=== PATIENT | female | born 1970 | race Caucasian/White ===

== ENCOUNTER 2016-08-28 16:29 | Emergency (ER) | payer OTHER ==
[~2016-08-28] VITALS: Ht 147.3 cm; Wt 62.0 kg
[~2016-08-28 16:29] MED LIST: ALBUAER19 INH; ALPR-411 PO; CYAN3INJ IM; MULTCHW PO; POLY99.02 OP
[2016-08-28 16:35] VITALS: TEMP 36.8; Ht 147.3 cm; Wt 62.0 kg
[2016-08-28] MEDS ORDERED: MULT-845 PO (16:48)
[2016-08-28] MEDS ORDERED: VNTHFA/IN INH (16:48)
[2016-08-28] MEDS ORDERED: NITR1CAP16 PO (16:48)
[2016-08-28] MEDS ORDERED: ZINC1TAB PO (16:48)
[2016-08-28] MEDS ORDERED: ERGO500037 PO (16:48)
[2016-08-28] MEDS ORDERED: ALPR-411 PO (16:48)
[2016-08-28] MEDS ORDERED: CYNI1000 INJ (16:50)
[2016-08-28] MEDS ORDERED: KETOROLAC TROMETHAMINE 60 MG/2 ML VIAL IM STA (17:07)
--- NOTE | 2016-08-28 18:37 | DIAGNOSTIC IMAGING REPORT ---
LEFT SHOULDER 3 VIEWS HISTORY: Left shoulder pain COMPARISON: None. FINDINGS: There is no fracture or dislocation. Soft tissues are unremarkable. Partially visualized left-sided shunt catheter is unchanged in appearance. The left clavicle is intact. IMPRESSION: No fractures. Electronically signed by: Bill Paulino M.D. 08/28/2016 6:36 PM Dictated Date/Time: 08/28/2016 6:34 PM
--- NOTE | 2016-08-28 18:40 | EMERGENCY ROOM VISIT NOTE ---
ED Visit Note First contact with patient: 16:51 Staff note: I have reviewed the Patients chart and have discussed this case with my PA. I generally agree with the ED note and findings.
--- NOTE | 2016-08-28 18:41 | EMERGENCY ROOM VISIT NOTE ---
ED Visit Note First contact with patient: 16:51 CHIEF COMPLAINT: Left shoulder pain HISTORY OF PRESENT ILLNESS: This 46-year-old female who is wheelchair bound presents the ER with chief complaint of left shoulder pain. The patient states 3 weeks ago she was swing dancing and her dance partner and grabbed her arm and pulled it backwards and she was unable to get her wheelchair turned to the left quick enough and strained her left shoulder. 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 The patient states that she still has pain in the shoulder. It was getting better but then today it started getting worse again. The patient denies any numb some tingling in her arm. The patient has seen [facility] in the past for other orthopedic needs. REVIEW OF SYSTEMS: 6 system review was performed and was negative unless stated otherwise in history of present illness. PMH: The patient is healthy; spina bifida, hydrocephalus, left lower leg amputee. SOCIAL HISTORY: Patient lives with her boyfriend. The patient denies any tobacco or alcohol use. PHYSICAL EXAM: Vital Signs: Were reviewed Reviewed nurse's notes. GENERAL: 46- year-old white female appears in no acute distress. She is sitting in a wheelchair. MENTAL Status: Alert and oriented 3. LEFT shoulder: No gross bony deformity noted. Patient is full range of motion of both left shoulder. The patient has point tenderness over the anterior aspect of the joint space. The patient is increased pain with supination of the hand with her arm down by her side. Muscle strength is 5 out of 5 as compared to the right.. EMERGENCY DEPARTMENT COURSE: The patient was evaluated. The patient's EMR and medication list were reviewed. X-ray of the left shoulder was ordered and interpreted by the radiologist and myself. DIAGNOSTICS:LEFT SHOULDER 3 VIEWS HISTORY: Left shoulder pain COMPARISON: None. FINDINGS: There is no fracture or dislocation. Soft tissues are unremarkable. Partially visualized left-sided shunt catheter is unchanged in appearance. The left clavicle is intact. IMPRESSION: No fractures. Electronically signed by: Bill Paulino M.D. 08/28/2016 6:36 PM Dictated Date/Time: 08/28/2016 6:34 PM The patient was informed of the findings. The patient was reevaluated and stated she was feeling better. The patient was placed in arm sling. The patient was independently evaluated for Dr. Sy who agreed with treatment plan. The patient was discharged home in stable condition. DIAGNOSIS: Biceps tendinitis left shoulder DISCHARGE INSTRUCTIONS & TREATMENT: Rest the arm in a sling until the pain subsides. Take the Voltaren with food as prescribed. If symptoms are not improving in 3-4 days recommend follow-up with [facility]. Problem List Medical Problems: (1) Asthma Status: Chronic (2) Chronic urinary tract infection Status: Chronic (3) Diabetes mellitus Status: Chronic (4) Gastric Bypass Surgery Status: Resolved (5) Gastroesophageal reflux disease Status: Chronic (6) History of reduction of breast Status: Resolved (7) Hydrocephalus Status: Chronic (8) Left BKA Status: Resolved (9) Spina bifida Status: Chronic (10) [employer] Shunt Status: Chronic Current/Historical Medications Scheduled Alprazolam (Xanax), 1 MG PO DAILY Cyanocobalamin (Cyanocobalamin), 1 EA INJ Q3MO Ergocalciferol (Vitamin D 34834 Unit), 50,000 UNIT PO 2XWK Multiple Vitamins W/ Minerals (Centrum Silver Adult 50+), 1 TAB PO DAILY Nitrofurantoin Monohyd Macro (Macrobid), 100 MG PO BID Zinc Gluconate (Zinc), 1 TAB PO DAILY Scheduled PRN Albuterol Hfa (Ventolin Hfa), 2 PUFFS INH Q6H PRN for allergies Allergies Coded Allergies: Citalopram (Verified Allergy, Unknown, unknown, 08/28/16) Vancomycin (Verified Adverse Reaction, Severe, MATT, 08/28/16) Vital Signs Date Time Temp Pulse Resp B/P (MAP) Pulse Ox O2 Delivery O2 Flow Rate FiO2 08/28/16 16:35 36.8 83 18 111/68 97 Medications Administered Medications (Trade) Dose Ordered Sig/Xi Route Start Time Stop Time Status Last Admin Dose Admin Ketorolac Tromethamine (Toradol Inj) 60 mg NOW STAT IM 08/28/16 17:07 08/28/16 17:09 DC 08/28/16 17:07 60 MG Departure Information Referrals Edd Izaguirre M.D. (PCP) Patient Instructions [facility]
[2016-08-28] MEDS ORDERED: DICL75TA2 PO (18:43)
[2016-08-28 18:52] VITALS: BP 119/73; PULSE 80; O2SAT 98
== END 2016-08-28 18:53 | disposition home or self-care (01) ==
LOC: C.EDB 16:30 → C.EDD 18:53
DX: M75.22 Bicipital tendinitis, left shoulder (principal); Q05.9 Spina bifida, unspecified; G91.9 Hydrocephalus, unspecified; Z89.512 Acquired absence of left leg below knee; J45.909 Unspecified asthma, uncomplicated; E11.9 Type 2 diabetes mellitus without complications; K21.9 Gastro-esophageal reflux disease without esophagitis

== ENCOUNTER 2019-01-17 08:42 | Inpatient (IN) ==
[2019-01-17] MEDS ORDERED: ACETAMINOPHEN 500 MG TAB PO STA (08:54)
[2019-01-17] MEDS ORDERED: ONDANSETRON INJ 2 MG/ML 2 ML VIAL IV STA (08:55)
--- NOTE | 2019-01-17 09:04 | XRay Report ---
XR chest 1V portable HISTORY: 48 years-old Female Pt c/o left sided chest pain acute left-sided chest pain COMPARISON: Chest radiograph 09/19/2018 TECHNIQUE: Portable AP view of the chest FINDINGS: Unchanged positioning of the left pectoral Fekzwa-w-Ziga catheter. Clip projects over the left medias tinum. Cardiac mediastinal and hilar silhouettes are unchanged. There is no pneumothorax, pleural eff usion, focal airspace consolidation or overt pulmonary edema. Cholecystectomy. Degenerative changes o f the shoulders and spine. IMPRESSION: No acute process. The above report was generated using voice recognition software. It may contain grammatical, syntax o r spelling errors. Electronically signed by: Gene Dalton M.D. 01/17/2019 9:03 AM
[2019-01-17] MEDS: HYDROmorphone INJ 0.5 MG/0.5 ML SYR IV PRN ×2 (09:07→10:11)
[2019-01-17 09:22] LABS: iSTAT Creatinine 0.8 mg/dl (0.6-1.3); iSTAT Hemoglobin 7.1 g/dl (12.0-16.0); iSTAT Ionized Calcium 1.2 mmol/l (1.12-1.32); iSTAT Potassium 4.1 mEq/L (3.3-5.0)
[2019-01-17 09:30] LABS: Alanine Aminotransferase 15 U/L (12-78); Albumin Level 2.6 gm/dl (3.4-5.0); Aspartate Aminotransferase 17 U/L (15-37); BUN Creatinine Ratio 25.2 (10-20); Blood Urea Nitrogen 21 mg/dl (7-18); Calcium 8.7 mg/dl (8.5-10.1); Carbon Dioxide 24 mmol/L (21-32); Chloride 104 mmol/L (98-107); Est GFR (African American) 94.6; Est GFR (Non-African American) 81.6; Glucose 88 mg/dl (70-99); Lipase 82 U/L (73-393); Potassium 4.1 mmol/L (3.5-5.1); Sodium 136 mmol/L (136-145)
[2019-01-17] MEDS ORDERED: SODIUM CHLORIDE 0.9% 1000ML 500 ML IV ONE (09:33)
[2019-01-17] MEDS ORDERED: OPTIRAY 320 125ml IV PRN (09:34)
[2019-01-17 09:35] LABS: Albumin Globulin Ratio 0.7 (0.9-2); Alkaline Phosphatase 167 U/L (45-117); Bilirubin,Total 1.4 mg/dl (0.2-1); Creatine Kinase 32 U/L (26-192); Creatine Kinase MB < 1.0 ng/ml (0.5-3.6); Globulin 3.5 gm/dl (2.5-4.0); Total Protein 6.1 gm/dl (6.4-8.2); Troponin I < 0.015 ng/ml (0-0.045)
--- NOTE | 2019-01-17 09:54 | CT Scan Report ---
CT ANGIOGRAM OF THE CHEST CLINICAL HISTORY: Atypical chest pain and shortness of breath. Suspected pulmonary wasn't. COMPARISON STUDY: Chest x-ray dated 01/17/2019 TECHNIQUE: Following the IV administration of 119 mL of Optiray-320, CT angiogram of the thorax was p erformed from the thoracic inlet to the lung bases utilizing the pulmonary embolus protocol. Images a re reviewed in the axial, sagittal, and coronal planes. IV contrast was administered without complica tion. MIP imaging was performed. A dose lowering technique was utilized adhering to the principles o f ALARA. CT DOSE: 297.37 mGy.cm FINDINGS: There are enlarged left paratracheal/retroclavicular lymph nodes at the base of the left neck measuri ng up to 21 mm in diameter. There are enlarged superior mediastinal prevascular nodes measuring up to 19 mm in diameter. There is a left-sided A-Port catheter present. There was no evidence of thoracic aortic dilatation. Evaluation of pulmonary emboli is compromised due to moderate respiratory motion artifact. No central emboli are visualized. There are a few tiny age-indeterminate pulmonary artery filling defects. No pleural effusions are visualized. There is no focal pulmonary consolidation. Evaluation the lung parenchyma is limited due to respirato ry motion artifact IMPRESSION: 1. Study compromised due to patient motion artifact 2. There are a few tiny age-indeterminate pulmonary emboli 3. No central emboli identified 4. Enlarged left-sided mediastinal lymph nodes Electronically signed by: Chris Siegel M.D. 01/17/2019 9:53 AM
[2019-01-17 10:22] LABS: Hematocrit (blood only) 20.1 % (37-47); Hemoglobin 6.1 g/dL (12.0-16.0); Mean Corpuscular Hemoglobin 30.8 pg (25-34); Mean Corpuscular Hgb Conc 30.3 g/dL (32-36); Mean Corpuscular Volume 101.5 fL (80-100); Mean Platelet Volume 8.4 fL (7.4-10.4); Nucleated RBC # (auto) 0.08 K/uL (0-0); Nucleated RBC % (auto) 0.6 %; Platelet Count 448 K/uL (130-400); RDW Coefficient of Variation 22.5 % (11.5-14.5); RDW Standard Deviation 80.6 fL (36.4-46.3); Red Blood Count 1.98 M/uL (4.2-5.4)
[2019-01-17 10:23] LABS: INR 1.1 (0.9-1.1); Partial Thromboplastin Ratio 0.8; Partial Thromboplastin Time 21.3 Seconds (21.0-31.0); Prothrombin Time 11.1 Seconds (9.0-12.0)
[2019-01-17 10:25] LABS: Anisocytosis Present; Basophils # (auto) 0.01 K/uL (0-0.2); Basophils % (auto) 0.1 %; Eosinophils # (auto) 0.01 K/uL (0-0.5); Eosinophils % (auto) 0.1 %; Immature Granulocytes # (auto) 0.23 K/uL (0.00-0.02); Lymphocytes # (auto) 2.51 K/uL (1.2-3.4); Lymphocytes % (auto) 21.6 %; Monocytes % (auto) 7.8 %; Neutrophils # (auto) 7.94 K/uL (1.4-6.5); Neutrophils % (auto) 68.4 %; Schistocytes 1+; Target Cells 1+
[2019-01-17] MEDS ORDERED: SODIUM CHLORIDE 0.9% 250 ML IV PRN ×3 (10:26→17:02)
--- NOTE | 2019-01-17 11:45 | History & Physical Report ---
Date of Service January 17, 2019 Assessment & Plan (1) Pulmonary emboli: Patient with pleuritic chest pain. No hypoxia, no respiratory distress or hemodynamic compromise. Some concern for GIB given anemia, elevated BUN and recent Naproxen use. -Transfusion as below -Check FOBT -Check bilateral LE doppler -Will initiate anticoagulation after transfusion and FOBT result Present on Admission?: Yes (2) Anemia: Hg=6.1, Hct=20.1 which is acutely down from 11.1 and 34.8, respectively (on June 14, 2018). Macrocytic with MCN=904.5. ?blood loss - patient with elevated BUN, recent use of Naproxen vs chemotherapy induced vs other. Patient is hemodynamically stable. No active bleeding at present. She denies melena/hematochezia/hematuria/bleeding/bruising. -Transfusion started in ER - will give 2u PRBCs -CBC q 12 hours -Check B12 and Folate. Patient receives B12 injections -Check FOBT Present on Admission?: Yes (3) Neurogenic bladder: Patient with spina bifida, neurogenic bladder. She self caths at home 6-8 times per day. -Aguilar catheter with routine care q shift -Continue Oxybutynin -Check UA and culture Present on Admission?: Yes (4) Hypothyroidism: Chronic. Stable -Continue Synthroid. -Check TSH Present on Admission?: Yes (5) Asthma: Chronic. Stable. No wheeze or respiratory distress -Albuterol PRN Present on Admission?: Yes (6) Depression: Chronic. Stable -Continue Cymbalta Present on Admission?: Yes (7) Diabetes mellitus: Resolved after gastric bypass surgery Present on Admission?: Yes (8) Spina bifida of lumbar region: Noted -Aguilar catheter to be placed -Diapering and routine care q shift Present on Admission?: Yes (9) GERD (gastroesophageal reflux disease): Chronic -Continue Pepcid Present on Admission?: Yes (10) Sleep apnea: Chronic -CPAP q HS F/E/N - Heplock. Monitor electrolytes. Regular, soft diet Ppx - Anticoagulation to be initiated after transfusion and FOBT results Code -Full Dispo - Admit to medical floor with telemetry History of Present Illness Chief Complaint: Chest pain Primary Care Provider: DO Reilly Gonzalez is a 48-year-old female presenting with 1 day of left-sided muscle spasm in the chest stabbing in nature, severe. Also with shortness of breath and nonproductive cough. History of bladder cancer presently on chemotherapy. She follows with Dr. Alvarado. Recently had some sort of staging performed and was told that her cancer has progressed. She is being seen at [facility] now.. Last chemotherapy was 2 weeks ago. She is due to have her next treatment this ER course: Tylenol, Dilaudid, Zofran, normal saline Allergies Allergy/AdvReac Type Severity Reaction Status Date / Time vancomycin Allergy Severe MATT Verified 01/17/19 10:31 citalopram Allergy Intermediate Hives Verified 01/17/19 10:31 tape AdvReac Mild rash Uncoded 01/17/19 10:31 Home Medications Home Medications Medication Instructions Recorded Confirmed Type zinc 50 mg PO QAM 08/15/18 01/17/19 History albuterol sulfate 90 mcg/actuation 1 inh INHALATION QID PRN #1 ea 09/21/18 01/17/19 Rx breath activated powder inhaler cyanocobalamin (vit B-12) 1,000 1,000 mcg SQ .COMPLEX 09/21/18 01/17/19 History mcg/mL injection solution levothyroxine 75 mcg tablet 75 mcg PO QAM #30 tab 09/21/18 01/17/19 Rx multivitamin chewable tablet 1 tab PO QAM 09/21/18 01/17/19 History oxybutynin chloride 5 mg tablet 5 mg PO BID #60 tab 09/21/18 01/17/19 Rx naproxen 250 mg tablet 250 mg PO Q12H PRN #60 tab 10/20/18 01/17/19 Rx CPAP Machine #1 ea 01/04/19 01/17/19 Rx CPAP Supplies #1 ea 01/04/19 01/17/19 Rx Chemotherapy 1 dose IV UD 01/17/19 01/17/19 History duloxetine 30 mg capsule,delayed 30 mg PO QAM #30 cap 01/17/19 Rx release ergocalciferol (vitamin D2) 50,000 unit PO WE 01/17/19 01/17/19 History [Vitamin D2] famotidine 40 mg PO DAILY PRN 01/17/19 01/17/19 History naproxen 500 mg PO BID 01/17/19 01/17/19 History Past Med/Surg History Medical History Vitamin D deficiency Urinary incontinence Sleep apnea Hiatal hernia 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 Only during allergy seasons. Last use was about 3 weeks ago. Denies h/o hospitalization and intubation due to asthma Anxiety Hypothyroidism Dyslipidemia Neurogenic bladder ST CATH 6X DAILY AND PRN Hydrocephalus (Chronic 05/20/12) s/p [employer] shunt AND REPLACED AT AGE 2 Seasonal allergies REASON FOR INHALER RX (HAS NOT USED FOR A LONG TIME) Surgical History Status post gastric bypass for obesity History of reduction of breast (Resolved 05/20/12) H/O transurethral destruction of bladder lesion TURBT 08/17/18 History of amputation below knee 2/2 osteomylitis History of cystoscopy History of dilatation and curettage UTERINE ABLATION History of esophagogastroduodenoscopy (EGD) History of open reduction and internal fixation (ORIF) procedure LEFT LEG History of surgery MULTIPLE SURGERIES ON LEFT LEG (I&D'S) History of tooth extraction Hx laparoscopic cholecystectomy Hx of bilateral breast reduction surgery S/P panniculectomy Family History Grandmother (Paternal) Diabetes Grandfather (Paternal) Diabetes Coronary heart disease Aunt Diabetes Uncle Diabetes Uncle Diabetes Other No significant family history Social History Preferred Language: Estonian Communication Ability: Effective Visual Impairment: No Limitations Hearing Ability: Normal 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 Beliefs That Will Affect Care: None marital status: Current Living Situation: Spouse current occupational status: disabled Other Information That Helps Us Care for You: No Feels Safe at Home: Yes Safety Concerns: Feels Safe At This Time Smoking Status: Former smoker Tobacco Type: cigarettes ; Cigarettes Per Day: 10 CIG IN THE PAST MONTH ; Second Hand Exposure: Yes ; Hx Alcohol Use: Yes Alcohol type: beer Hx Substance Use: No Childhood Exposure to Second-Hand Smoke: Yes caffeine: Yes Dental Care, Regularly: No Physical Activity Frequency: Does not Exercise Seatbelt Use: sometimes Sunscreen Use: Yes Review of Systems Review of Systems: All systems reviewed & are unremarkable except as noted in HPI & below Patient denies dizziness, syncope, palpitations Physical Exam Physical Exam: General: patient resting comfortably, NAD, non-toxic in appearance, AA&O x 4 Skin: warm, dry, intact, no rashes or lesions, +pallor of skin/oral mucosa and conjunctiva HEENT: NC/AT, frontal bossing, PERRL, EOMI, anicteric sclera, conjunctiva without injection, external ear normal to inspection and nontender, nares patent, moist mucus membranes, edentulous, no oropharyngeal lesions, neck supple, trachea midline, no LAD, no thyromegaly, no JVD Heart: +S1/S2, regular, no m/r/g, +pain with deep inspiration on left lateral chest wall Lungs: equal air entry bilaterally, no rales/rhonchi/wheezes Abd: +BS, soft, NT/ND, no masses/organomegaly/ascites Ext: hands warm with 2+ pulses, right foot with absent sensation from , immobile, s/p left BKA Neuro: patient AA&O x 4, speech intact, no facial droop, hand strength 5/5, patient with spina bifida, unable to move RLE Results & Data Vital Signs (Past 12 Hours) Vital Signs Temp Pulse Resp BP BP Pulse Ox 01/17/19 11:16 36.5 C 70 20 108/70 97 01/17/19 11:15 69 16 97 01/17/19 11:01 70 15 95 01/17/19 11:00 69 17 113/66 96 01/17/19 10:06 18 100/56 L 92 01/17/19 09:35 95 01/17/19 08:55 94 01/17/19 08:47 36.9 C 102 H 20 102/63 98 Laboratory Results Lab Results 01/17/19 01/17/19 01/17/19 Range/Units 09:05 09:05 09:05 WBC 11.60 H (4.8-10.8) K/uL RBC 1.98 L (4.2-5.4) M/uL Hgb 6.1 L* (12.0-16.0) g/dL POC Hgb (12.0-16.0) g/dl Hct 20.1 L* (37-47) % POC Hct (37-47) % MCV 101.5 H (80-100) fL MCH 30.8 (25-34) pg MCHC 30.3 L (32-36) g/dL RDW Std Deviation 80.6 H (36.4-46.3) fL RDW Coeff of Jennifer 22.5 H (11.5-14.5) % Plt Count 448 H (130-400) K/uL MPV 8.4 (7.4-10.4) fL Immature Gran % (Auto) 2.0 % Neut % (Auto) 68.4 % Lymph % (Auto) 21.6 % Butts % (Auto) 7.8 % Eos % (Auto) 0.1 % Baso % (Auto) 0.1 % Immature Gran # (Auto) 0.23 H (0.00-0.02) K/uL Neut # (Auto) 7.94 H (1.4-6.5) K/uL Lymph # (Auto) 2.51 (1.2-3.4) K/uL Butts # (Auto) 0.90 H (0.11-0.59) K/uL Eos # (Auto) 0.01 (0-0.5) K/uL Baso # (Auto) 0.01 (0-0.2) K/uL Absolute Nucleated RBC 0.08 H (0-0) K/uL Nucleated RBC % (auto) 0.6 % Polychromasia Anisocytosis Present Target Cells 1+ Echinocytes Schistocytes 1+ PT 11.1 (9.0-12.0) Seconds INR 1.1 (0.9-1.1) APTT 21.3 (21.0-31.0) Seconds PTT Ratio 0.8 POC Sodium (135-144) mEq/L Sodium 136 (136-145) mmol/L POC Potassium (3.3-5.0) mEq/L Potassium 4.1 (3.5-5.1) mmol/L POC Chloride (101-112) mEq/L Chloride 104 (98-107) mmol/L Carbon Dioxide 24 (21-32) mmol/L POC Total CO2 (24-31) mEq/l Anion Gap 8.0 (3-11) POC Anion Gap (16-25) mmol/L POC BUN (7-18) mg/dl BUN 21 H (7-18) mg/dl Creatinine 0.84 (0.6-1.2) mg/dl POC Creatinine (0.6-1.3) mg/dl Est Cr Clr Drug Dosing Not Reportable Est GFR ( Amer) 94.6 Est GFR (Non-Af Amer) 81.6 BUN/Creatinine Ratio 25.2 H (10-20) Glucose 88 (70-99) mg/dl POC Glucose (other) (70-99) mg/dl Calcium 8.7 (8.5-10.1) mg/dl POC Ioniz Calcium Bruna (1.12-1.32) mmol/l Phosphorus (2.5-4.9) mg/dl Magnesium (1.8-2.4) mg/dl Total Bilirubin 1.4 H (0.2-1) mg/dl AST 17 (15-37) U/L ALT 15 (12-78) U/L Alkaline Phosphatase 167 H (45-117) U/L Total Creatine Kinase 32 (26-192) U/L CK-MB (CK-2) < 1.0 (0.5-3.6) ng/ml CK/CKMB % Calc TNP Troponin I < 0.015 (0-0.045) ng/ml Total Protein 6.1 L (6.4-8.2) gm/dl Albumin 2.6 L (3.4-5.0) gm/dl Globulin 3.5 (2.5-4.0) gm/dl Albumin/Globulin Ratio 0.7 L (0.9-2) Lipase 82 (73-393) U/L Vitamin B12 (211-911) pg/ml Folate (>5.38) ng/ml Urine Color Urine Appearance (Clear) Urine pH (4.5-7.5) Ur Specific [place] (1.000-1.030) Urine Protein (Negative) Urine Glucose (UA) (Negative) Urine Ketones (Negative) Urine Blood (Negative) Urine Nitrite (Negative) Urine Bilirubin (Negative) Urine Urobilinogen (Negative) Ur Leukocyte Esterase (Negative) Urine WBC (Auto) (0-5) /hpf Urine RBC (Auto) (0-4) /hpf U Hyaline Cast (Auto) (0-5) /lpf U Epithel Cells (Auto) (0-5) /lpf Urine Bacteria (Auto) (Negative) Urine Yeast Blood Type Antibody Screen Crossmatch 01/17/19 01/17/19 01/17/19 Range/Units 09:05 09:11 10:02 WBC (4.8-10.8) K/uL RBC (4.2-5.4) M/uL Hgb (12.0-16.0) g/dL POC Hgb 7.1 L (12.0-16.0) g/dl Hct (37-47) % POC Hct 21 L (37-47) % MCV (80-100) fL MCH (25-34) pg MCHC (32-36) g/dL RDW Std Deviation (36.4-46.3) fL RDW Coeff of Jennifer (11.5-14.5) % Plt Count (130-400) K/uL MPV (7.4-10.4) fL Immature Gran % (Auto) % Neut % (Auto) % Lymph % (Auto) % Butts % (Auto) % Eos % (Auto) % Baso % (Auto) % Immature Gran # (Auto) (0.00-0.02) K/uL Neut # (Auto) (1.4-6.5) K/uL Lymph # (Auto) (1.2-3.4) K/uL Butts # (Auto) (0.11-0.59) K/uL Eos # (Auto) (0-0.5) K/uL Baso # (Auto) (0-0.2) K/uL Absolute Nucleated RBC (0-0) K/uL Nucleated RBC % (auto) % Polychromasia Anisocytosis Target Cells Echinocytes Schistocytes PT (9.0-12.0) Seconds INR (0.9-1.1) APTT (21.0-31.0) Seconds PTT Ratio POC Sodium 135 (135-144) mEq/L Sodium (136-145) mmol/L POC Potassium 4.1 (3.3-5.0) mEq/L Potassium (3.5-5.1) mmol/L POC Chloride 101 (101-112) mEq/L Chloride (98-107) mmol/L Carbon Dioxide (21-32) mmol/L POC Total CO2 24 (24-31) mEq/l Anion Gap (3-11) POC Anion Gap 16.0 (16-25) mmol/L POC BUN 19 H (7-18) mg/dl BUN (7-18) mg/dl Creatinine (0.6-1.2) mg/dl POC Creatinine 0.8 (0.6-1.3) mg/dl Est Cr Clr Drug Dosing Est GFR ( Amer) Est GFR (Non-Af Amer) BUN/Creatinine Ratio (10-20) Glucose (70-99) mg/dl POC Glucose (other) 89 (70-99) mg/dl Calcium (8.5-10.1) mg/dl POC Ioniz Calcium Bruna 1.20 (1.12-1.32) mmol/l Phosphorus 4.5 (2.5-4.9) mg/dl Magnesium 1.3 L (1.8-2.4) mg/dl Total Bilirubin (0.2-1) mg/dl AST (15-37) U/L ALT (12-78) U/L Alkaline Phosphatase (45-117) U/L Total Creatine Kinase (26-192) U/L CK-MB (CK-2) (0.5-3.6) ng/ml CK/CKMB % Calc Troponin I (0-0.045) ng/ml Total Protein (6.4-8.2) gm/dl Albumin (3.4-5.0) gm/dl Globulin (2.5-4.0) gm/dl Albumin/Globulin Ratio (0.9-2) Lipase (73-393) U/L Vitamin B12 (211-911) pg/ml Folate (>5.38) ng/ml Urine Color Urine Appearance (Clear) Urine pH (4.5-7.5) Ur Specific [place] (1.000-1.030) Urine Protein (Negative) Urine Glucose (UA) (Negative) Urine Ketones (Negative) Urine Blood (Negative) Urine Nitrite (Negative) Urine Bilirubin (Negative) Urine Urobilinogen (Negative) Ur Leukocyte Esterase (Negative) Urine WBC (Auto) (0-5) /hpf Urine RBC (Auto) (0-4) /hpf U Hyaline Cast (Auto) (0-5) /lpf U Epithel Cells (Auto) (0-5) /lpf Urine Bacteria (Auto) (Negative) Urine Yeast Blood Type O Positive Antibody Screen NEGATIVE Crossmatch See Detail 01/17/19 01/17/19 01/17/19 Range/Units 13:50 16:18 16:18 WBC 15.74 H (4.8-10.8) K/uL RBC 2.57 L (4.2-5.4) M/uL Hgb 8.0 L (12.0-16.0) g/dL POC Hgb (12.0-16.0) g/dl Hct 24.9 L (37-47) % POC Hct (37-47) % MCV 96.9 (80-100) fL MCH 31.1 (25-34) pg MCHC 32.1 (32-36) g/dL RDW Std Deviation 71.8 H (36.4-46.3) fL RDW Coeff of Jennifer 21.1 H (11.5-14.5) % Plt Count 409 H (130-400) K/uL MPV 8.7 (7.4-10.4) fL Immature Gran % (Auto) 1.6 % Neut % (Auto) 69.5 % Lymph % (Auto) 20.6 % Butts % (Auto) 7.9 % Eos % (Auto) 0.3 % Baso % (Auto) 0.1 % Immature Gran # (Auto) 0.25 H (0.00-0.02) K/uL Neut # (Auto) 10.92 H (1.4-6.5) K/uL Lymph # (Auto) 3.25 (1.2-3.4) K/uL Butts # (Auto) 1.25 H (0.11-0.59) K/uL Eos # (Auto) 0.05 (0-0.5) K/uL Baso # (Auto) 0.02 (0-0.2) K/uL Absolute Nucleated RBC 0.08 H (0-0) K/uL Nucleated RBC % (auto) 0.5 % Polychromasia 1+ Anisocytosis Present Target Cells Echinocytes 1+ Schistocytes 1+ PT (9.0-12.0) Seconds INR (0.9-1.1) APTT (21.0-31.0) Seconds PTT Ratio POC Sodium (135-144) mEq/L Sodium (136-145) mmol/L POC Potassium (3.3-5.0) mEq/L Potassium (3.5-5.1) mmol/L POC Chloride (101-112) mEq/L Chloride (98-107) mmol/L Carbon Dioxide (21-32) mmol/L POC Total CO2 (24-31) mEq/l Anion Gap (3-11) POC Anion Gap (16-25) mmol/L POC BUN (7-18) mg/dl BUN (7-18) mg/dl Creatinine (0.6-1.2) mg/dl POC Creatinine (0.6-1.3) mg/dl Est Cr Clr Drug Dosing Est GFR ( Amer) Est GFR (Non-Af Amer) BUN/Creatinine Ratio (10-20) Glucose (70-99) mg/dl POC Glucose (other) (70-99) mg/dl Calcium (8.5-10.1) mg/dl POC Ioniz Calcium Bruna (1.12-1.32) mmol/l Phosphorus (2.5-4.9) mg/dl Magnesium (1.8-2.4) mg/dl Total Bilirubin (0.2-1) mg/dl AST (15-37) U/L ALT (12-78) U/L Alkaline Phosphatase (45-117) U/L Total Creatine Kinase (26-192) U/L CK-MB (CK-2) (0.5-3.6) ng/ml CK/CKMB % Calc Troponin I (0-0.045) ng/ml Total Protein (6.4-8.2) gm/dl Albumin (3.4-5.0) gm/dl Globulin (2.5-4.0) gm/dl Albumin/Globulin Ratio (0.9-2) Lipase (73-393) U/L Vitamin B12 693 (211-911) pg/ml Folate 4.69 L (>5.38) ng/ml Urine Color Dark Yellow Urine Appearance Cloudy A (Clear) Urine pH 7.5 (4.5-7.5) Ur Specific [place] 1.035 H (1.000-1.030) Urine Protein Trace H (Negative) Urine Glucose (UA) Negative (Negative) Urine Ketones Negative (Negative) Urine Blood 2+ H (Negative) Urine Nitrite Positive A (Negative) Urine Bilirubin Negative (Negative) Urine Urobilinogen Negative (Negative) Ur Leukocyte Esterase 2+ H (Negative) Urine WBC (Auto) >30 H (0-5) /hpf Urine RBC (Auto) 0-4 (0-4) /hpf U Hyaline Cast (Auto) 1-5 (0-5) /lpf U Epithel Cells (Auto) 0-5 (0-5) /lpf Urine Bacteria (Auto) 4+ H (Negative) Urine Yeast Not Reportable Blood Type Antibody Screen Crossmatch Diagnostic Findings XR chest 1V portable HISTORY: 48 years-old Female Pt c/o left sided chest pain acute left-sided chest pain COMPARISON: Chest radiograph 09/19/2018 TECHNIQUE: Portable AP view of the chest FINDINGS: Unchanged positioning of the left pectoral [id number] catheter. Clip projects over the left mediastinum. Cardiac mediastinal and hilar silhouettes are unchanged. There is no pneumothorax, pleural effusion, focal airspace consolidation or overt pulmonary edema. Cholecystectomy. Degenerative changes of the shoulders and spine. IMPRESSION: No acute process. The above report was generated using voice recognition software. It may contain grammatical, syntax or spelling errors. Electronically signed by: Gene Dalton M.D. 01/17/2019 9:03 AM Dictated: 01/17/19901 Transcribed: 01/17/19901 CT ANGIOGRAM OF THE CHEST CLINICAL HISTORY: Atypical chest pain and shortness of breath. Suspected pulmonary wasn't. COMPARISON STUDY: Chest x-ray dated 01/17/2019 TECHNIQUE: Following the IV administration of 119 mL of Optiray-320, CT angiogram of the thorax was performed from the thoracic inlet to the lung bases utilizing the pulmonary embolus protocol. Images are reviewed in the axial, sagittal, and coronal planes. IV contrast was administered without complication. MIP imaging was performed. A dose lowering technique was utilized adhering to the principles of ALARA. CT DOSE: 297.37 mGy.cm FINDINGS: There are enlarged left paratracheal/retroclavicular lymph nodes at the base of the left neck measuring up to 21 mm in diameter. There are enlarged superior mediastinal prevascular nodes measuring up to 19 mm in diameter. There is a left-sided A-Port catheter present. There was no evidence of thoracic aortic dilatation. Evaluation of pulmonary emboli is compromised due to moderate respiratory motion artifact. No central emboli are visualized. There are a few tiny age- indeterminate pulmonary artery filling defects. No pleural effusions are visualized. There is no focal pulmonary consolidation. Evaluation the lung parenchyma is limited due to respiratory motion artifact IMPRESSION: 1. Study compromised due to patient motion artifact 2. There are a few tiny age-indeterminate pulmonary emboli 3. No central emboli identified 4. Enlarged left-sided mediastinal lymph nodes Electronically signed by: Chris Siegel M.D. 01/17/2019 9:53 AM Dictated: 01/17/19 0942 Transcribed: 01/17/19 0953 US venous doppler LE BI HISTORY: Pain. Edema. PE COMPARISON STUDY: None. FINDINGS: There is normal compressibility, flow, and augmentation within the bilateral lower extremity deep venous systems. IMPRESSION: No DVT within the right or left lower extremity. The above report was generated using voice recognition software. It may contain grammatical, syntax or spelling errors. Electronically signed by: Sal Reynolds M.D. 01/17/2019 3:19 PM Dictated: 01/17/191518 Transcribed: 01/17/191518 ECG Additional Comments: Study shows sinus tachycardia 108 bpm, low voltage, TX = 168, QRS = 74, QTc = 426. Patient with nonspecific T wave abnormalities Code Status & VTE Plan Code Status Full code VTE Prophylaxis Plan VTE Prophylaxis will be ordered: Yes PG Care Time/CCT Total # of Minutes Spent Total Time Spent with Patient: Total time spent is greater than 50% in coordination of care (as documented) at patient's floor/unit and/or counseling patient: (1) Sleep apnea Sleep apnea type: unspecified type Qualified Code(s): G47.30 - Sleep apnea, unspecified (2) Diabetes mellitus Diabetes mellitus complication status: without complication Diabetes mellitus assisted insulin use: without assisted use Diabetes mellitus type: due to underlying condition Qualified Code(s): E08.9 - Diabetes mellitus due to underlying condition without complications (3) Anemia Anemia type: unspecified type Qualified Code(s): D64.9 - Anemia, unspecified (4) Depression Active/Remission status: remission status unspecified Depression Type: major depressive disorder Major depression recurrence: unspecified whether recurrent Qualified Code(s): F32.9 - Major depressive disorder, single episode, unspecified (5) Hypothyroidism Hypothyroidism type: unspecified Qualified Code(s): E03.9 - Hypothyroidism, unspecified (6) Spina bifida of lumbar region Presence of hydrocephalus: with hydrocephalus Qualified Code(s): Q05.2 - Lumbar spina bifida with hydrocephalus (7) Pulmonary emboli Acute cor pulmonale presence: without acute cor pulmonale Chronicity: unspecified Pulmonary embolism type: other Qualified Code(s): I26.99 - Other pulmonary embolism without acute cor pulmonale (8) GERD (gastroesophageal reflux disease) Esophagitis presence: esophagitis presence not specified Qualified Code(s): K21.9 - Gastro-esophageal reflux disease without esophagitis (9) Asthma Asthma complication type: uncomplicated Asthma persistence: intermittent Asthma severity: mild Qualified Code(s): J45.20 - Mild intermittent asthma, uncomplicated
[2019-01-17] MEDS ORDERED: ACETAMINOPHEN 325 MG TAB PO PRN (13:26)
[2019-01-17] MEDS ORDERED: ALBUTEROL HFA 8 GM INHALER INH PRN (14:00)
[2019-01-17] MEDS: OXYCODONE HCL IR 5 MG TAB (IMMEDIATE RELEASE) PO PRN ×2 (14:05→22:28)
[2019-01-17 14:23] LABS: Magnesium 1.3 mg/dl (1.8-2.4); Phosphorus 4.5 mg/dl (2.5-4.9)
[2019-01-17 14:38] LABS: Appearance Urine Cloudy (Clear); Bacteria Urine Automated 4+ (Negative); Bilirubin Urine Negative (Negative); Blood Urine 2+ (Negative); Color Urine Dark Yellow; Epithelial Cell Urine Auto 0-5 /lpf (0-5); Glucose Urine UA Negative (Negative); Ketones Urine Negative (Negative); Leukocyte Esterase Urine 2+ (Negative); Nitrite Urine Positive (Negative); RBC Urine Automated 0-4 /hpf (0-4); Specific Gravity Urine 1.035 (1.000-1.030); Urobilinogen Urine Negative (Negative); WBC Urine Automated >30 /hpf (0-5); pH Urine 7.5 (4.5-7.5)
[2019-01-17 14:59] LABS: Protein Urine Trace (Negative)
[2019-01-17 15:00] LABS: Sulfosalicylic Acid Urine Positive (Negative)
--- NOTE | 2019-01-17 15:20 | Ultrasound Report ---
US venous doppler LE BI HISTORY: Pain. Edema. PE COMPARISON STUDY: None. FINDINGS: There is normal compressibility, flow, and augmentation within the bilateral lower extremit y deep venous systems. IMPRESSION: No DVT within the right or left lower extremity. The above report was generated using voice recognition software. It may contain grammatical, syntax or spelling errors. Electronically signed by: Sal Reynolds M.D. 01/17/2019 3:19 PM
[2019-01-17 16:32] LABS: Basophils # (auto) 0.02 K/uL (0-0.2); Basophils % (auto) 0.1 %; Eosinophils # (auto) 0.05 K/uL (0-0.5); Eosinophils % (auto) 0.3 %; Hematocrit (blood only) 24.9 % (37-47); Immature Granulocytes # (auto) 0.25 K/uL (0.00-0.02); Immature Granulocytes % (auto) 1.6 %; Lymphocytes # (auto) 3.25 K/uL (1.2-3.4); Lymphocytes % (auto) 20.6 %; Mean Corpuscular Hemoglobin 31.1 pg (25-34); Mean Corpuscular Hgb Conc 32.1 g/dL (32-36); Mean Corpuscular Volume 96.9 fL (80-100); Mean Platelet Volume 8.7 fL (7.4-10.4); Monocytes # (auto) 1.25 K/uL (0.11-0.59); Monocytes % (auto) 7.9 %; Neutrophils # (auto) 10.92 K/uL (1.4-6.5); Neutrophils % (auto) 69.5 %; Nucleated RBC # (auto) 0.08 K/uL (0-0); Nucleated RBC % (auto) 0.5 %; Platelet Count 409 K/uL (130-400); RDW Coefficient of Variation 21.1 % (11.5-14.5); RDW Standard Deviation 71.8 fL (36.4-46.3); Red Blood Count 2.57 M/uL (4.2-5.4); White Blood Count 15.74 K/uL (4.8-10.8)
[2019-01-17 17:03] LABS: Anisocytosis Present; Echinocytes 1+; Polychromasia 1+; Schistocytes 1+
[2019-01-17 17:11] LABS: Folate (Folic Acid) 4.69 ng/ml (>5.38)
[2019-01-17] MEDS: OXYBUTYNIN CHLORIDE 5 MG TAB PO SCH (20:03)
[2019-01-17] MEDS ORDERED: HEPARIN 100 UNIT/ML 5ML FLUSH FLUSH PRN (20:24)
[2019-01-18] MEDS ORDERED: Heparin IV Standard *NO* Bolus IV SCH (00:15)
[2019-01-18] MEDS: cefTRIAXone SODIUM 1,000 MG in DEXTROSE 5% 50 ML IV SCH ×2 (01:33→21:12)
[2019-01-18] MEDS: HEPARIN SODIUM/DEXTROSE 25,000 UNITS/500 ML BAG IV SCH (02:11)
[2019-01-18] MEDS ORDERED: OXYCODONE/ACETAMINOPHEN 10-325 TAB PO STA (04:04)
[2019-01-18 04:29] LABS: Basophils # (auto) 0.02 K/uL (0-0.2); Basophils % (auto) 0.2 %; Eosinophils # (auto) 0.11 K/uL (0-0.5); Hematocrit (blood only) 26.2 % (37-47); Hemoglobin 8.6 g/dL (12.0-16.0); Immature Granulocytes # (auto) 0.19 K/uL (0.00-0.02); Immature Granulocytes % (auto) 1.7 %; Lymphocytes # (auto) 3.02 K/uL (1.2-3.4); Lymphocytes % (auto) 27.7 %; Mean Corpuscular Hemoglobin 31.4 pg (25-34); Mean Corpuscular Hgb Conc 32.8 g/dL (32-36); Mean Corpuscular Volume 95.6 fL (80-100); Mean Platelet Volume 8.6 fL (7.4-10.4); Monocytes # (auto) 0.97 K/uL (0.11-0.59); Monocytes % (auto) 8.9 %; Neutrophils % (auto) 60.5 %; Nucleated RBC # (auto) 0.05 K/uL (0-0); Nucleated RBC % (auto) 0.4 %; Platelet Count 281 K/uL (130-400); RDW Coefficient of Variation 21.3 % (11.5-14.5); RDW Standard Deviation 69.5 fL (36.4-46.3); Red Blood Count 2.74 M/uL (4.2-5.4); White Blood Count 10.91 K/uL (4.8-10.8)
[2019-01-18 04:47] LABS: Alanine Aminotransferase 11 U/L (12-78); Aspartate Aminotransferase 14 U/L (15-37); BUN Creatinine Ratio 19.8 (10-20); Bilirubin Direct 0.3 mg/dl (0-0.2); Blood Urea Nitrogen 17 mg/dl (7-18); Calcium 7.9 mg/dl (8.5-10.1); Carbon Dioxide 26 mmol/L (21-32); Chloride 105 mmol/L (98-107); Creatinine Clr Calc Pharmacy 60.6 ml/min; Est GFR (African American) 93.3; Est GFR (Non-African American) 80.5; Glucose 80 mg/dl (70-99); Potassium 4.1 mmol/L (3.5-5.1); Sodium 138 mmol/L (136-145)
[2019-01-18 04:51] LABS: Anisocytosis Present; Polychromasia 1+; Schistocytes 1+
[2019-01-18 04:52] LABS: Alkaline Phosphatase 139 U/L (45-117); Bilirubin,Total 0.9 mg/dl (0.2-1); Troponin I < 0.015 ng/ml (0-0.045)
[2019-01-18] MEDS: LEVOTHYROXINE SODIUM 75 MCG TABLET PO SCH (06:06)
[2019-01-18 08:42] LABS: Partial Thromboplastin Ratio 1.6
[2019-01-18] MEDS ORDERED: FOLIC ACID 1 MG TAB PO SCH (09:00)
[2019-01-18] MEDS ORDERED: ERGOCALCIFEROL 50,000 UNITS CAP PO SCH (09:00)
[2019-01-18] MEDS: OXYBUTYNIN CHLORIDE 5 MG TAB PO SCH ×2 (09:51→21:14)
[2019-01-18] MEDS: DULOXETINE HCL 30 MG CAP PO SCH (09:51)
[2019-01-18] MEDS: FAMOTIDINE 20 MG TAB PO SCH (09:52)
[2019-01-18] MEDS: ZINC SULFATE 220 MG CAPSULE PO SCH (09:52)
[2019-01-18 10:10] LABS: Ferritin 559.1 ng/ml (8-388); Magnesium 1.3 mg/dl (1.8-2.4)
[2019-01-18] MEDS ORDERED: HEPARIN IV BOLUS 2,000 UNITS in SYRINGE 0 ML IV SCH (10:15)
[2019-01-18] MEDS ORDERED: ONDANSETRON INJ 2 MG/ML 2 ML VIAL IV STA (11:43)
[2019-01-18] MEDS: MAGNESIUM SULFATE / D5W 1 GM/100 ML BAG IV SCH ×3 (12:43→14:59)
--- NOTE | 2019-01-18 12:44 | XRay Report ---
XR KUB/Abdomen 1 view CLINICAL HISTORY: Vomiting COMPARISON STUDY: August 2006 FINDINGS: There are surgical clips within the right upper quadrant consistent with a prior cholecyste ctomy. There is scattered stool within the colon. There are gas filled colonic and small bowel loops. There are no transition zone to indicate bowel obstruction. IMPRESSION: Moderate colonic stool. Mild gaseous prominence of small bowel loops. This could represe nt a mild ileus. No evidence of bowel obstruction on conventional radiographic imaging Electronically signed by: Chris Siegel M.D. 01/18/2019 12:43 PM
--- NOTE | 2019-01-18 12:47 | Emergency Department Note ---
Entered by Morgan Miller acting as a scribe for History of Present Illness General Chief complaint: Chest Pain Stated complaint: MUSCLE SPASMS IN CHEST Time Seen by Provider: 01/17/19 08:48 Source: patient History of Present Illness Provider complaint: Chest pain Onset (ago): day(s) 1 Location: chest Pain Consistency: + intermittent Maximum Pain Intensity: 8 Current Pain Intensity: 8 Exacerbated By: + other (Deep breath) Associated symptoms: + shortness of breath The patient is a 48 year old female who presents to the Emergency Room with complaints of intermittent left sided chest pain that started last night. The patient rates the pain as an 8/10 and notes it is worse with taking a deep breath. The patient is also having muscles spasms and reports that the pain feels musculoskeletal. The patient endorses some shortness of breath when her chest pain is present. The patient has never had symptoms like this before nor does she have a cardiac history. The patient did have a stress test done about 5 years ago which she passed. The patient has a history of bladder cancer with mets to the lymph nodes. Her next scheduled chemotherapy treatment is in 2 days but she notes she will probably reschedule. The patient also has a history of spina bifida, hydrocephalus, and a BKA of the LLE. Home Medications Home Medications Medication Instructions Recorded Confirmed Type zinc 50 mg PO QAM 08/15/18 01/17/19 History albuterol sulfate 90 mcg/actuation 1 inh INHALATION QID PRN #1 ea 09/21/18 01/17/19 Rx breath activated powder inhaler cyanocobalamin (vit B-12) 1,000 1,000 mcg SQ .COMPLEX 09/21/18 01/17/19 History mcg/mL injection solution levothyroxine 75 mcg tablet 75 mcg PO QAM #30 tab 09/21/18 01/17/19 Rx multivitamin chewable tablet 1 tab PO QAM 09/21/18 01/17/19 History oxybutynin chloride 5 mg tablet 5 mg PO BID #60 tab 09/21/18 01/17/19 Rx naproxen 250 mg tablet 250 mg PO Q12H PRN #60 tab 10/20/18 01/17/19 Rx CPAP Machine #1 ea 01/04/19 01/17/19 Rx CPAP Supplies #1 ea 01/04/19 01/17/19 Rx Chemotherapy 1 dose IV UD 01/17/19 01/17/19 History duloxetine 30 mg capsule,delayed 30 mg PO QAM #30 cap 01/17/19 Rx release ergocalciferol (vitamin D2) 50,000 unit PO WE 01/17/19 01/17/19 History [Vitamin D2] famotidine 40 mg PO DAILY PRN 01/17/19 01/17/19 History naproxen 500 mg PO BID 01/17/19 01/17/19 History hydroxyzine HCl 25 mg tablet 25 mg PO TID PRN #30 tab 01/18/19 Rx Allergies Allergy/AdvReac Type Severity Reaction Status Date / Time vancomycin Allergy Severe MATT Verified 01/17/19 10:31 citalopram Allergy Intermediate Hives Verified 01/17/19 10:31 tape AdvReac Mild rash Uncoded 01/17/19 10:31 Past Med/Surg History Medical History Vitamin D deficiency Urinary incontinence Sleep apnea Hiatal hernia 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 Only during allergy seasons. Last use was about 3 weeks ago. Denies h/o hospitalization and intubation due to asthma Anxiety Hypothyroidism Dyslipidemia Neurogenic bladder ST CATH 6X DAILY AND PRN Hydrocephalus (Chronic 05/20/12) s/p PEDIATRIC SURGEON shunt AND REPLACED AT AGE 2 Seasonal allergies REASON FOR INHALER RX (HAS NOT USED FOR A LONG TIME) Surgical History Status post gastric bypass for obesity History of reduction of breast (Resolved 05/20/12) H/O transurethral destruction of bladder lesion TURBT 08/17/18 History of amputation below knee 2/2 osteomylitis History of cystoscopy History of dilatation and curettage UTERINE ABLATION History of esophagogastroduodenoscopy (EGD) History of open reduction and internal fixation (ORIF) procedure LEFT LEG History of surgery MULTIPLE SURGERIES ON LEFT LEG (I&D'S) History of tooth extraction Hx laparoscopic cholecystectomy Hx of bilateral breast reduction surgery S/P panniculectomy Family History Grandmother (Paternal) Diabetes Grandfather (Paternal) Diabetes Coronary heart disease Aunt Diabetes Uncle Diabetes Uncle Diabetes Other No significant family history Social History Preferred Language: [place] Communication Ability: Effective Visual Impairment: No Limitations Hearing Ability: Normal Electronic Train Control Technician Required: No Beliefs That Will Affect Care: None marital status: Current Living Situation: Spouse current occupational status: disabled Other Information That Helps Us Care for You: No Feels Safe at Home: Yes Safety Concerns: Feels Safe At This Time Smoking Status: Former smoker Tobacco Type: cigarettes ; Cigarettes Per Day: 10 CIG IN THE PAST MONTH ; Second Hand Exposure: Yes ; Hx Alcohol Use: Yes Alcohol type: beer Hx Substance Use: No Childhood Exposure to Second-Hand Smoke: Yes caffeine: Yes Dental Care, Regularly: No Physical Activity Frequency: Does not Exercise Seatbelt Use: sometimes Sunscreen Use: Yes Review of Systems See HPI for pertinent positives & negatives. and A total of 10 systems reviewed and were otherwise negative Physical Exam Vital Signs Vital Signs - 24 hr 01/17/19 08:47 01/17/19 08:55 01/17/19 09:35 Temperature 98.4 F Temperature Source Oral Sepsis Recent Fever Within 48 Hours No Sepsis Action Taken by Nursing No Action Required Pulse Rate 102 H Pulse Rate from SpO2 Sensor Pulse Rhythm Pulse Strength Respiratory Rate 20 Respiratory Effort / Characteristics Non-Labored Respiratory Depth Normal Blood Pressure 102/63 Blood Pressure [Left Arm] Blood Pressure Mean 76 Blood Pressure Mean [Left Arm] Blood Pressure Position Pulse Oximetry 98 94 95 Oxygen Delivery Method Room Air Room Air Nasal Cannula Oxygen Flow Rate 2 01/17/19 10:06 01/17/19 11:00 01/17/19 11:01 Temperature Temperature Source Sepsis Recent Fever Within 48 Hours Sepsis Action Taken by Nursing Pulse Rate 69 70 Pulse Rate from SpO2 Sensor 68 72 Pulse Rhythm Pulse Strength Respiratory Rate 18 17 15 Respiratory Effort / Characteristics Respiratory Depth Blood Pressure 113/66 Blood Pressure [Left Arm] 100/56 L Blood Pressure Mean 81 Blood Pressure Mean [Left Arm] 70 Blood Pressure Position Pulse Oximetry 92 96 95 Oxygen Delivery Method Room Air Nasal Cannula Nasal Cannula Oxygen Flow Rate 2 2 01/17/19 11:15 01/17/19 11:16 01/17/19 11:33 Temperature 97.7 F 97.7 F Temperature Source Oral Oral Sepsis Recent Fever Within 48 Hours Sepsis Action Taken by Nursing Pulse Rate 69 70 81 Pulse Rate from SpO2 Sensor 70 69 Pulse Rhythm Regular Regular Pulse Strength Normal Normal Respiratory Rate 16 20 18 Respiratory Effort / Characteristics Respiratory Depth Blood Pressure 108/70 102/56 L Blood Pressure [Left Arm] Blood Pressure Mean 82 71 Blood Pressure Mean [Left Arm] Blood Pressure Position Lying Lying Pulse Oximetry 97 97 97 Oxygen Delivery Method Nasal Cannula Nasal Cannula Oxygen Flow Rate 2 2 2 GENERAL: Awake, alert, pale-appearing, in no distress HENT: Normocephalic, atraumatic. Oropharynx unremarkable. EYES: Normal conjunctiva. Sclera non-icteric. NECK: Supple. No nuchal rigidity. FROM. No masses. RESPIRATORY: Clear to auscultation. No wheezes. No rales. Normal respiratory effort. CARDIAC: Normal rate. Normal rhythm. No murmurs. No rubs. Extremities warm and well perfused. Pulses equal. No JVD. CHEST: Chest pain is not reproducible. GI: Soft, non-distended. No tenderness to palpation. No rebound or guarding. No masses. RECTAL: Deferred. MUSCULOSKELETAL: Atraumatic. Chest examination reveals no tenderness. The back is symmetrical on inspection without obvious abnormality. There is no CVA tenderness to palpation. No joint edema. LOWER EXTREMITIES: LLE BKA noted. No edema. No discoloration. NEURO: Normal sensorium. No sensory or motor deficits noted. Course 0850: Past medical records reviewed. The patient was evaluated in room A03, and a complete history and physical examination were performed. 1049: I reevaluated the patient and she is resting in bed. I updated her on results as well as the treatment plan and she is agreeable. 1056: I spoke to Dr. Yuri Hawthorne [facility] Hospitalist about the patient's case. She is going to accept the patient for further evaluation. Consultations Consultation #1: I spoke to Dr. Yuri Hawthorne [facility] Hospitalist about the patient's case. She is going to accept the patient for further evaluation. Time: 10:56 Administered Medications Acetaminophen (Tylenol) 650 mg PO Q4H PRN PRN Reason: Pain Stop: 02/16/19 13:25 Last Admin: 01/17/19 18:31 Dose: 650 mg Documented by: [id number] Duloxetine HCl (Cymbalta) 30 mg PO QAM [facility] Stop: 02/17/19 08:59 Last Admin: 01/18/19 09:51 Dose: 30 mg Documented by: [id number] Ergocalciferol (Vitamin D2) 50,000 units PO We@0900 [facility] Stop: 02/17/19 08:59 Last Admin: 01/18/19 09:52 Dose: 50,000 units Documented by: [id number] Famotidine (Pepcid) 40 mg PO DAILY [facility] Stop: 02/17/19 08:59 Last Admin: 01/18/19 09:52 Dose: 40 mg Documented by: [id number] Folic Acid (Folvite) 1 mg PO QAM [facility] Stop: 02/17/19 08:59 Last Admin: 01/18/19 09:54 Dose: 1 mg Documented by: [id number] Heparin Sodium/Dextrose (Heparin Sodium/Dextrose) 25,000 units in 500 mls @ 21 mls/hr IV .[id number] JANAY; Protocol Stop: 02/17/19 00:14 Last Titration: 01/18/19 10:45 Dose: 1,050 units/hr, 21 mls/hr Documented by: [id number] Cosigned by: [id number] Titration: 01/18/19 07:46 Dose: 950 units/hr, 19 mls/hr Documented by: [id number] Cosigned by: [id number] Admin: 01/18/19 02:11 Dose: 950 units/hr, 19 mls/hr Documented by: [id number] Cosigned by: [id number] Ceftriaxone Sodium 1,000 mg/ (Dextrose) 50 mls @ 100 mls/hr IV Q24H JANAY; P rotocol Stop: 01/28/19 00:59 Last Infusion: 01/18/19 02:03 Dose: 0 mls/hr Documented by: [id number] Admin: 01/18/19 01:33 Dose: 100 mls/hr Documented by: [id number] Levothyroxine Sodium (Synthroid) 75 mcg PO DAILYBB [facility] Stop: 02/17/19 06:29 Last Admin: 01/18/19 06:06 Dose: 75 mcg Documented by: [id number] Oxybutynin Chloride (Ditropan) 5 mg PO BID [facility] Stop: 02/16/19 20:59 Last Admin: 01/18/19 09:51 Dose: 5 mg Documented by: [id number] Admin: 01/17/19 20:03 Dose: 5 mg Documented by: [id number] Oxycodone HCl (Roxicodone Immediate Rel) 5 mg PO Q4H PRN PRN Reason: Pain Stop: 01/31/19 13:25 Last Admin: 01/17/19 22:28 Dose: 5 mg Documented by: [id number] Admin: 01/17/19 14:05 Dose: 5 mg Documented by: [id number] Zinc Sulfate (Zinc Sulfate) 220 mg PO QAM [facility] Stop: 02/17/19 08:59 Last Admin: 01/18/19 09:52 Dose: 220 mg Documented by: [id number] Discontinued Medications Acetaminophen (Tylenol) 1,000 mg PO NOW STA Stop: 01/17/19 08:55 Last Admin: 01/17/19 09:07 Dose: 1,000 mg Documented by: [id number] Heparin Sodium/Dextrose () 1 ea IV Q15M JANAY; Protocol Stop: 01/18/19 03:00 Last Admin: 01/18/19 01:57 Dose: Not Given Documented by: [id number] Hydromorphone HCl (Dilaudid) 0.5 mg IV Q15M PRN PRN Reason: Pain Stop: 01/31/19 08:53 Last Admin: 01/17/19 10:11 Dose: 0.5 mg Documented by: [id number] Admin: 01/17/19 09:07 Dose: 0.5 mg Documented by: [id number] Sodium Chloride (Nss 1000ml) 500 mls @ 999 mls/hr IV .Q31M ONE Stop: 01/17/19 10:03 Last Infusion: 01/17/19 10:32 Dose: 0 mls/hr Documented by: [id number] Admin: 01/17/19 10:01 Dose: 999 mls/hr Documented by: [id number] Heparin Sodium (Porcine) 2,000 (units/ Syringe) 2 mls @ 10 mls/min IV TODAY@1015 [facility] Stop: 01/18/19 10:16 Last Admin: 01/18/19 10:44 Dose: 10 mls/min Documented by: [id number] Cosigned by: [id number] Ioversol (Optiray 320 125ml) 119 ml IV ONCE PRN PRN Reason: Interaction Checking Stop: 01/21/19 09:33 Last Admin: 01/17/19 09:35 Dose: 119 ml Documented by: [id number] Ondansetron HCl (Zofran) 4 mg IV NOW STA Stop: 01/17/19 08:56 Last Admin: 01/17/19 09:07 Dose: 4 mg Documented by: [id number] Ondansetron HCl (Zofran) 4 mg IV NOW STA Stop: 01/18/19 11:44 Last Admin: 01/18/19 12:38 Dose: 4 mg Documented by: [id number] Oxycodone/Acetaminophen (Percocet 10/325mg) 2 tab PO NOW STA Stop: 01/18/19 04:05 Last Admin: 01/18/19 04:53 Dose: 2 tab Documented by: [id number] Medical Decision Making Differential Diagnosis Differential diagnoses includes but is not limited to acute coronary syndrome, myocardial infarction, pericarditis, pulmonary embolus, aortic dissection, pneumonia, pneumothorax, musculoskeletal, shingles, esophageal. Medical Records Attestation: I reviewed the patient's medical records. Home Medications Current Medication List: was personally reviewed by me Laboratory Data Attestation: I reviewed the patient's lab results. Result diagrams: 01/18/19 04:13 01/18/19 04:13 Lab Results 01/17/19 01/17/19 01/17/19 Range/Units 09:05 09:05 09:05 WBC 11.60 H (4.8-10.8) K/uL RBC 1.98 L (4.2-5.4) M/uL Hgb 6.1 L* (12.0-16.0) g/dL POC Hgb (12.0-16.0) g/dl Hct 20.1 L* (37-47) % POC Hct (37-47) % MCV 101.5 H (80-100) fL MCH 30.8 (25-34) pg MCHC 30.3 L (32-36) g/dL RDW Std Deviation 80.6 H (36.4-46.3) fL RDW Coeff of Jennifer 22.5 H (11.5-14.5) % Plt Count 448 H (130-400) K/uL MPV 8.4 (7.4-10.4) fL Immature Gran % (Auto) 2.0 % Neut % (Auto) 68.4 % Lymph % (Auto) 21.6 % [place] % (Auto) 7.8 % Eos % (Auto) 0.1 % Baso % (Auto) 0.1 % Immature Gran # (Auto) 0.23 H (0.00-0.02) K/uL Neut # (Auto) 7.94 H (1.4-6.5) K/uL Lymph # (Auto) 2.51 (1.2-3.4) K/uL [place] # (Auto) 0.90 H (0.11-0.59) K/uL Eos # (Auto) 0.01 (0-0.5) K/uL Baso # (Auto) 0.01 (0-0.2) K/uL Absolute Nucleated RBC 0.08 H (0-0) K/uL Nucleated RBC % (auto) 0.6 % Anisocytosis Present Target Cells 1+ Schistocytes 1+ PT 11.1 (9.0-12.0) Seconds INR 1.1 (0.9-1.1) APTT 21.3 (21.0-31.0) Seconds PTT Ratio 0.8 POC Sodium (135-144) mEq/L Sodium 136 (136-145) mmol/L POC Potassium (3.3-5.0) mEq/L Potassium 4.1 (3.5-5.1) mmol/L POC Chloride (101-112) mEq/L Chloride 104 (98-107) mmol/L Carbon Dioxide 24 (21-32) mmol/L POC Total CO2 (24-31) mEq/l Anion Gap 8.0 (3-11) POC Anion Gap (16-25) mmol/L POC BUN (7-18) mg/dl BUN 21 H (7-18) mg/dl Creatinine 0.84 (0.6-1.2) mg/dl POC Creatinine (0.6-1.3) mg/dl Est Cr Clr Drug Dosing Not Reportable Est GFR ( Amer) 94.6 Est GFR (Non-Af Amer) 81.6 BUN/Creatinine Ratio 25.2 H (10-20) Glucose 88 (70-99) mg/dl POC Glucose (other) (70-99) mg/dl Calcium 8.7 (8.5-10.1) mg/dl POC Ioniz Calcium Bruna (1.12-1.32) mmol/l Phosphorus (2.5-4.9) mg/dl Magnesium (1.8-2.4) mg/dl Total Bilirubin 1.4 H (0.2-1) mg/dl AST 17 (15-37) U/L ALT 15 (12-78) U/L Alkaline Phosphatase 167 H (45-117) U/L Total Creatine Kinase 32 (26-192) U/L CK-MB (CK-2) < 1.0 (0.5-3.6) ng/ml CK/CKMB % Calc TNP Troponin I < 0.015 (0-0.045) ng/ml Total Protein 6.1 L (6.4-8.2) gm/dl Albumin 2.6 L (3.4-5.0) gm/dl Globulin 3.5 (2.5-4.0) gm/dl Albumin/Globulin Ratio 0.7 L (0.9-2) Lipase 82 (73-393) U/L Blood Type Antibody Screen Crossmatch 01/17/19 01/17/19 01/17/19 Range/Units 09:05 09:11 10:02 WBC (4.8-10.8) K/uL RBC (4.2-5.4) M/uL Hgb (12.0-16.0) g/dL POC Hgb 7.1 L (12.0-16.0) g/dl Hct (37-47) % POC Hct 21 L (37-47) % MCV (80-100) fL MCH (25-34) pg MCHC (32-36) g/dL RDW Std Deviation (36.4-46.3) fL RDW Coeff of Jennifer (11.5-14.5) % Plt Count (130-400) K/uL MPV (7.4-10.4) fL Immature Gran % (Auto) % Neut % (Auto) % Lymph % (Auto) % [place] % (Auto) % Eos % (Auto) % Baso % (Auto) % Immature Gran # (Auto) (0.00-0.02) K/uL Neut # (Auto) (1.4-6.5) K/uL Lymph # (Auto) (1.2-3.4) K/uL [place] # (Auto) (0.11-0.59) K/uL Eos # (Auto) (0-0.5) K/uL Baso # (Auto) (0-0.2) K/uL Absolute Nucleated RBC (0-0) K/uL Nucleated RBC % (auto) % Anisocytosis Target Cells Schistocytes PT (9.0-12.0) Seconds INR (0.9-1.1) APTT (21.0-31.0) Seconds PTT Ratio POC Sodium 135 (135-144) mEq/L Sodium (136-145) mmol/L POC Potassium 4.1 (3.3-5.0) mEq/L Potassium (3.5-5.1) mmol/L POC Chloride 101 (101-112) mEq/L Chloride (98-107) mmol/L Carbon Dioxide (21-32) mmol/L POC Total CO2 24 (24-31) mEq/l Anion Gap (3-11) POC Anion Gap 16.0 (16-25) mmol/L POC BUN 19 H (7-18) mg/dl BUN (7-18) mg/dl Creatinine (0.6-1.2) mg/dl POC Creatinine 0.8 (0.6-1.3) mg/dl Est Cr Clr Drug Dosing Est GFR ( Amer) Est GFR (Non-Af Amer) BUN/Creatinine Ratio (10-20) Glucose (70-99) mg/dl POC Glucose (other) 89 (70-99) mg/dl Calcium (8.5-10.1) mg/dl POC Ioniz Calcium Bruna 1.20 (1.12-1.32) mmol/l Phosphorus 4.5 (2.5-4.9) mg/dl Magnesium 1.3 L (1.8-2.4) mg/dl Total Bilirubin (0.2-1) mg/dl AST (15-37) U/L ALT (12-78) U/L Alkaline Phosphatase (45-117) U/L Total Creatine Kinase (26-192) U/L CK-MB (CK-2) (0.5-3.6) ng/ml CK/CKMB % Calc Troponin I (0-0.045) ng/ml Total Protein (6.4-8.2) gm/dl Albumin (3.4-5.0) gm/dl Globulin (2.5-4.0) gm/dl Albumin/Globulin Ratio (0.9-2) Lipase (73-393) U/L Blood Type O Positive Antibody Screen NEGATIVE Crossmatch See Detail Imaging Data Radiologist's Impression: Radiology results as stated below per my review and the radiologist's interpretation: XR chest 1V portable HISTORY: 48 years-old Female Pt c/o left sided chest pain acute left-sided chest pain COMPARISON: Chest radiograph 09/19/2018 TECHNIQUE: Portable AP view of the chest FINDINGS: Unchanged positioning of the left pectoral Lzdwgn-y-Lyln catheter. Clip projects over the left mediastinum. Cardiac mediastinal and hilar silhouettes are unchanged. There is no pneumothorax, pleural effusion, focal airspace consolidation or overt pulmonary edema. Cholecystectomy. Degenerative changes of the shoulders and spine. IMPRESSION: No acute process. The above report was generated using voice recognition software. It may contain grammatical, syntax or spelling errors. Electronically signed by: Gene Dalton M.D. 01/17/2019 9:[address] ANGIOGRAM OF THE CHEST CLINICAL HISTORY: Atypical chest pain and shortness of breath. Suspected pulmonary wasn't. COMPARISON STUDY: Chest x-ray dated 01/17/2019 TECHNIQUE: Following the IV administration of 119 mL of [id number]-320, CT angiogram of the thorax was performed from the thoracic inlet to the lung bases utilizing the pulmonary embolus protocol. Images are reviewed in the axial, sagittal, and coronal planes. IV contrast was administered without complication. MIP imaging was performed. A dose lowering technique was utilized adhering to the principles of ALARA. CT DOSE: 297.37 mGy.cm FINDINGS: There are enlarged left paratracheal/retroclavicular lymph nodes at the base of the left neck measuring up to 21 mm in diameter. There are enlarged superior mediastinal prevascular nodes measuring up to 19 mm in diameter. There is a left-sided A-Port catheter present. There was no evidence of thoracic aortic dilatation. Evaluation of pulmonary emboli is compromised due to moderate respiratory motion artifact. No central emboli are visualized. There are a few tiny age- indeterminate pulmonary artery filling defects. No pleural effusions are visualized. There is no focal pulmonary consolidation. Evaluation the lung parenchyma is limited due to respiratory motion artifact IMPRESSION: 1. Study compromised due to patient motion artifact 2. There are a few tiny age-indeterminate pulmonary emboli 3. No central emboli identified 4. Enlarged left-sided mediastinal lymph nodes Electronically signed by: Chris Siegel M.D. 01/17/2019 9:53 AM ECG Data Attestation: I personally reviewed and interpreted this ECG as follows: Indication: + chest pain Rate (beats per minute): 108 Rhythm: + sinus tachycardia ECG [place]: + Normal ECG ST segments: no ST depression and no ST elevation ECG Findings: + Other (QTC of 426) Blood Pressure Blood Pressure Findings: Normal blood pressure Blood Pressure Disposition: further management by hospitalist MDM Narrative This is a 48-year-old female who is currently receiving chemotherapy for bladder cancer. Patient reports to the emergency department complaining of left-sided chest pain that she describes as a cramping sensation. On my physical examination I am unable to reproduce the chest pain. Therefore using shared medical decision making this decision was made to send patient for CAT scan of the chest. In addition patient also had laboratory work done which was concerning for pancytopenia. She was typed and crossed for 1 unit of packed red blood cells. In the meanwhile the patient's CAT scan is concerning for multiple PEs. Because of the high risk of this patient including the fact that she is on chemotherapy I did discuss the case with the hospitalist service who agreed to admit the patient. Patient family are in agreement with the treatment plan. Impression & Plan Pulmonary emboli, Bladder cancer, Anemia, Chest pain Critical Care Time I have personally spent greater than 30 minutes of critical care time in the direct management of this patient. This includes bedside care, interpretation of diagnostic studies, and testing, discussion with consultants, patient, and family members, and other required patient management activities. This 30 minutes is in excess of all separately billable procedures. Discharge Plan Visit Data *Final* Discharge Date/Time: 01/17/19 12:44 Chief Complaint: Chest Pain Stated Complaint: MUSCLE SPASMS IN CHEST ED Provider: Silvano Metcalf Discharge Problem: Pulmonary emboli, Bladder cancer, Anemia, Chest pain Patient Disposition: Admitted As Inpatient Discharge Instructions Interventions: ED Discharge Assessment Last Done: 01/17/19 12:44 The scribe's documentation has been prepared under my direction and personally reviewed by me in its entirety. I confirm that the note above accurately reflects all work, treatment, procedures, and medical decision making performed by me.
[2019-01-18] MEDS ORDERED: FOLIC ACID 1 MG in SYRINGE 9.8 ML IV ONE (13:45)
[2019-01-18 17:05] LABS: Basophils # (auto) 0.02 K/uL (0-0.2); Basophils % (auto) 0.2 %; Eosinophils # (auto) 0.04 K/uL (0-0.5); Eosinophils % (auto) 0.3 %; Hematocrit (blood only) 28.1 % (37-47); Hemoglobin 9.2 g/dL (12.0-16.0); Immature Granulocytes # (auto) 0.13 K/uL (0.00-0.02); Lymphocytes # (auto) 1.96 K/uL (1.2-3.4); Lymphocytes % (auto) 14.9 %; Mean Corpuscular Hemoglobin 30.8 pg (25-34); Mean Corpuscular Hgb Conc 32.7 g/dL (32-36); Mean Platelet Volume 8.8 fL (7.4-10.4); Monocytes # (auto) 0.77 K/uL (0.11-0.59); Monocytes % (auto) 5.8 %; Neutrophils # (auto) 10.26 K/uL (1.4-6.5); Neutrophils % (auto) 77.8 %; Platelet Count 304 K/uL (130-400); RDW Coefficient of Variation 20.6 % (11.5-14.5); RDW Standard Deviation 67.4 fL (36.4-46.3); Red Blood Count 2.99 M/uL (4.2-5.4); White Blood Count 13.18 K/uL (4.8-10.8)
--- NOTE | 2019-01-18 17:24 | Hospitalist Progress Note ---
Date of Service January 18, 2019 Assessment & Plan (1) Pulmonary emboli: Patient reported mild dyspnea prior to the hospital stay. She also was having mild chest discomfort over the left breast area for several days. She continues with that pain today. The pain over left chest is reproducible. I do not believe the chest pain is from the pulmonary emboli. See "chest pain" below. The emboli are "tiny" per radiology and age-indeterminate; thus, the clots may be chronic. LE venous dopplers are both negative for DVT. Kyoe-bna-etix, in light of limited ambulation due to spina bifida and BKA status -- along with active bladder cancer -- the emboli must be treated. She is currently on heparin infusion. We are trying to determine with certainty if there is any evidence of GI bleeding given the severe anemia she presented with. Following PRBCs x 2 units her H/H have thus far been stable. Awaiting fecal occult blood. If no active GI bleeding will continue with anticoagulation. Plan to reach out to Dr Alvarado, oncology w/ [facility], to seek out his opinion if she is candidate for DOAC therapy vs lovenox vs other. I would be concerned about coumadin in light of gastric bypass status, ?reliable day-to-day absorption, etc. (2) Vomiting: KUB x-ray obtained today; mild gaseous distension but no obstructive process. Copious stool seen. Obstipation? Treat constipation. Treat nausea. Treat UTI. Diet as tolerated for now. If persistent vomiting then change diet to clears. Cont H2 kamala. (3) Chest pain: Reproducible on exam. Not pleuritic. No worsening of pain with laying supine. Suspect musculoskeletal etiology. Start lidoderm patches. K-pad heat. Obtained repeat EKG today as 01/[address] changes in multiple leads. Repeat EKG is unchanged. Will obtain echo to be complete to r/o wall motion abnormalities, LV dysfunction, pericardial effusion in light of bladder cancer, etc. I don't think chest pain is due to PEs. (4) Folate deficiency: Likely due to poor diet, absorption issues in face of chronic gastric bypass status, etc. Start folic acid 1mg IV daily while here. Receives vitamin B12 shots as outpatient. Ferritin checked today and was 559. (5) Anemia: Hg of 6.1 at time of ER presentation. Was previously 11.1 in 06/2018. Mildly macrocytic. Folate level LOW; supplementation started. Already on B12 shots as outpatient. s/p 2 units PRBCs this admission with stable H/H since. Trend the CBC. Cont folate. Await fecal occult blood to r/o GI blood loss especially in face of chronic nsaid use. Bladder cancer, chemo effects, etc could also be contributing to anemia. (6) Complicated UTI (urinary tract infection): suarez-catheter associated. performs straight cathing several times a day at home. uncertain if vomiting, etc could be from UTI. remains on IV rocephin. culture growing GNR. await final cx result. (7) Neurogenic bladder: Patient with spina bifida, neurogenic bladder. She self caths at home 6-8 times per day. Suarez catheter placed in the ER. d/c prior to discharge home. (8) Hypothyroidism: Continue Synthroid. TSH 06/2018 wnl. (9) Asthma: Chronic. Stable. No exacerbation at this time. (10) Depression: Continue Cymbalta No issues (11) Diabetes mellitus: Resolved after gastric bypass surgery Last HbA1c was 5.1% in 06/2018 (12) Spina bifida of lumbar region: with resulting neurogenic bladder (13) GERD (gastroesophageal reflux disease): Continue Pepcid If vomiting persists then obtain GI consultation (14) Sleep apnea: CPAP HS (15) Bladder cancer: active. follows with [facility] Gale[facility]. Recent chemo in the last couple of weeks. need to involve Dr Alvarado with respect to anticoagulation. (16) Constipation: start senna 2 tabs daily +/- miralax (17) History of amputation below knee: left Subjective during my visit pt c/o nausea. suddenly she reached for an emesis bag and had copious vomiting of what looked like stomach contents from breakfast. no coffee-grounds. no hematemesis. she does have nausea at times at home, but usually no emesis. she has h/o gastric bypass. she confirms she had been taking naprosyn prior to admission for her chest disc omforts and other aches / pains. she continues to have mild left-sided chest wall discomfort - thinks it is muscle. it is NOT worsened with laying flat in bed. it is not worsened with movements of the left arm. had had mild dyspnea prior to this hospital stay - denies such today. c/o constipation. last BM did NOT have melena or tarry appearance however. tele wnl overnight. Review of Systems Constitutional: no fever Respiratory: no cough and no pain on inspiration Cardiovascular: as per Subjective / HPI and + chest pain; no orthopnea, no paroxysmal nocturnal dyspnea and no edema Gastrointestinal: as per Subjective / HPI, + nausea, + vomiting and + constipation; no diarrhea/loose stools Physical Exam Constitutional: + acute distress (vomiting) and + ill appearing frontal bossing noted ENMT: Mouth: + dry oral mucous membranes Respiratory: normal respiratory effort, lungs clear to auscultation Cardiovascular: Rate/Rhythm: regular rate and regular rhythm Heart Sounds: normal S1, normal S2 and + murmur (1/6 systolic LSB) Vessels: posterior tibial pulses present and dorsalis pedis pulses present; no JVD Extremities: no edema Chest (Breasts): Additional Comments: mild reproducible chest wall discomfort to palpation on left side Gastrointestinal (Abdomen): Inspection/Auscultation: + abdomen distended and normal bowel sounds Percussion/Palpation: abdomen nontender and no hepatosplenomegaly Musculoskeletal: right leg deformity; left leg BKA; pulses right foot 2+ Skin: + pallor port left upper chest clean Psychiatric: Orientation: alert and oriented x 3 Results & Data Vital Signs (Past 12 Hours) Vital Signs Temp Pulse Pulse Resp BP Pulse Ox 01/18/19 16:00 72 01/18/19 15:46 36.4 C L 78 16 108/72 94 01/18/19 08:00 77 01/18/19 07:41 37.0 C 68 16 94/60 L 92 Laboratory Results Laboratory Results - last 24 hr 01/18/19 01/18/19 01/18/19 04:13 08:15 16:34 WBC 13.18 H RBC 2.99 L Hgb 9.2 L Hct 28.1 L MCV 94.0 MCH 30.8 MCHC 32.7 RDW Std Deviation 67.4 H RDW Coeff of Jennifer 20.6 H Plt Count 304 MPV 8.8 Immature Gran % (Auto) 1.0 Neut % (Auto) 77.8 Lymph % (Auto) 14.9 [place] % (Auto) 5.8 Eos % (Auto) 0.3 Baso % (Auto) 0.2 Immature Gran # (Auto) 0.13 H Neut # (Auto) 10.26 H Lymph # (Auto) 1.96 [place] # (Auto) 0.77 H Eos # (Auto) 0.04 Baso # (Auto) 0.02 Absolute Nucleated RBC Nucleated RBC % (auto) Polychromasia 1+ Anisocytosis APTT 43.0 H PTT Ratio 1.6 Magnesium 1.3 L Ferritin 559.1 H 01/18/19 01/19/19 01/19/19 16:34 00:35 03:51 WBC 10.88 H RBC 3.00 L Hgb 9.3 L Hct 28.5 L MCV 95.0 MCH 31.0 MCHC 32.6 RDW Std Deviation 68.5 H RDW Coeff of Jennifer 20.4 H Plt Count 280 MPV 9.1 Immature Gran % (Auto) 1.1 Neut % (Auto) 71.6 Lymph % (Auto) 17.2 [place] % (Auto) 8.7 Eos % (Auto) 1.2 Baso % (Auto) 0.2 Immature Gran # (Auto) 0.12 H Neut # (Auto) 7.79 H Lymph # (Auto) 1.87 [place] # (Auto) 0.95 H Eos # (Auto) 0.13 Baso # (Auto) 0.02 Absolute Nucleated RBC 0.04 H Nucleated RBC % (auto) 0.4 Polychromasia 1+ Anisocytosis Present APTT 86.0 H* 70.6 H* PTT Ratio 3.2 2.6 Magnesium Ferritin PG Care Time/CCT Total # of Minutes Spent Total Time Spent with Patient: Total time spent is greater than 50% in coordination of care (as documented) at patient's floor/unit and/or counseling patient: (1) Pulmonary emboli Pulmonary embolism type: unspecified Chronicity: unspecified Acute cor pulmonale presence: unspecified Qualified Code(s): I26.99 - Other pulmonary embolism without acute cor pulmonale (2) Anemia Anemia type: unspecified type Qualified Code(s): D64.9 - Anemia, unspecified (3) Hypothyroidism Hypothyroidism type: unspecified Qualified Code(s): E03.9 - Hypothyroidism, unspecified (4) Asthma Asthma severity: mild Asthma persistence: intermittent Asthma complication type: uncomplicated Qualified Code(s): J45.20 - Mild intermittent asthma, uncomplicated (5) Depression Depression Type: major depressive disorder Major depression recurrence: unspecified whether recurrent Active/Remission status: remission status unspecified Qualified Code(s): F32.9 - Major depressive disorder, single episode, unspecified (6) Diabetes mellitus Diabetes mellitus type: due to underlying condition Diabetes mellitus senior living insulin use: without intermodal truck driver use Diabetes mellitus complication status: without complication Qualified Code(s): E08.9 - Diabetes mellitus due to unde rlying condition without complications (7) Spina bifida of lumbar region Presence of hydrocephalus: with hydrocephalus Qualified Code(s): Q05.2 - Lumbar spina bifida with hydrocephalus (8) GERD (gastroesophageal reflux disease) Esophagitis presence: esophagitis presence not specified Qualified Code(s): K21.9 - Gastro-esophageal reflux disease without esophagitis (9) Sleep apnea Sleep apnea type: unspecified type Qualified Code(s): G47.30 - Sleep apnea, unspecified (10) Chest pain Chest pain type: unspecified Qualified Code(s): R07.9 - Chest pain, unspecified (11) Bladder cancer Bladder location: unspecified site Qualified Code(s): C67.9 - Malignant neoplasm of bladder, unspecified (12) Vomiting Vomiting type: unspecified Vomiting Intractability: unspecified Nausea presence: with nausea Qualified Code(s): R11.2 - Nausea with vomiting, unspecified (13) Constipation Constipation type: other constipation type Qualified Code(s): K59.09 - Other constipation (14) History of amputation below knee Laterality: left Qualified Code(s): Z89.512 - Acquired absence of left leg below knee
[2019-01-18 17:26] LABS: Polychromasia 1+
[2019-01-18] MEDS: LIDOCAINE 5% 1 PATCH TD SCH (17:28)
[2019-01-18 17:32] LABS: Partial Thromboplastin Ratio 3.2
[2019-01-18] MEDS: OXYCODONE HCL IR 5 MG TAB (IMMEDIATE RELEASE) PO PRN (21:17)
[2019-01-19 02:03] LABS: Partial Thromboplastin Ratio 2.6
[2019-01-19 02:05] LABS: Partial Thromboplastin Time 70.6 Seconds (21.0-31.0)
[2019-01-19] MEDS: HEPARIN SODIUM/DEXTROSE 25,000 UNITS/500 ML BAG IV SCH (02:10)
[2019-01-19 04:45] LABS: Basophils # (auto) 0.02 K/uL (0-0.2); Basophils % (auto) 0.2 %; Eosinophils # (auto) 0.13 K/uL (0-0.5); Eosinophils % (auto) 1.2 %; Hematocrit (blood only) 28.5 % (37-47); Hemoglobin 9.3 g/dL (12.0-16.0); Immature Granulocytes # (auto) 0.12 K/uL (0.00-0.02); Immature Granulocytes % (auto) 1.1 %; Lymphocytes # (auto) 1.87 K/uL (1.2-3.4); Lymphocytes % (auto) 17.2 %; Mean Corpuscular Hgb Conc 32.6 g/dL (32-36); Mean Platelet Volume 9.1 fL (7.4-10.4); Monocytes # (auto) 0.95 K/uL (0.11-0.59); Monocytes % (auto) 8.7 %; Neutrophils # (auto) 7.79 K/uL (1.4-6.5); Neutrophils % (auto) 71.6 %; Nucleated RBC # (auto) 0.04 K/uL (0-0); Nucleated RBC % (auto) 0.4 %; Platelet Count 280 K/uL (130-400); RDW Coefficient of Variation 20.4 % (11.5-14.5); RDW Standard Deviation 68.5 fL (36.4-46.3); White Blood Count 10.88 K/uL (4.8-10.8)
[2019-01-19 05:30] LABS: Anisocytosis Present; Polychromasia 1+
[2019-01-19] MEDS: LEVOTHYROXINE SODIUM 75 MCG TABLET PO SCH (06:04)
[2019-01-19] MEDS: OXYCODONE HCL IR 5 MG TAB (IMMEDIATE RELEASE) PO PRN ×2 (06:04→21:20)
[2019-01-19 08:38] LABS: Partial Thromboplastin Ratio 2.2
[2019-01-19 08:40] LABS: Partial Thromboplastin Time 60.8 Seconds (21.0-31.0)
[2019-01-19 08:46] LABS: BUN Creatinine Ratio 20.2 (10-20); Calcium 8.3 mg/dl (8.5-10.1); Creatinine Clr Calc Pharmacy 80.4 ml/min; Est GFR (African American) 121.4; Est GFR (Non-African American) 104.8; Magnesium 1.6 mg/dl (1.8-2.4); Potassium 3.5 mmol/L (3.5-5.1)
[2019-01-19] MEDS: SENNA 8.6 MG TAB PO SCH (09:44)
[2019-01-19] MEDS: DULOXETINE HCL 30 MG CAP PO SCH (09:44)
[2019-01-19] MEDS: FOLIC ACID 1 MG in SYRINGE 9.8 ML IV SCH (09:44)
[2019-01-19] MEDS: OXYBUTYNIN CHLORIDE 5 MG TAB PO SCH ×2 (09:45→21:19)
[2019-01-19] MEDS: LIDOCAINE 5% 1 PATCH TD SCH (09:45)
[2019-01-19] MEDS: FAMOTIDINE 20 MG TAB PO SCH (09:45)
[2019-01-19] MEDS: ZINC SULFATE 220 MG CAPSULE PO SCH (09:45)
--- NOTE | 2019-01-19 11:16 | Hospitalist Progress Note ---
Date of Service January 19, 2019 Assessment & Plan (1) Pulmonary emboli: Continue admit to [facility] on telemetry. Mild chest discomfort is resolved. Patient denies nausea and vomiting. LE venous dopplers are both negative for DVT. Patient has spina bifida and BKA status along with active bladder cancer.Due to current malignancy patient is prone to clot formation. The emboli must be treated.Discuss with Dr. Alvarado/[facility] patient oncologist- he recommended to start full dose of Lovenox. He believes that patient's anemia is related to her recent chemotherapy and bone marrow suppression by it. He agreed with current patient treatment. He recommended to follow-up with him in 1 to 2-week at her scheduled appointment. Continue heparin infusion. No evidence of GI bleeds as so far. Patient did not have bowel movement so fecal occult blood could not be checked. Following PRBCs x 2 units her H/H have thus far been stable. Awaiting fecal occult blood. (2) Vomiting: KUB x-ray obtained today; mild gaseous distension but no obstructive process. Copious stool seen. Obstipation? Continue treating constipation. Continue ceftriaxone 1 g every 24 hours for UTI. Diet as tolerated for now. If persistent vomiting then change diet to clears. Cont H2 kamala. (3) Chest pain: Resolved Continue Lidoderm patches. K-pad heat. Obtained repeat EKG today as 01/[address] changes in multiple leads. Repeat EKG is unchanged. Echocardiogram shows ejection fraction of 60 to 65%. No regional wall motion abnormality noted. The right ventricle is grossly normal size. Right ventricular systolic function is qualitatively normal. There is mild tricuspid regurgitation. There is no pulmonary hypertension. 3 shows normal sinus rhythm with ST segment changes in all leads and inverted T waves. Present in both EKGs that were done before. Possibly due to pericarditis. Plan to repeat EKG. Reports no chest pain at this time. Will consider consulting cardiology. (4) Folate deficiency: Likely due to poor diet, absorption issues in face of chronic gastric bypass status, etc. Continue folic acid 1mg IV daily--> p.o. Receives vitamin B12 shots as outpatient. Ferritin checked today and was 559. (5) Anemia: Hg of 6.1 at time of ER presentation. Was previously 11.1 in 06/2018. Mildly macrocytic. Folate level LOW; supplementation started. Already on B12 shots as outpatient. s/p 2 units PRBCs this admission with stable H/H since. Trend the CBC. Cont folate. Await fecal occult blood to r/o GI blood loss especially in face of chronic nsaid use. Bladder cancer, chemo effects, etc could also be contributing to anemia. (6) Complicated UTI (urinary tract infection): Patient requested Aguilar catheter to be removed. She prefers intermittent catheterization with straight cath. Continue IV ceftriaxone. Urine culture growing E. coli sensitive to ceftriaxone (7) Neurogenic bladder: Patient with spina bifida, neurogenic bladder. She self caths at home 6-8 times per day. Aguilar catheter placed in the ER. d/c prior to discharge home. (8) Hypothyroidism: Continue Synthroid. TSH 06/2018 wnl. (9) Asthma: Chronic. Stable. No exacerbation at this time. (10) Depression: Continue Cymbalta No issues (11) Diabetes mellitus: Resolved after gastric bypass surgery Last HbA1c was 5.1% in 06/2018 (12) Spina bifida of lumbar region: with resulting neurogenic bladder (13) GERD (gastroesophageal reflux disease): Continue Pepcid If vomiting persists then obtain GI consultation (14) Sleep apnea: CPAP HS (15) Bladder cancer: active. follows with Dr Alvarado [facility]. Recent chemo in the last couple of weeks. need to involve Dr Alvarado with respect to anticoagulation. (16) Constipation: start senna 2 tabs daily +/- miralax (17) History of amputation below knee: left Subjective Pt seen and examined at the bedside. No acute event overnight. Patient is afebrile. She tolerates heparin infusion well. Patient reports no hematuria or melena. Patient still did not have bowel movement. She reports that she does not feel comfortable having Aguilar catheter in and she would like that to be removed. Patient denies fever, chills, chest pain, shortness of breath, abdominal pain, frequency, urgency. Patient is status post 2 units of blood. P.o. intake is improving. Review of Systems Review of Systems: All systems reviewed & are unremarkable except as noted in HPI & below Physical Exam Constitutional: WD/WN, vitals as above Patient has left BKA Eyes: PERRL, conjunctivae normal, anicteric sclerae ENMT: external ear and nose normal, oropharynx normal Neck: trachea midline, no thyromegaly Respiratory: normal respiratory effort, lungs clear to auscultation Cardiovascular: Heart Sounds: normal S1, normal S2 and + murmur Palpation: + palpable S3 Gastrointestinal (Abdomen): normal bowel sounds, soft, nontender, no hepatosplenomegaly Musculoskeletal: no cyanosis or clubbing, extremities motor strength 5/5 Spine: + buttock tenderness left BKA Skin: + erythema (lower back erythema) Neurologic: patellar DTR's 2+ bilat, sensation intact Psychiatric: A+Ox3, euthymic affect Lymphatic: no cervical or axillary lymphadenopathy Results & Data Vital Signs (Past 12 Hours) Vital Signs Temp Pulse Pulse Resp BP Pulse Ox 01/19/19 07:15 36 C L 92 H 16 98/67 L 95 01/19/19 04:48 36.9 C 56 L 18 98/56 L 93 01/19/19 01:05 37 C 62 18 99/60 L 93 01/18/19 23:59 74 PG Care Time/CCT Total # of Minutes Spent Total Time Spent with Patient: Total time spent is greater than 50% in coordination of care (as documented) at patient's floor/unit and/or counseling patient: (1) History of amputation below knee Laterality: left Qualified Code(s): Z89.512 - Acquired absence of left leg below knee (2) Sleep apnea Sleep apnea type: unspecified type Qualified Code(s): G47.30 - Sleep apnea, unspecified (3) Diabetes mellitus Diabetes mellitus complication status: without complication Diabetes mellitus termite 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 helper insulin use: without termite 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 helper use Diabetes mellitus type: due to underlying condition Qualified Code(s): E08.9 - Diabetes mellitus due to underlying condition without complications (4) Bladder cancer Bladder location: unspecified site Qualified Code(s): C67.9 - Malignant neoplasm of bladder, unspecified (5) Anemia Anemia type: unspecified type Qualified Code(s): D64.9 - Anemia, unspecified (6) Depression Active/Remission status: remission status unspecified Depression Type: major depressive disorder Major depression recurrence: unspecified whether recurrent Qualified Code(s): F32.9 - Major depressive disorder, single episode, unspecified (7) Hypothyroidism Hypothyroidism type: unspecified Qualified Code(s): E03.9 - Hypothyroidism, unspecified (8) Spina bifida of lumbar region Presence of hydrocephalus: with hydrocephalus Qualified Code(s): Q05.2 - Lumbar spina bifida with hydrocephalus (9) Pulmonary emboli Acute cor pulmonale presence: unspecified Chronicity: unspecified Pulmonary embolism type: unspecified Qualified Code(s): I26.99 - Other pulmonary embolism without acute cor pulmonale (10) GERD (gastroesophageal reflux disease) Esophagitis presence: esophagitis presence not specified Qualified Code(s): K21.9 - Gastro-esophageal reflux disease without esophagitis (11) Chest pain Chest pain type: unspecified Qualified Code(s): R07.9 - Chest pain, unspecified (12) Constipation Constipation type: other constipation type Qualified Code(s): K59.09 - Other constipation (13) Vomiting Nausea presence: with nausea Vomiting Intractability: unspecified Vomiting type: unspecified Qualified Code(s): R11.2 - Nausea with vomiting, unspecified (14) Asthma Asthma complication type: uncomplicated Asthma persistence: intermittent Asthma severity: mild Qualified Code(s): J45.20 - Mild intermittent asthma, uncomplicated
[2019-01-19] MEDS: ENOXAPARIN INJ 60 MG/0.6 ML SYR SQ SCH ×2 (12:58→21:21)
[2019-01-19] MEDS: cefTRIAXone SODIUM 1,000 MG in DEXTROSE 5% 50 ML IV SCH (21:21)
[2019-01-20] MEDS: LEVOTHYROXINE SODIUM 75 MCG TABLET PO SCH (06:11)
[2019-01-20 06:15] LABS: Basophils # (auto) 0.02 K/uL (0-0.2); Basophils % (auto) 0.3 %; Eosinophils # (auto) 0.08 K/uL (0-0.5); Hemoglobin 9.2 g/dL (12.0-16.0); Immature Granulocytes # (auto) 0.06 K/uL (0.00-0.02); Immature Granulocytes % (auto) 0.8 %; Lymphocytes # (auto) 1.49 K/uL (1.2-3.4); Lymphocytes % (auto) 19.1 %; Mean Corpuscular Hemoglobin 30.9 pg (25-34); Mean Corpuscular Hgb Conc 31.7 g/dL (32-36); Mean Corpuscular Volume 97.3 fL (80-100); Mean Platelet Volume 8.8 fL (7.4-10.4); Monocytes # (auto) 0.74 K/uL (0.11-0.59); Monocytes % (auto) 9.5 %; Neutrophils % (auto) 69.3 %; Platelet Count 224 K/uL (130-400); RDW Coefficient of Variation 19.7 % (11.5-14.5); Red Blood Count 2.98 M/uL (4.2-5.4); White Blood Count 7.79 K/uL (4.8-10.8)
[2019-01-20 06:29] LABS: Partial Thromboplastin Ratio 1.2; Partial Thromboplastin Time 31.3 Seconds (21.0-31.0)
[2019-01-20 06:57] LABS: Albumin Level 2.1 gm/dl (3.4-5.0); BUN Creatinine Ratio 24.7 (10-20); Calcium 8.4 mg/dl (8.5-10.1); Potassium 3.8 mmol/L (3.5-5.1)
[2019-01-20 06:59] LABS: Albumin Globulin Ratio 0.7 (0.9-2); Bilirubin,Total 0.8 mg/dl (0.2-1); Globulin 3.2 gm/dl (2.5-4.0); Total Protein 5.3 gm/dl (6.4-8.2)
[2019-01-20] MEDS: ZINC SULFATE 220 MG CAPSULE PO SCH (09:09)
[2019-01-20] MEDS: FOLIC ACID 1 MG in SYRINGE 9.8 ML IV SCH (09:09)
[2019-01-20] MEDS: FAMOTIDINE 20 MG TAB PO SCH (09:09)
[2019-01-20] MEDS: OXYBUTYNIN CHLORIDE 5 MG TAB PO SCH (09:10)
[2019-01-20] MEDS: SENNA 8.6 MG TAB PO SCH (09:10)
[2019-01-20] MEDS: ENOXAPARIN INJ 60 MG/0.6 ML SYR SQ SCH (09:37)
[2019-01-20] MEDS: LIDOCAINE 5% 1 PATCH TD SCH (09:38)
[2019-01-20] MEDS: DULOXETINE HCL 30 MG CAP PO SCH (10:36)
--- NOTE | 2019-01-20 10:43 | Hospitalist Progress Note ---
Date of Service January 20, 2019 Assessment & Plan (1) Pulmonary emboli: Patient insistent to be discharged home. Her is next to the bedside reports of being comfortable giving patient a Lovenox subcutaneous injection advanced twice a day. Patient understand that next week she is a post to follow-up with Dr. Alvarado her oncologist. She will continue cefdinir 300 mg p.o. twice daily for 6 more days to complete therapy of 7 days. Patient denies any shortness of breath. Patient did not have yet bowel movement but says she will have when she goes home. Her H&H is stable since she received 2 units of blood. Per Dr. Alvarado most likely origin of her anemia is recent chemotherapy and poor production of the red blood cells. (2) Vomiting: Resolved (3) Chest pain: Resolved (4) Folate deficiency: Continue folic acid 1 mg p.o. daily (5) Anemia: Stable. Initial H&H of 6.1/20.1 improved to 9.2/29 and remained stable for 48 hours. (6) Complicated UTI (urinary tract infection): And does intermittent catheterization at home which was continued in the hospital. Initially placed Aguilar catheter was removed per patient request. Patient was treated with ceftriaxone for urinary tract infection that grew E. coli sensitive to ceftriaxone. For home patient is continued on cefdinir 300 mg p.o. twice daily for 6 additional days to complete therapy of 7 to 8 days for complicated UTI. (7) Neurogenic bladder: Patient with spina bifida, neurogenic bladder. She self caths at home 6-8 times per day. d/c prior to discharge home. (8) Hypothyroidism: Continue Synthroid. TSH 06/2018 wnl. (9) Asthma: Chronic. Stable. No exacerbation at this time. 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 follows with [facility]. Recent chemo in the last couple of weeks. need to involve Dr Alvarado with respect to anticoagulation. (16) Constipation: start senna 2 tabs daily +/- miralax (17) History of amputation below knee: left Subjective Pt seen and examined at the bedside. No acute event overnight. Patient is afebrile. Patient was switched yesterday from heparin drip to Lovenox full dose anticoagulation for pulmonary embolism and case was discussed with Dr. Alvarado from [facility] her oncologist and he recommended to continue with Lovenox therapeutic dose ongoing malignancy of her urinary bladder. She says she feels much better today. She requested to be discharged home. Her is next to the bedside and he also reports that he came in to take patient home. Patient denies melena hematuria or hematochezia. Patient denies any bruising. Patient denies fever, chills, chest pain, shortness of breath, abdominal pain, frequency, urgency. Patient is status post 2 units of blood. P.o. intake is improving. Review of Systems Review of Systems: All systems reviewed & are unremarkable except as noted in HPI & below Physical Exam Constitutional: WD/WN, vitals as above Eyes: PERRL, conjunctivae normal, anicteric sclerae ENMT: external ear and nose normal, oropharynx normal Neck: trachea midline, no thyromegaly Respiratory: normal respiratory effort, lungs clear to auscultation Cardiovascular: Heart Sounds: normal S1, normal S2 and + murmur Palpation: + palpable S3 Gastrointestinal (Abdomen): normal bowel sounds, soft, nontender, no hepatosplenomegaly Musculoskeletal: no cyanosis or clubbing, extremities motor strength 5/5 Spine: + buttock tenderness Skin: + erythema (lower back erythema) Neurologic: patellar DTR's 2+ bilat, sensation intact Psychiatric: A+Ox3, euthymic affect Lymphatic: no cervical or axillary lymphadenopathy Results & Data Vital Signs (Past 12 Hours) Vital Signs Temp Pulse Pulse Resp BP Pulse Ox 01/20/19 07:15 37 C 97 H 16 101/66 97 01/20/19 07:00 80 01/20/19 03:21 36.6 C 70 18 132/72 96 01/20/19 02:22 65 01/19/19 22:56 66 01/19/19 22:44 36.7 C 96 H 18 103/67 95 PG Care Time/CCT Total # of Minutes Spent Total Time Spent with Patient: Total time spent is greater than 50% in coordination of care (as documented) at patient's floor/unit and/or counseling patient: (1) History of amputation below knee Laterality: left Qualified Code(s): Z89.512 - Acquired absence of left leg below knee (2) Sleep apnea Sleep apnea type: unspecified type Qualified Code(s): G47.30 - Sleep apnea, unspecified (3) Diabetes mellitus Diabetes mellitus complication status: without complication Diabetes mellitus chcf insulin use: without equipment operator intermodal yard use Diabetes mellitus type: due to underlying condition Qualified Code(s): E08.9 - Diabetes mellitus due to underlying condition without complications (4) Bladder cancer Bladder location: unspecified site Qualified Code(s): C67.9 - Malignant neoplasm of bladder, unspecified (5) Anemia Anemia type: unspecified type Qualified Code(s): D64.9 - Anemia, unspecified (6) Depression Active/Remission status: remission status unspecified Depression Type: major depressive disorder Major depression recurrence: unspecified whether recurrent Qualified Code(s): F32.9 - Major depressive disorder, single episode, unspecified (7) Hypothyroidism Hypothyroidism type: unspecified Qualified Code(s): E03.9 - Hypothyroidism, unspecified (8) Spina bifida of lumbar region Presence of hydrocephalus: with hydrocephalus Qualified Code(s): Q05.2 - Lumbar spina bifida with hydrocephalus (9) Pulmonary emboli Acute cor pulmonale presence: unspecified Chronicity: unspecified Pulmonary embolism type: unspecified Qualified Code(s): I26.99 - Other pulmonary embolism without acute cor pulmonale (10) GERD (gastroesophageal reflux disease) Esophagitis presence: esophagitis presence not specified Qualified Code(s): K21.9 - Gastro-esophageal reflux disease without esophagitis (11) Chest pain Chest pain type: unspecified Qualified Code(s): R07.9 - Chest pain, unspecified (12) Constipation Constipation type: other constipation type Qualified Code(s): K59.09 - Other constipation (13) Vomiting Nausea presence: with nausea Vomiting Intractability: unspecified Vomiting type: unspecified Qualified Code(s): R11.2 - Nausea with vomiting, unspecified (14) Asthma Asthma complication type: uncomplicated Asthma persistence: intermittent Asthma severity: mild Qualified Code(s): J45.20 - Mild intermittent asthma, uncomplicated
--- NOTE | 2019-01-20 16:59 | Discharge Summary ---
Date of Service January 20, 2019 Admission HPI Per Admitting Provider Reilly Chen is a 48-year-old female presenting with 1 day of left- sided muscle spasm in the chest stabbing in nature, severe. Also with shortness of breath and nonproductive cough. History of bladder cancer presently on chemotherapy. She follows with Dr. Alvarado. Recently had some sort of staging performed and was told that her cancer has progressed. She is being seen at [place] now.. Last chemotherapy was 2 weeks ago. She is due to have her next treatment this ER course: Tylenol, Dilaudid, Zofran, normal saline Principal Diagnosis none Discharge Exam Constitutional WD/WN, vitals as above Eyes PERRL, conjunctivae normal, anicteric sclerae ENMT external ear and nose normal, oropharynx normal Neck trachea midline, no thyromegaly Respiratory normal respiratory effort, lungs clear to auscultation Cardiovascular Heart Sounds: normal S1, normal S2 and + murmur Palpation: + palpable S3 Gastrointestinal (Abdomen) normal bowel sounds, soft, nontender, no hepatosplenomegaly Musculoskeletal no cyanosis or clubbing, extremities motor strength 5/5 Spine: + buttock tenderness Skin + erythema (lower back erythema) Neurologic patellar DTR's 2+ bilat, sensation intact Psychiatric A+Ox3, euthymic affect Lymphatic no cervical or axillary lymphadenopathy Discharge Data Allergies Allergy/AdvReac Type Severity Reaction Status Date / Time vancomycin Allergy Severe MATT Verified 01/17/19 10:31 citalopram Allergy Intermediate Hives Verified 01/17/19 10:31 adhesive tape AdvReac Mild Rash Verified 01/19/19 12:08 Consultations 01/17/19 10:25 ED Decision to Admit Stat Ordered Studies 01/17/19 08:56 CT angio chest PE protocol Stat 01/17/19 13:26 US venous doppler LE BI Routine Hospital Course (1) Pulmonary emboli: Patient insistent to be discharged home. Her is next to the bedside reports of being comfortable giving patient a Lovenox subcutaneous injection advanced twice a day. Patient understand that next week she is a post to follow-up with Dr. Alvarado her oncologist. She will continue cefdinir 300 mg p.o. twice daily for 6 more days to complete therapy of 7 days. Patient denies any shortness of breath. Patient did not have yet bowel movement but says she will have when she goes home. Her H&H is stable since she received 2 units of blood. Per Dr. Alvarado most likely origin of her anemia is recent chemotherapy and poor production of the red blood cells. (2) Vomiting: Resolved (3) Chest pain: Resolved (4) Folate deficiency: Continue folic acid 1 mg p.o. daily (5) Anemia: Stable. Initial H&H of 6.1/20.1 improved to 9.2/29 and remained stable for 48 hours. (6) Complicated UTI (urinary tract infection): And does intermittent catheterization at home which was continued in the hospital. Initially placed Aguilar catheter was removed per patient request. Patient was treated with ceftriaxone for urinary tract infection that grew E. coli sensitive to ceftriaxone. For home patient is continued on cefdinir 300 mg p.o. twice daily for 6 additional days to complete therapy of 7 to 8 days for complicated UTI. (7) Neurogenic bladder: Patient with spina bifida, neurogenic bladder. She self caths at home 6-8 times per day. d/c prior to discharge home. (8) Hypothyroidism: Continue Synthroid. TSH 06/2018 wnl. (9) Asthma: Chronic. Stable. No exacerbation at this time. 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 [facility]. Recent chemo in the last couple of weeks. need to involve Dr Alvarado with respect to anticoagulation. (16) Constipation: start senna 2 tabs daily +/- miralax (17) History of amputation below knee: left Total Time Total Time Spent Total Time Spent (In Minutes): over 30 min Discharge Plan Discharge Items Patient Disposition: Home - Self-Care Reason For Visit: PE SYMPTOMATIC ANEMIA Discharge Diagnosis: Pulmonary embolism, symptomatic anemia, urinary bladder cancer Condition on Discharge: Good Activity: As commented below Lifting: Gradually increase as tolerated Non-emergency contact: Primary Care Provider and Oncologist Call non-emergency contact if: you have any medication questions, your symptoms worsen, your pain is not controlled, your pain is worsening, your pain is unusual for you, your pain is concerning for you, you have a fever, your temperature is above 101, your temperature is above 101.5 and your wound has i ncreased redness Follow-up/Referrals: Flor Salinas, [Primary Care Provider] - 01/25/19 10:15 am (Please, follow up at Dr. Salinas's office with her associate, Steff Bella PA-C, on WednesdayJanuary 25 at 10:15 am. *If you need to change this appointment, call the office at [phone].) Renzo Alvarado MD [Surgeon] - (Please, follow up with Dr. Renzo Alvarado. *A nurse from his office will call you with the appointment information. If you have any questions, call the office at [phone].) Diet: Regular Diet Texture: Dental soft (bite-sized) Addtl Attending Provider Instructions: Follow up with Dr. Alvarado, your oncologist in 1 week. Follow up with PCP in 7 days. Check CBC , PTT -labs at that visit with your PCP. You will need to inject Lovenox 60 mg SubQ Q12 hr for pulmonary embolism.You can nut picker this medication in your pharmacy. You cannot skip the dose. If you skip the dose, contact immediately your PCP. You will be continuing antibiotic for urinary tract infection for 6 more days. Cefdinir 300 mg BID PO. Pending Studies at Discharge: No Stand-Alone Forms: Call Back Authorization, My [facility], Smoking Cessation Medications and DC Order Prescriptions: New sennosides [Senokot] 8.6 mg Tablet 17.2 mg PO QAM PRN (Reason: constipation) Qty: 30 RF: 0 folic acid 1 mg Tablet 1 mg PO QAM Qty: 30 RF: 1 enoxaparin 60 mg/0.6 mL Syringe 60 mg subcut Q12H Qty: 100 RF: 1 cefdinir 300 mg capsule 300 mg PO BID 6 Days Qty: 12 RF: 0 Marya-Sequels (iron-vit c) 200 mg (65 mg iron)-25 mg tablet extended release 1 tab PO DAILY Qty: 30 RF: 1 Continued CPAP Machine Misc .ROUTE .MEDSUPPLY Qty: 1 RF: 0 CPAP Supplies Misc .ROUTE .MEDSUPPLY Qty: 1 RF: 0 hydroxyzine HCl 25 mg tablet 25 mg PO TID PRN (Reason: itching) Qty: 30 RF: 1 duloxetine [Cymbalta] 30 mg capsule,delayed release(DR/EC) 30 mg PO QAM Qty: 30 RF: 5 naproxen 250 mg tablet 250 mg PO Q12H PRN (Reason: Pain) Qty: 60 RF: 1 cyanocobalamin (vitamin B-12) 1,000 mcg/mL solution 1,000 mcg SQ .COMPLEX RF: 0 multivitamin tablet,chewable 1 tab PO QAM RF: 0 albuterol sulfate 90 mcg/actuation aerosol powdr breath activated 1 inh INHALATION QID PRN (Reason: SHORT OF BREATH) Qty: 1 RF: 0 levothyroxine 75 mcg tablet 75 mcg PO QAM Qty: 30 RF: 0 oxybutynin chloride 5 mg tablet 5 mg PO BID Qty: 60 RF: 0 zinc 50 mg Tablet 50 mg PO QAM RF: 0 famotidine 40 mg tablet 40 mg PO DAILY PRN (Reason: gerd) RF: 0 ergocalciferol (vitamin D2) [Vitamin D2] 50,000 unit capsule 50,000 unit PO WE RF: 0 Chemotherapy 1 dose IV UD RF: 0 Discharge Orders: Discharge Order (Routine); Ordered 01/20/19 Ordered By: Jacobo Summers Admission Data Admit Date/Time: 01/17/19 11:29 Attending Provider: Jacobo Summers Admit Provider: Jillian Welch Primary Care Provider: Flor Salinas. Other Providers: Jillian Welch ; Christian Sanabria Other Interventions: Discharge Summary Assessment (RN) Last Done: 01/20/19 14:36 DC Date/Time DO NOT enter until pt leaves facility: 01/20/19 15:42
--- NOTE | 2019-01-24 08:40 | Coding Query ---
CODING QUERY To promote full compliance with coding requirements relating to patient care, provider participation is requested in all cases of coal pulverizing operator uncertainty. Please assist us with the question(s) below: Coding Question: Please clarify if the patient's UTI was a complication (due to self-catheterizations), as it was mentioned in the 01/18 PN but not on discharge summary. Thank you for your help! (x ) UTI due to catheterization, POA ( ) UTI not due to catheterization (UTI unspecified), POA ( ) Other, explain Thank you! Modesta Ceja Principal Diagnosis: "that condition established after study, to be chiefly responsible for occasioning the admission of the patient to the hospital for care." Co-Existing Principal Diagnosis: "when two or more diagnoses equally meet the criteria for principal diagnosis as determined by the circumstances of admission, diagnostic work up, and/or therapy provided, and the Alphabetic Index, Tabular List, or another coding guideline does not provide sequencing direction, any one of the diagnoses may be sequenced first." "When the physician has documented what appears to be a current diagnosis in the body of the record, but has not included the diagnosis in the final diagnostic statement, the physician should be asked whether the diagnosis should be added." (Source Coding [facility] 2 QTR90. p3-4) JANELLE
== END 2019-01-20 15:42 | disposition home or self-care (01) | DRG 176 ==
LOC: ED 08:42 → SUATTDRO 11:29 → 2W 11:29

== ENCOUNTER 2019-02-06 18:26 | Inpatient (IN) ==
[2019-02-06] MEDS ORDERED: DAPTOmycin 225 MG in SYRINGE 0 ML IV STA (18:47)
[2019-02-06] MEDS ORDERED: SODIUM CHLORIDE 0.9% 1000ML 500 ML IV ONE (18:49)
[2019-02-06 20:11] LABS: Basophils # (auto) 0.02 K/uL (0-0.2); Basophils % (auto) 0.3 %; Eosinophils # (auto) 0.16 K/uL (0-0.5); Hematocrit (blood only) 31.6 % (37-47); Immature Granulocytes # (auto) 0.03 K/uL (0.00-0.02); Immature Granulocytes % (auto) 0.4 %; Lymphocytes # (auto) 0.86 K/uL (1.2-3.4); Mean Corpuscular Hemoglobin 30.5 pg (25-34); Mean Corpuscular Hgb Conc 31.6 g/dL (32-36); Mean Corpuscular Volume 96.3 fL (80-100); Mean Platelet Volume 9.6 fL (7.4-10.4); Monocytes # (auto) 0.48 K/uL (0.11-0.59); Monocytes % (auto) 6.1 %; Neutrophils # (auto) 6.29 K/uL (1.4-6.5); Neutrophils % (auto) 80.2 %; Platelet Count 233 K/uL (130-400); RDW Coefficient of Variation 14.2 % (11.5-14.5); RDW Standard Deviation 50.5 fL (36.4-46.3); Red Blood Count 3.28 M/uL (4.2-5.4); White Blood Count 7.84 K/uL (4.8-10.8)
[2019-02-06] MEDS ORDERED: IOVERSOL 100ml IV PRN (20:13)
[2019-02-06 20:22] LABS: INR 1.3 (0.9-1.1); Partial Thromboplastin Ratio 1.2; Partial Thromboplastin Time 32.3 Seconds (21.0-31.0); Prothrombin Time 12.8 Seconds (9.0-12.0)
--- NOTE | 2019-02-06 20:24 | Emergency Department Note ---
Entered by Gertrudis Godinez acting as a scribe for History of Present Illness General Chief complaint: Abnormal Labs/Diagnostic Testing Stated complaint: DR CALLED DUE TO LABS Source: patient History of Present Illness Onset (ago): day(s) (today) Location: back Pain Consistency: + other (episode) Maximum Pain Intensity: 10 Quality: + other (abnormal labs) Associated symptoms: + denies other symptoms (urinary symptoms) and + other (right sided back pain) The patient is a 48 year old female who presents to the Emergency Room with complaints of an episode of abnormal labs starring today. The patient states that she has had right sided upper back pain for the last 3 weeks as well as right sided lower back pain. She notes that she was recently treated for UTI and she notes her urinary burning has resolved as well as the back pain that she had with it. She states that she is being treated for PEs and is still taking Lovenox, but came in recently for it. She notes that she doesnt have any urinary symptoms, but does straight cath herself. She states that when she came in, they did a urine culture that grew out a strep species that is concerning for enterococcus that they are concerned for high resistance as she has had that in the past. She states that she was called back to the ED today for admission. I did see this patient yesterday and we called her back to the ER due to a urine culture as it likely cannot be treated as an outpatient with her having back pain there would be concerned that this is including the upper tract which is not amenable to oral medications at this time. Home Medications Home Medications Medication Instructions Recorded Confirmed Type zinc 50 mg PO QAM 08/15/18 02/05/19 History albuterol sulfate 90 mcg/actuation 1 inh INHALATION QID PRN #1 ea 09/21/18 02/05/19 Rx breath activated powder inhaler cyanocobalamin (vitamin B-12) 1,000 mcg SQ .COMPLEX 09/21/18 02/05/19 History 1,000 mcg/mL injection solution levothyroxine 75 mcg tablet 75 mcg PO QAM #30 tab 09/21/18 02/05/19 Rx multivitamin 1 tab PO QAM 09/21/18 02/05/19 History oxybutynin chloride 5 mg tablet 5 mg PO BID #60 tab 09/21/18 02/05/19 Rx CPAP Machine #1 ea 01/04/19 01/26/19 Rx miscellaneous medical supply #1 ea 01/04/19 01/26/19 Rx ergocalciferol (vitamin D2) 50,000 unit PO WE 01/17/19 02/05/19 History [Vitamin D2] famotidine 40 mg PO DAILY PRN 01/17/19 02/05/19 History duloxetine 30 mg capsule,delayed 30 mg PO QAM #30 cap 01/18/19 02/05/19 Rx release hydroxyzine HCl 25 mg tablet 25 mg PO TID PRN #30 tab 01/18/19 02/05/19 Rx naproxen 250 mg tablet 250 mg PO Q12H PRN #60 tab 01/19/19 02/05/19 Rx enoxaparin 60 mg SUBCUT Q12H #100 ml 01/20/19 02/05/19 Rx folic acid 1 mg PO QAM #30 tab 01/20/19 02/05/19 Rx sennosides [Senokot] 17.2 mg PO QAM PRN #30 tab 01/20/19 02/05/19 Rx baclofen 5 mg tablet 5 mg PO BID PRN 3 Days #6 tab 01/24/19 02/05/19 Rx magnesium oxide 400 mg (241.3 mg 400 mg PO BID tab 01/24/19 02/05/19 History magnesium) tablet ondansetron HCl 8 mg tablet 8 mg PO Q8H PRN tab 01/24/19 02/05/19 History phenazopyridine 200 mg tablet 200 mg PO TID PRN tab 01/24/19 02/05/19 History prochlorperazine maleate 10 mg 10 mg PO QAM tab 01/24/19 02/05/19 History tablet venlafaxine 37.5 mg 37.5 mg PO HS cap 01/24/19 02/05/19 History capsule,extended release 24 hr oxycodone 5 mg tablet 5 mg PO Q6H PRN #20 tab 02/02/19 02/05/19 Rx ferrous fumarate-vitamin C 1 tab PO QAM 02/05/19 02/05/19 History [Marya-Sequels (iron-vit c)] pembrolizumab [Keytruda] 0 mg IV UD 11/24/19 11/24/19 History sulfamethoxazole-trimethoprim 160 mg PO Q12H #20 tab 02/05/19 Rx [Bactrim DS] Allergies Allergy/AdvReac Type Severity Reaction Status Date / Time vancomycin Allergy Severe MATT Verified 02/05/19 15:08 citalopram Allergy Intermediate Hives Verified 02/05/19 15:08 adhesive tape AdvReac Mild Rash Verified 02/05/19 15:08 Past Med/Surg History Medical History Anxiety Asthma Rarely use inhaler. Only during allergy seasons. Last use was about 3 weeks ago. 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 from traumatic injury Hydrocephalus (Chronic 05/20/12) s/p CLEANING CUSTODIAN shunt AND REPLACED AT AGE 2 Hypothyroidism Migraine HX OF Neurogenic bladder ST CATH 6X DAILY AND PRN Osteoarthritis Progressive lipodystrophy Seasonal allergies REASON FOR INHALER RX (HAS NOT USED FOR A LONG TIME) Sleep apnea Spina bifida of lumbar region Urinary incontinence Vitamin D deficiency Surgical History H/O transurethral destruction of bladder lesion TURBT 08/17/18 History of amputation below knee 2/2 osteomylitis History of cystoscopy History of dilatation and curettage UTERINE ABLATION History of esophagogastroduodenoscopy (EGD) History of open reduction and internal fixation (ORIF) procedure LEFT LEG History of reduction of breast (Resolved 05/20/12) History of surgery MULTIPLE SURGERIES ON LEFT LEG (I&D'S) History of tooth extraction Hx laparoscopic cholecystectomy Hx of bilateral breast reduction surgery S/P panniculectomy Status post gastric bypass for obesity Family History Grandmother (Paternal) Diabetes Grandfather (Paternal) Diabetes Coronary heart disease Aunt Diabetes Uncle Diabetes Uncle Diabetes Other No significant family history Social History Preferred Language: Croatian Communication Ability: Effective Visual Impairment: No Limitations Hearing Ability: Normal [employer]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 and A total of 10 systems reviewed and were otherwise negative Physical Exam Vital Signs Vital Signs - 24 hr 02/06/19 18:32 Temperature 37.1 C Temperature Source Oral Pulse Rate 78 Respiratory Rate 20 Respiratory Effort / Characteristics Non-Labored Respiratory Depth Normal Blood Pressure 92/62 L Blood Pressure Mean 72 Pulse Oximetry 93 Oxygen Delivery Method Room Air Sepsis Recent Fever Within 48 Hours No Sepsis Action Taken by Nursing No Action Required GENERAL: sitting up in bed, chronically ill appearing, disheveled EYE EXAM: normal conjunctiva OROPHARYNX: no exudate, no erythema, lips, buccal mucosa, and tongue normal and mucous membranes are moist NECK: supple, no nuchal rigidity, no adenopathy, non-tender LUNGS: Clear to auscultation. Normal chest wall mechanics HEART: no murmurs, S1 normal and S2 normal CHEST: port located in left chest wall ABDOMEN: abdomen soft, non-tender, normo-active bowel sounds, no masses, no rebo und or guarding. BACK: Back is symmetrical on inspection and there is no deformity, no midline tendernes pain tracking from the right medial scapula up to the right humerus. Pain is significantly worse with palpation.. Right lower lumbar paraspinal is tender to palpation. UPPER EXTREMITIES: upper extremities are grossly normal. LOWER EXTREMITIES: No pitting edema. Left BKA. NEURO EXAM: Normal sensorium, cranial nerves II-XII grossly intact, normal speech. Course Course ED COURSE: Vital signs were reviewed and showed hypotension. The patients medical record was reviewed The above diagnostic studies were performed and reviewed. ED treatments and interventions as stated above. 1838: The patient was evaluated in room D1B. A complete history and physical examination was performed. 193: Upon reevaluation, the patient is resting comfortably. I discussed my findings with the patient and she understands and agrees with the treatment plan. Based on the patients age, coexisting illnesses, exam and lab findings the decision to treat as an inpatient was made. The patient remained stable while under my care. The patient will be evaluated for further management. 1944: I discussed the patient's case with Dr. Walker- [facility] [place] He will evaluate the patient for further management. Administered Medications Ioversol (Optiray 320 100ml) 93 ml IV ONCE PRN PRN Reason: Interaction Checking Stop: 02/10/19 20:12 Last Admin: 02/06/19 20:14 Dose: 93 ml Documented by: [id number] Discontinued Medications Daptomycin 225 mg/ Syringe 4.5 mls @ 5 mls/min IV NOW STA; Protocol Stop: 02/06/19 18:48 Last Admin: 02/06/19 20:01 Dose: 5 mls/min Documented by: [id number] Sodium Chloride (Nss 1000ml) 500 mls @ 999 mls/hr IV .Q31M ONE Stop: 02/06/19 19:19 Last Infusion: 02/06/19 20:30 Dose: 0 mls/hr Documented by: [id number] Admin: 02/06/19 20:01 Dose: 999 mls/hr Documented by: [id number] Medical Decision Making Differential Diagnosis Differential diagnosis includes etiologies such as sepsis, UTI, pneumonia, metabolic, electrolyte abnormalities, cardiac sources, intracerebral event, toxicologic, neurologic, as well as others were entertained. Medical Records Attestation: I reviewed the patient's medical records. Home Medications Current Medication List: was personally reviewed by me Laboratory Data Attestation: I reviewed the patient's lab results. Result diagrams: 02/06/19 19:45 02/06/19 19:45 Lab Results 02/06/19 02/06/19 02/06/19 Range/Units 19:45 19:45 19:45 WBC 7.84 (4.8-10.8) K/uL RBC 3.28 L (4.2-5.4) M/uL Hgb 10.0 L (12.0-16.0) g/dL Hct 31.6 L (37-47) % MCV 96.3 (80-100) fL MCH 30.5 (25-34) pg MCHC 31.6 L (32-36) g/dL RDW Std Deviation 50.5 H (36.4-46.3) fL RDW Coeff of Jennifer 14.2 (11.5-14.5) % Plt Count 233 (130-400) K/uL MPV 9.6 (7.4-10.4) fL Immature Gran % (Auto) 0.4 % Neut % (Auto) 80.2 % Lymph % (Auto) 11.0 % [place] % (Auto) 6.1 % Eos % (Auto) 2.0 % Baso % (Auto) 0.3 % Immature Gran # (Auto) 0.03 H (0.00-0.02) K/uL Neut # (Auto) 6.29 (1.4-6.5) K/uL Lymph # (Auto) 0.86 L (1.2-3.4) K/uL [place] # (Auto) 0.48 (0.11-0.59) K/uL Eos # (Auto) 0.16 (0-0.5) K/uL Baso # (Auto) 0.02 (0-0.2) K/uL PT 12.8 H (9.0-12.0) Seconds INR 1.3 H (0.9-1.1) APTT 32.3 H (21.0-31.0) Seconds PTT Ratio 1.2 Sodium 139 (136-145) mmol/L Potassium 4.1 D (3.5-5.1) mmol/L Chloride 105 (98-107) mmol/L Carbon Dioxide 28 (21-32) mmol/L Anion Gap 6.0 (3-11) BUN 18 (7-18) mg/dl Creatinine 0.74 (0.6-1.2) mg/dl Est Cr Clr Drug Dosing Not Reportable Est GFR ( Amer) 110.3 Est GFR (Non-Af Amer) 95.1 BUN/Creatinine Ratio 24.6 H (10-20) Glucose 95 (70-99) mg/dl Lactate (0.4-2.0) mmol/L Calcium 9.1 (8.5-10.1) mg/dl Total Bilirubin 0.5 (0.2-1) mg/dl AST 24 (15-37) U/L ALT 16 (12-78) U/L Alkaline Phosphatase 154 H (45-117) U/L Total Protein 6.2 L (6.4-8.2) gm/dl Albumin 2.0 L (3.4-5.0) gm/dl Globulin 4.2 H (2.5-4.0) gm/dl Albumin/Globulin Ratio 0.5 L (0.9-2) 02/06/19 Range/Units 19:52 WBC (4.8-10.8) K/uL RBC (4.2-5.4) M/uL Hgb (12.0-16.0) g/dL Hct (37-47) % MCV (80-100) fL MCH (25-34) pg MCHC (32-36) g/dL RDW Std Deviation (36.4-46.3) fL RDW Coeff of Jennifer (11.5-14.5) % Plt Count (130-400) K/uL MPV (7.4-10.4) fL Immature Gran % (Auto) % Neut % (Auto) % Lymph % (Auto) % [place] % (Auto) % Eos % (Auto) % Baso % (Auto) % Immature Gran # (Auto) (0.00-0.02) K/uL Neut # (Auto) (1.4-6.5) K/uL Lymph # (Auto) (1.2-3.4) K/uL [place] # (Auto) (0.11-0.59) K/uL Eos # (Auto) (0-0.5) K/uL Baso # (Auto) (0-0.2) K/uL PT (9.0-12.0) Seconds INR (0.9-1.1) APTT (21.0-31.0) Seconds PTT Ratio Sodium (136-145) mmol/L Potassium (3.5-5.1) mmol/L Chloride (98-107) mmol/L Carbon Dioxide (21-32) mmol/L Anion Gap (3-11) BUN (7-18) mg/dl Creatinine (0.6-1.2) mg/dl Est Cr Clr Drug Dosing Est GFR ( Amer) Est GFR (Non-Af Amer) BUN/Creatinine Ratio (10-20) Glucose (70-99) mg/dl Lactate 1.4 (0.4-2.0) mmol/L Calcium (8.5-10.1) mg/dl Total Bilirubin (0.2-1) mg/dl AST (15-37) U/L ALT (12-78) U/L Alkaline Phosphatase (45-117) U/L Total Protein (6.4-8.2) gm/dl Albumin (3.4-5.0) gm/dl Globulin (2.5-4.0) gm/dl Albumin/Globulin Ratio (0.9-2) Imaging Data Radiologist's Impression: Radiology results as stated below per my review and the radiologist's interpretation: [place], [place] [phone] CT Scan Report Patient: ELENA EARLY Admit Date: 02/06/19 MR#: [id number] [place] [address] [facility] [place] [facility] [place]ct ID:[id number] Address2: Date: 1970 [facility] Zip: [place] [address] Age: 48 Location: ED Sex: F Room/Bed: Att Phy: Diagnosis: DR CALLED DUE TO LABS Breann Phy: Flor Salinas DO Service Date: 02/06/19 Fam Phy: Interpreting Phy: Madi Curtis MD Admit Phy: Ordering Phy: Semaj Sy DO cc: ~ CT SCAN OF THE ABDOMEN AND PELVIS WITH IV CONTRAST CLINICAL HISTORY: Right flank pain. COMPARISON STUDY: Abdominal CT dated 01/25/2008. TECHNIQUE: Following the IV administration of 93 cc of Optiray 320, CT scan of the abdomen and pelvis is performed from the lung bases to the proximal femora. Images are reviewed in the axial, sagittal, and coronal planes. IV contrast was administered without complication. A dose lowering technique was utilized adhering to the principles of ALARA. The examination is degraded by streak artifact from the arms which could not be elevated above the abdomen. CT DOSE: 711.23 mGy.cm FINDINGS: Lung bases: The heart is normal in size noting trace pericardial effusion. There are small pleural effusions with dependent consolidation. A centrally necrotic subcarinal node is partially visualized and measures up to 2.1 cm in short axis. Liver: The contrast-enhanced liver is normal in size, contour, and attenuation. There is no intrahepatic biliary ductal dilatation. The hepatic veins and portal veins are patent. There are 3 hypervascular liver lesions. There is a 2.6 cm enhancing lesion in the left lobe seen on image #70. A 1.4 cm enhancing lesion in the left lobe as seen on image #83, and a 1.2 cm enhancing lesion in the right lobe as seen on image #63. The largest left lobe lesion has been present dating back to 2007 and may represent a hemangioma. Gallbladder: Surgically absent noting clips in the gallbladder fossa. Spleen: Normal in size and attenuation. Pancreas: Mild atrophic and grossly unremarkable. Adrenal glands: Unremarkable. Kidneys: The contrast enhanced kidneys are normal in size and without hydronephrosis. Both kidneys demonstrate heterogeneous enhancement. Foci of cortical scarring are noted in the left kidney. Abdominal vasculature: The abdominal aorta is normal in course and caliber. Stomach and bowel: Postoperative changes consistent with a history of Tania-en-Y gastric bypass surgery. The small bowel and colon are normal in course and caliber. The appendix is well-visualized and normal. Peritoneum: There is no intraperitoneal free air or abdominal ascites. There is a fat-containing supraumbilical hernia. Lymphadenopathy: There is centrally necrotic retroperitoneal, pelvic sidewall, and iliac chain lymphadenopathy. An aortocaval node on image #176 measures 2.7 x 1.9 cm. A node in the region of the left inguinal canal on image #360 measures 2.8 x 2.3 cm. A centrally necrotic left inguinal node on image #357 measures 1.2 cm. Pelvic viscera: The bladder wall is markedly thickened, heterogeneous, and hyperemic. Bladder diverticula are noted. There are several enhancing uterine masses. There may be an enhancing lesion involving the left ovary. This is not well delineated. Skeletal structures: The skeletal structures are osteopenic. There is chronic deformity of the bony pelvis. 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 This measures up to 5.7 cm in length. The re are mild superior endplate compression deformities of T8 and T10. 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 Several lesions are identified throughout the ribs, the lumbar spine, and in the pelvis. There is a lesion within the body of L3 which causes a minimal compression deformity, with loss of the posterior cortex. There is posterior epidural extension of tumor at L3 seen on image #206. This causes at least moderate acquired compromise of the central canal. There is a pathologic fracture of the anterior left fourth rib. A lesion in the anterior right iliac wing as seen on image #304. Soft tissues: There is infiltration of the perianal soft tissues with an apparent cutaneous defect. There is also infiltration of the soft tissues inferomedial soft tissues. No organized fluid collection is identified. IMPRESSION: 1. There is spinal dysraphism, a large meningocele, and chronic deformity of the bony pelvis. 2. The bladder wall is markedly thickened and hyperemic. There are several bladder diverticula. This likely represents a neurogenic bladder. Correlate cli nically and with urinalysis for evidence of cystitis. 3. The kidneys enhance heterogeneously. Correlate clinically and with urinalysis for evidence of ascending urinary tract infection/pyelonephritis. 4. 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 Correlation with the patient's oncological history will be required. 5. There is a pathologic fracture of the left anterior fourth rib. 6. There is a large lesion in the posterior aspect of the L3 vertebral with a mild compression deformity at this level. There is breakthrough of the posterior cortex and epidural extension of tumor. This likely causes at least moderate central canal stenosis. Follow-up with radiation oncology is recommended. 7. There is centrally necrotic subcarinal, retroperitoneal, iliac chain, and left inguinal lymphadenopathy. This is consistent with metastatic disease. 8. There are at least 3 hypervascular hepatic lesions identified. These are pathologically indeterminant and the largest has been present dating back to 2007. This may represent a hemangioma. Metastatic disease is not excluded. 9. There are nonspecific uterine masses, with a possible mass lesion involving the left ovary. This could represent fibroids versus neoplasm. 10. There are small pleural effusions with dependent consolidation. This could represent atelectasis versus pneumonia. Clinical correlation will be required. 11. Postoperative changes consistent with a history of Tania-en-Y gastric bypass procedure. No bowel obstruction is seen. 12. There is induration of the perianal soft tissues with an apparent overlying cutaneous defect. There is also induration of the left infragluteal soft tissues. No organized fluid collection is seen. Correlate clinically for evidence of decubitus ulceration. 13. Additional findings as above. Blood Pressure Blood Pressure Findings: Low blood pressure Blood Pressure Disposition: further management by hospitalist MIRIAN Narrative Patient is a 48-year-old female which I saw yesterday with her main complaint being right upper shoulder pain and right lower back pain. She notes the symptoms have been present for weeks was actually worked up as an inpatient. She noted at that time that she is currently still taking an antibiotic for a previous UTI. Based on this I did discharge her prior to the result of the urine. I called her prior to her getting home as the urine looked clear as if she had a UTI. I questioned her again about the antibiotic and she notes that she misspoke and is not currently taking anything but she still has antibiotics at home to take as she did not take a full course of the last antibiotic. I recommend that she come back in for admission and she declined at that time. I called her again today as well as the pharmacist did she was eventually agreeable to coming back in to the ER. Systolic blood pressures are in the 90s which are fairly consistent with her previous. Labs show no significant leukocytosis. She still has her back pain and I am concerned about her urine culture she is growing out a strep species which I do favor will likely be enterococcus. When you review her previous enterococcus is fairly resistant and she has back pain this would not be amenable to oral medications like Macrobid or fosfomycin as there would be concern for upper tract involvement. This is why recommended that she come back in again and not take her Bactrim. We gave her a dose of IV daptomycin because of this. CT of the back was performed to make sure that she had no abscess and there is none present. Did show some breakdown of the L3 vertebral body. BMP along with LFTs and bilirubin was unremarkable. Discussed with the hospitalist for observation. CT did show L3 posterior vertebral mass with progression into the epidural space likely cancerous. Discussed with Dr. Wells from [facility] hematology oncology. He recommends steroids and radiation oncology will see her tomorrow. Hospitalist who is in agreement patient was given IV steroids and hospitalist requested IV Rocephin. Impression & Plan Pyelonephritis, UTI (urinary tract infection), Flank pain, Metastatic disease, Cancer of lumbar vertebra Discharge Plan Visit Data Chief Complaint: Abnormal Labs/Diagnostic Testing Stated Complaint: DR CALLED DUE TO LABS ED Provider: Semaj Sy Discharge Problem: Pyelonephritis, UTI (urinary tract infection), Flank pain, Metastatic disease, Cancer of lumbar vertebra Patient Disposition: Being Evaluated by Hospitalist Forms Stand Alone Forms: My [facility] Prescriptions Prescriptions: No Action (DME) CPAP Machine Misc See Dose Instructions .ROUTE .MEDSUPPLY Qty: 1 RF: 0 (DME) CPAP Supplies Misc See Dose Instructions .ROUTE .MEDSUPPLY Qty: 1 RF: 0 hydroxyzine HCl 25 mg tablet 25 mg PO TID PRN (Reason: itching) Qty: 30 RF: 1 duloxetine [Cymbalta] 30 mg capsule,delayed release(DR/EC) 30 mg PO QAM Qty: 30 RF: 5 naproxen 250 mg tablet 250 mg PO Q12H PRN (Reason: Pain) Qty: 60 RF: 1 oxycodone 5 mg tablet 5 mg PO Q6H PRN (Reason: pain) Qty: 20 RF: 0 cyanocobalamin (vitamin B-12) 1,000 mcg/mL solution 1,000 mcg SQ .COMPLEX RF: 0 multivitamin tablet,chewable 1 tab PO QAM RF: 0 albuterol sulfate 90 mcg/actuation aerosol powdr breath activated 1 inh INHALATION QID PRN (Reason: SHORT OF BREATH) Qty: 1 RF: 0 levothyroxine 75 mcg tablet 75 mcg PO QAM Qty: 30 RF: 0 oxybutynin chloride 5 mg tablet 5 mg PO BID Qty: 60 RF: 0 magnesium oxide 400 mg (241.3 mg magnesium) tablet 400 mg PO BID RF: 0 ondansetron HCl 8 mg tablet 8 mg PO Q8H PRN (Reason: Nausea) RF: 0 venlafaxine 37.5 mg capsule,extended release 24hr 37.5 mg PO HS RF: 0 prochlorperazine maleate 10 mg tablet 10 mg PO QAM RF: 0 phenazopyridine 200 mg tablet 200 mg PO TID PRN (Reason: UTI) RF: 0 baclofen 5 mg tablet 5 mg PO BID PRN (Reason: muscle spasm) 3 Days Qty: 6 RF: 2 zinc 50 mg Tablet 50 mg PO QAM RF: 0 Keytruda 25 mg/mL Solution 0 mg IV UD RF: 0 Marya-Sequels (iron-vit c) 200 mg (65 mg iron)-25 mg tablet extended release 1 tab PO QAM RF: 0 sulfamethoxazole-trimethoprim [Bactrim DS] 800-160 mg tablet 160 mg PO Q12H Qty: 20 RF: 0 famotidine 40 mg tablet 40 mg PO DAILY PRN (Reason: gerd) RF: 0 ergocalciferol (vitamin D2) [Vitamin D2] 50,000 unit capsule 50,000 unit PO WE RF: 0 sennosides [Senokot] 8.6 mg Tablet 17.2 mg PO QAM PRN (Reason: constipation) Qty: 30 RF: 0 folic acid 1 mg Tablet 1 mg PO QAM Qty: 30 RF: 1 enoxaparin 60 mg/0.6 mL Syringe 60 mg subcut Q12H Qty: 100 RF: 1 Referrals Referrals: Flor Salinas DO [Primary Care Provider] - Discharge Problem: UTI (urinary tract infection) Qualifiers: Urinary tract infection type: site unspecified Hematuria presence: with hematuria Qualified Code(s): N39.0 - Urinary tract infection, site not specified The scribe's documentation has been prepared under my direction and personally reviewed by me in its entirety. I confirm that the note above accurately reflects all work, treatment, procedures, and medical decision making performed by me.
[2019-02-06] MEDS ORDERED: SODIUM CHLORIDE 0.9% 1000ML 1,000 ML IV ONE (20:51)
--- NOTE | 2019-02-06 20:52 | CT Scan Report ---
CT SCAN OF THE ABDOMEN AND PELVIS WITH IV CONTRAST CLINICAL HISTORY: Right flank pain. COMPARISON STUDY: Abdominal CT dated 01/25/2008. TECHNIQUE: Following the IV administration of 93 cc of Optiray 320, CT scan of the abdomen and pelvi s is performed from the lung bases to the proximal femora. Images are reviewed in the axial, sagittal , and coronal planes. IV contrast was administered without complication. A dose lowering technique wa s utilized adhering to the principles of ALARA. The examination is degraded by streak artifact from t he arms which could not be elevated above the abdomen. CT DOSE: 711.23 mGy.cm FINDINGS: Lung bases: The heart is normal in size noting trace pericardial effusion. There are small pleural ef fusions with dependent consolidation. A centrally necrotic subcarinal node is partially visualized an d measures up to 2.1 cm in short axis. Liver: The contrast-enhanced liver is normal in size, contour, and attenuation. There is no intrahepa tic biliary ductal dilatation. The hepatic veins and portal veins are patent. There are 3 hypervascul ar liver lesions. There is a 2.6 cm enhancing lesion in the left lobe seen on image #70. A 1.4 cm enh ancing lesion in the left lobe as seen on image #83, and a 1.2 cm enhancing lesion in the right lobe as seen on image #63. The largest left lobe lesion has been present dating back to 2007 and may repre sent a hemangioma. Gallbladder: Surgically absent noting clips in the gallbladder fossa. Spleen: Normal in size and attenuation. Pancreas: Mild atrophic and grossly unremarkable. Adrenal glands: Unremarkable. Kidneys: The contrast enhanced kidneys are normal in size and without hydronephrosis. Both kidneys de monstrate heterogeneous enhancement. Foci of cortical scarring are noted in the left kidney. Abdominal vasculature: The abdominal aorta is normal in course and caliber. Stomach and bowel: Postoperative changes consistent with a history of Tania-en-Y gastric bypass surger y. The small bowel and colon are normal in course and caliber. The appendix is well-visualized and n ormal. Peritoneum: There is no intraperitoneal free air or abdominal ascites. There is a fat-containing supr aumbilical hernia. Lymphadenopathy: There is centrally necrotic retroperitoneal, pelvic sidewall, and iliac chain lympha denopathy. An aortocaval node on image #176 measures 2.7 x 1.9 cm. A node in the region of the left i nguinal canal on image #360 measures 2.8 x 2.3 cm. A centrally necrotic left inguinal node on image # 357 measures 1.2 cm. Pelvic viscera: The bladder wall is markedly thickened, heterogeneous, and hyperemic. Bladder diverti cula are noted. There are several enhancing uterine masses. There may be an enhancing lesion involvin g the left ovary. This is not well delineated. Skeletal structures: The skeletal structures are osteopenic. There is chronic deformity of the bony p joey. 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 This debra ures up to 5.7 cm in length. There are mild superior endplate compression deformities of T8 and T10. 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 Several lesions are identified through out the ribs, the lumbar spine, and in the pelvis. There is a lesion within the body of L3 which caus es a minimal compression deformity, with loss of the posterior cortex. There is posterior epidural ex tension of tumor at L3 seen on image #206. This causes at least moderate acquired compromise of the c entral canal. There is a pathologic fracture of the anterior left fourth rib. A lesion in the anterio r right iliac wing as seen on image #304. Soft tissues: There is infiltration of the perianal soft tissues with an apparent cutaneous defect. T here is also infiltration of the soft tissues inferomedial soft tissues. No organized fluid collectio n is identified. IMPRESSION: 1. There is spinal dysraphism, a large meningocele, and chronic deformity of the bony pelvis. 2. The bladder wall is markedly thickened and hyperemic. There are several bladder diverticula. This likely represents a neurogenic bladder. Correlate clinically and with urinalysis for evidence of cyst itis. 3. The kidneys enhance heterogeneously. Correlate clinically and with urinalysis for evidence of asce nding urinary tract infection/pyelonephritis. 4. 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 Correlation with the patient's onco logical history will be required. 5. There is a pathologic fracture of the left anterior fourth rib. 6. There is a large lesion in the posterior aspect of the L3 vertebral with a mild compression deform ity at this level. There is breakthrough of the posterior cortex and epidural extension of tumor. Thi s likely causes at least moderate central canal stenosis. Follow-up with radiation oncology is recomm ended. 7. There is centrally necrotic subcarinal, retroperitoneal, iliac chain, and left inguinal lymphadeno luz maria. This is consistent with metastatic disease. 8. There are at least 3 hypervascular hepatic lesions identified. These are pathologically indetermin ant and the largest has been present dating back to 2007. This may represent a hemangioma. Metastatic disease is not excluded. 9. There are nonspecific uterine masses, with a possible mass lesion involving the left ovary. This c ould represent fibroids versus neoplasm. 10. There are small pleural effusions with dependent consolidation. This could represent atelectasis versus pneumonia. Clinical correlation will be required. 11. Postoperative changes consistent with a history of Tania-en-Y gastric bypass procedure. No bowel o bstruction is seen. 12. There is induration of the perianal soft tissues with an apparent overlying cutaneous defect. The re is also induration of the left infragluteal soft tissues. No organized fluid collection is seen. C orrelate clinically for evidence of decubitus ulceration. 13. Additional findings as above. Electronically signed by: Madi Curtis M.D. 02/06/2019 8:50 PM
[2019-02-06 20:53] LABS: Alanine Aminotransferase 16 U/L (12-78); Albumin Globulin Ratio 0.5 (0.9-2); Alkaline Phosphatase 154 U/L (45-117); Aspartate Aminotransferase 24 U/L (15-37); BUN Creatinine Ratio 24.6 (10-20); Bilirubin,Total 0.5 mg/dl (0.2-1); Blood Urea Nitrogen 18 mg/dl (7-18); Calcium 9.1 mg/dl (8.5-10.1); Carbon Dioxide 28 mmol/L (21-32); Chloride 105 mmol/L (98-107); Est GFR (African American) 110.3; Est GFR (Non-African American) 95.1; Globulin 4.2 gm/dl (2.5-4.0); Glucose 95 mg/dl (70-99); Potassium 4.1 mmol/L (3.5-5.1); Sodium 139 mmol/L (136-145); Total Protein 6.2 gm/dl (6.4-8.2)
[2019-02-06] MEDS ORDERED: cefTRIAXone SODIUM 2,000 MG/70 ML BAG IV STA (21:34)
[2019-02-06] MEDS ORDERED: DEXAMETHASONE SOD INJ 4 MG/ML VIAL IV STA (21:34)
[2019-02-06] MEDS ORDERED: MoRPHine SULFATE 2 MG/ML CARP IV STA (21:35)
[2019-02-06] MEDS ORDERED: MoRPHine SULFATE 4 MG/ML 1 ML CARP\\VIAL ONE (22:01)
[2019-02-06] MEDS ORDERED: MAGNESIUM HYDROXIDE SUSP 30 ML UDC PO PRN (23:27)
[2019-02-06] MEDS ORDERED: ONDANSETRON INJ 2 MG/ML 2 ML VIAL IV PRN (23:27)
[2019-02-06] MEDS ORDERED: ACETAMINOPHEN 325 MG TAB PO PRN (23:27)
[2019-02-06] MEDS ORDERED: ALUMINUM/MAGNESIUM SUSP 30 ML UDC PO PRN (23:27)
[2019-02-06] MEDS ORDERED: POLYETHYLENE (MIRALAX) 17 GM PACK PO PRN (23:27)
[2019-02-06] MEDS ORDERED: PATIENT'S HEIGHT AND/OR WEIGHT NEEDED SCH (23:45)
[2019-02-07] MEDS: TRAMADOL HCL 50 MG TABLET PO PRN ×2 (01:04→10:07)
[2019-02-07] MEDS ORDERED: HEPARIN 100 UNIT/ML 5ML FLUSH FLUSH PRN (01:11)
--- NOTE | 2019-02-07 01:12 | History & Physical Report ---
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 Her medical oncologist was consulted over the phone by the ED. Consult radiation oncology. Present on Admission?: Yes (2) Cancer of lumbar vertebra: See above Present on Admission?: Yes (3) Bladder cancer: See above. Present on Admission?: Yes (4) UTI (urinary tract infection): Recurrent urinary tract infection, likely enterococcus. Continue daptomycin IV begun in the ED. Follow urine culture and sensitivities. Place on IV fluids and Aguilar catheter Present on Admission?: Yes (5) Pulmonary emboli: Continue enoxaparin 60 mg subcu every 12 hours Present on Admission?: Yes (6) Diabetes mellitus: Not on any regular medication at this point, however, with being placed on Decadron IV, if her sugars start to increase on labs, will need to be placed on Accu-Cheks and insulin. Present on Admission?: Yes (7) Asthma: Continue albuterol as needed Present on Admission?: Yes (8) Depression: Continue duloxetine Present on Admission?: Yes (9) Hypothyroidism: Levothyroxine sodium 75 mcg daily Present on Admission?: Yes (10) Neurogenic bladder: Continue all routine medications. Present on Admission?: Yes (11) Spina bifida of lumbar region: Continue all routine medications Present on Admission?: Yes History of Present Illness Chief Complaint: Patient was called back into the emergency department after being seen the previous evening, with urinalysis and urine culture suggestive of infection most likely a recurrence of her previous MDR enterococcus UTI. Primary Care Provider: Flor Salinas DO The patient is a 48-year-old female with a past medical history including metastatic bladder cancer, who had presented to the emergency department the previous evening with symptoms of UTI consisting of burning and back pain. It was felt that a urine culture is most likely going to grow enterococcus again as noted, but because of recurrence of the symptoms, she underwent a CT of the abdomen pelvis.the CT was significant for worsening metastatic disease, and in particular showed a large lesion in the posterior aspect of the L3 vertebrae with a mild compression deformity there, and breakthrough of the posterior cortex and epidural extension of the tumor, causing at least moderate central canal stenosis, with follow-up suggested with radiation oncology. Allergies Allergy/AdvReac Type Severity Reaction Status Date / Time vancomycin Allergy Severe MATT Verified 02/06/19 22:24 citalopram Allergy Intermediate Hives Verified 02/06/19 22:24 adhesive tape AdvReac Mild Rash Verified 02/06/19 22:24 Home Medications Home Medications Medication Instructions Recorded Confirmed Type zinc 50 mg PO QAM 08/15/18 02/06/19 History albuterol sulfate 90 mcg/actuation 1 inh INHALATION QID PRN #1 ea 09/21/18 02/06/19 Rx breath activated powder inhaler cyanocobalamin (vitamin B-12) 1,000 mcg SQ .COMPLEX 09/21/18 02/06/19 History 1,000 mcg/mL injection solution levothyroxine 75 mcg tablet 75 mcg PO QAM #30 tab 09/21/18 02/06/19 Rx multivitamin 1 tab PO QAM 09/21/18 02/06/19 History oxybutynin chloride 5 mg tablet 5 mg PO BID #60 tab 09/21/18 02/06/19 Rx CPAP Machine #1 ea 01/04/19 01/26/19 Rx miscellaneous medical supply #1 ea 01/04/19 01/26/19 Rx ergocalciferol (vitamin D2) 50,000 unit PO WE 01/17/19 02/06/19 History [Vitamin D2] famotidine [Pepcid] 40 mg PO DAILY PRN 01/17/19 02/06/19 History duloxetine 30 mg capsule,delayed 30 mg PO QAM #30 cap 01/18/19 02/06/19 Rx release hydroxyzine HCl 25 mg tablet 25 mg PO TID PRN #30 tab 01/18/19 02/06/19 Rx naproxen 250 mg tablet 250 mg PO Q12H PRN #60 tab 01/19/19 02/06/19 Rx enoxaparin 60 mg SUBCUT Q12H #100 ml 01/20/19 02/06/19 Rx folic acid 1 mg PO QAM #30 tab 01/20/19 02/06/19 Rx sennosides [Senokot] 17.2 mg PO QAM PRN #30 tab 01/20/19 02/06/19 Rx baclofen 5 mg tablet 5 mg PO BID PRN 3 Days #6 tab 01/24/19 02/06/19 Rx magnesium oxide 400 mg (241.3 mg 400 mg PO BID tab 01/24/19 02/06/19 History magnesium) tablet ondansetron HCl 8 mg tablet 8 mg PO Q8H PRN tab 01/24/19 02/06/19 History phenazopyridine 200 mg tablet 200 mg PO TID PRN tab 01/24/19 02/06/19 History prochlorperazine maleate 10 mg 10 mg PO QAM tab 01/24/19 02/06/19 History tablet venlafaxine 37.5 mg 37.5 mg PO HS cap 01/24/19 02/06/19 History capsule,extended release 24 hr oxycodone 5 mg tablet 5 mg PO Q6H PRN #20 tab 02/02/19 02/06/19 Rx ferrous fumarate-vitamin C 1 tab PO QAM 02/05/19 02/06/19 History [Marya-Sequels (iron-vit c)] pembrolizumab [Keytruda] 0 mg IV UD 02/05/19 02/06/19 History Past Med/Surg History Medical History Anxiety Asthma Rarely use inhaler. Only during allergy seasons. Last use was about 3 weeks ago. 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 AT AGE 2 Hypothyroidism Migraine HX OF Neurogenic bladder ST CATH 6X DAILY AND PRN Osteoarthritis Progressive lipodystrophy Seasonal allergies REASON FOR INHALER RX (HAS NOT USED FOR A LONG TIME) Sleep apnea Spina bifida of lumbar region Urinary incontinence Vitamin D deficiency Surgical History H/O transurethral destruction of bladder lesion TURBT 08/17/18 History of amputation below knee 2/2 osteomylitis History of cystoscopy History of dilatation and curettage UTERINE ABLATION History of esophagogastroduodenoscopy (EGD) History of open reduction and internal fixation (ORIF) procedure LEFT LEG History of reduction of breast (Resolved 05/20/12) History of surgery MULTIPLE SURGERIES ON LEFT LEG (I&D'S) History of tooth extraction Hx laparoscopic cholecystectomy Hx of bilateral breast reduction surgery S/P panniculectomy Status post gastric bypass for obesity Family History Grandmother (Paternal) Diabetes Grandfather (Paternal) Diabetes Coronary heart disease Aunt Diabetes Uncle Diabetes Uncle Diabetes Other No significant family history Social History Preferred Language: Hungarian Communication Ability: Effective Visual Impairment: No Limitations Hearing Ability: Normal Documentation Engineer Required: No Beliefs That Will Affect Care: None marital status: Current Living Situation: Spouse current occupational status: disabled Feels Safe at Home: Yes Safety Concerns: Feels Safe At This Time Smoking Status: Never smoker Tobacco Type: cigarettes ; Cigarettes Per Day: 10 CIG IN THE PAST MONTH ; Second Hand Exposure: Yes ; Hx Alcohol Use: Yes Alcohol type: beer and wine Hx Substance Use: No Childhood Exposure to Second-Hand Smoke: Yes caffeine: Yes Dental Care, Regularly: No Physical Activity Frequency: Does not Exercise Seatbelt Use: sometimes Sunscreen Use: Yes Review of Systems Review of Systems: The patient denies chest pain, palpitations, shortness of breath, dyspnea on exertion, cough, lower extremity swelling, sore throat, nausea, vomiting, diarrhea, constipation, abdominal pain, pelvic pain, blood in urine or stool, lightheadedness, dizziness, headache, memory loss, loss of consciousness, rash, abnormal bruising or bleeding, neck pain, or night sweats. The review of systems is otherwise negative other than for that already noted above, and at least 10 systems have been reviewed. Physical Exam Physical Exam: The patient is awake, alert and oriented 3, normocephalic and atraumatic, lying in bed and in no acute distress. HEENT--PERRL, EOMI, mucous membranes and oropharynx dry. Neck--supple. No JVD. No bruits. Thyroid normal, trachea midline, no adenopathy. Heart--normal S1 and S2. No murmurs, rubs or gallops. Lungs--clear bilaterally, no respiratory distress, no accessory muscle use. Abdomen--normal bowel sounds and soft. Nontender. Nondistended. Extremities--no cyanosis or clubbing. Left BKA. Dermatologic--normal skin turgor, normal color, no abnormal lymph nodes, no rash. Neurologic--cranial nerves II through XII grossly intact. Rheumatologic--limited due to spina bifida Psychiatric--normal affect. Results & Data Vital Signs (Past 12 Hours) Vital Signs Temp Pulse Pulse Resp BP BP Pulse Ox 02/06/19 23:26 99.3 F 97 H 18 106/73 95 02/06/19 23:04 77 18 99/72 L 99 02/06/19 18:32 98.8 F 78 20 92/62 L 93 Laboratory Results Laboratory Results WBC 7.84 K/uL (4.8-10.8) 02/06/19 19:45 RBC 3.28 M/uL (4.2-5.4) L 02/06/19 19:45 Hgb 10.0 g/dL (12.0-16.0) L 02/06/19 19:45 Hct 31.6 % (37-47) L 02/06/19 19:45 MCV 96.3 fL (80-100) 02/06/19 19:45 MCH 30.5 pg (25-34) 02/06/19 19:45 MCHC 31.6 g/dL (32-36) L 02/06/19 19:45 RDW Std Deviation 50.5 fL (36.4-46.3) H 02/06/19 19:45 RDW Coeff of Jennifer 14.2 % (11.5-14.5) 02/06/19 19:45 Plt Count 233 K/uL (130-400) 02/06/19 19:45 MPV 9.6 fL (7.4-10.4) 02/06/19 19:45 Immature Gran % (Auto) 0.4 % 02/06/19 19:45 Neut % (Auto) 80.2 % 02/06/19 19:45 Lymph % (Auto) 11.0 % 02/06/19 19:45 [place] % (Auto) 6.1 % 02/06/19 19:45 Eos % (Auto) 2.0 % 02/06/19 19:45 Baso % (Auto) 0.3 % 02/06/19 19:45 Immature Gran # (Auto) 0.03 K/uL (0.00-0.02) H 02/06/19 19:45 Neut # (Auto) 6.29 K/uL (1.4-6.5) 02/06/19 19:45 Lymph # (Auto) 0.86 K/uL (1.2-3.4) L 02/06/19 19:45 [place] # (Auto) 0.48 K/uL (0.11-0.59) 02/06/19 19:45 Eos # (Auto) 0.16 K/uL (0-0.5) 02/06/19 19:45 Baso # (Auto) 0.02 K/uL (0-0.2) 02/06/19 19:45 PT 12.8 Seconds (9.0-12.0) H 02/06/19 19:45 INR 1.3 (0.9-1.1) H 02/06/19 19:45 APTT 32.3 Seconds (21.0-31.0) H 02/06/19 19:45 PTT Ratio 1.2 02/06/19 19:45 Sodium 139 mmol/L (136-145) 02/06/19 19:45 Potassium 4.1 mmol/L (3.5-5.1) D 02/06/19 19:45 Chloride 105 mmol/L (98-107) 02/06/19 19:45 Carbon Dioxide 28 mmol/L (21-32) 02/06/19 19:45 Anion Gap 6.0 (3-11) 02/06/19 19:45 BUN 18 mg/dl (7-18) 02/06/19 19:45 Creatinine 0.74 mg/dl (0.6-1.2) 02/06/19 19:45 Est Cr Clr Drug Dosing Not Reportable 02/06/19 19:45 Est GFR ( Amer) 110.3 02/06/19 19:45 Est GFR (Non-Af Amer) 95.1 02/06/19 19:45 BUN/Creatinine Ratio 24.6 (10-20) H 02/06/19 19:45 Glucose 95 mg/dl (70-99) 02/06/19 19:45 Lactate 1.4 mmol/L (0.4-2.0) 02/06/19 19:52 Calcium 9.1 mg/dl (8.5-10.1) 02/06/19 19:45 Total Bilirubin 0.5 mg/dl (0.2-1) 02/06/19 19:45 AST 24 U/L (15-37) 02/06/19 19:45 ALT 16 U/L (12-78) 02/06/19 19:45 Alkaline Phosphatase 154 U/L (45-117) H 02/06/19 19:45 Total Protein 6.2 gm/dl (6.4-8.2) L 02/06/19 19:45 Albumin 2.0 gm/dl (3.4-5.0) L 02/06/19 19:45 Globulin 4.2 gm/dl (2.5-4.0) H 02/06/19 19:45 Albumin/Globulin Ratio 0.5 (0.9-2) L 02/06/19 19:45 Diagnostic Findings [place], [place] [phone] CT Scan Report Patient: ELENA EARLY Date: 02/06/19 MR#: [id number]: [address] Acct ID:[id number]: Date: 1970[facility] Zip: [place] [address] Age: 48Location: ED Sex: F Room/Bed: Att Phy:Diagnosis: DR CALLED DUE TO LABS Breann Phy: Flor Salinas, DOService Date: 02/06/19 Fam Phy:Interpreting Phy: Madi Curtis MD Admit Phy: Ordering Phy: Semaj Sy, DO cc: ~ CT SCAN OF THE ABDOMEN AND PELVIS WITH IV CONTRAST CLINICAL HISTORY: Right flank pain. COMPARISON STUDY: Abdominal CT dated 01/25/2008. TECHNIQUE: Following the IV administration of 93 cc of Optiray 320, CT scan of the abdomen and pelvis is performed from the lung bases to the proximal femora. Images are reviewed in the axial, sagittal, and coronal planes. IV contrast was administered without complication. A dose lowering technique was utilized adhering to the principles of ALARA. The examination is degraded by streak artifact from the arms which could not be elevated above the abdomen. CT DOSE: 711.23 mGy.cm FINDINGS: Lung bases: The heart is normal in size noting trace pericardial effusion. There are small pleural effusions with dependent consolidation. A centrally necrotic subcarinal node is partially visualized and measures up to 2.1 cm in short axis. Liver: The contrast-enhanced liver is normal in size, contour, and attenuation. There is no intrahepatic biliary ductal dilatation. The hepatic veins and portal veins are patent. There are 3 hypervascular liver lesions. There is a 2.6 cm enhancing lesion in the left lobe seen on image #70. A 1.4 cm enhancing lesion in the left lobe as seen on image #83, and a 1.2 cm enhancing lesion in the right lobe as seen on image #63. The largest left lobe lesion has been present dating back to 2007 and may represent a hemangioma. Gallbladder: Surgically absent noting clips in the gallbladder fossa. Spleen: Normal in size and attenuation. Pancreas: Mild atrophic and grossly unremarkable. Adrenal glands: Unremarkable. Kidneys: The contrast enhanced kidneys are normal in size and without hydronephrosis. Both kidneys demonstrate heterogeneous enhancement. Foci of cortical scarring are noted in the left kidney. Abdominal vasculature: The abdominal aorta is normal in course and caliber. Stomach and bowel: Postoperative changes consistent with a history of Tania-en-Y gastric bypass surgery. The small bowel and colon are normal in course and caliber. The appendix is well-visualized and normal. Peritoneum: There is no intraperitoneal free air or abdominal ascites. There is a fat-containing supraumbilical hernia. Lymphadenopathy: There is centrally necrotic retroperitoneal, pelvic sidewall, and iliac chain lymphadenopathy. An aortocaval node on image #176 measures 2.7 x 1.9 cm. A node in the region of the left inguinal canal on image #360 measures 2.8 x 2.3 cm. A centrally necrotic left inguinal node on image #357 measures 1.2 cm. Pelvic viscera: The bladder wall is markedly thickened, heterogeneous, and hyperemic. Bladder diverticula are noted. There are several enhancing uterine masses. There may be an enhancing lesion involving the left ovary. This is not well delineated. Skeletal structures: The skeletal structures are osteopenic. There is chronic deformity of the bony pelvis. 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 This measures up to 5.7 cm in length. There are mild superior endplate compression deformities of T8 and T10. 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 Several lesions are identified throughout the ribs, the lumbar spine, and in the pelvis. There is a lesion within the body of L3 which causes a minimal compression deformity, with loss of the posterior cortex. There is posterior epidural extension of tumor at L3 seen on image #206. This causes at least moderate acquired compromise of the central canal. There is a pathologic fracture of the anterior left fourth rib. A lesion in the anterior right iliac wing as seen on image #304. Soft tissues: There is infiltration of the perianal soft tissues with an apparent cutaneous defect. There is also infiltration of the soft tissues inferomedial soft tissues. No organized fluid collection is identified. IMPRESSION: 1. There is spinal dysraphism, a large meningocele, and chronic deformity of the bony pelvis. 2. The bladder wall is markedly thickened and hyperemic. There are several bladder diverticula. This likely represents a neurogenic bladder. Correlate clinically and with urinalysis for evidence of cystitis. 3. The kidneys enhance heterogeneously. Correlate clinically and with urinalysis for evidence of ascending urinary tract infection/pyelonephritis. 4. 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 Correlation with the patient's oncological history will be required. 5. There is a pathologic fracture of the left anterior fourth rib. 6. There is a large lesion in the posterior aspect of the L3 vertebral with a mild compression deformity at this level. There is breakthrough of the posterior cortex and epidural extension of tumor. This likely causes at least moderate central canal stenosis. Follow-up with radiation oncology is recommended. 7. There is centrally necrotic subcarinal, retroperitoneal, iliac chain, and left inguinal lymphadenopathy. This is consistent with metastatic disease. 8. There are at least 3 hypervascular hepatic lesions identified. These are pathologically indeterminant and the largest has been present dating back to 2007. This may represent a hemangioma. Metastatic disease is not excluded. 9. There are nonspecific uterine masses, with a possible mass lesion involving the left ovary. This could represent fibroids versus neoplasm. 10. There are small pleural effusions with dependent consolidation. This could represent atelectasis versus pneumonia. Clinical correlation will be required. 11. Postoperative changes consistent with a history of Tania-en-Y gastric bypass procedure. No bowel obstruction is seen. 12. There is induration of the perianal soft tissues with an apparent overlying cutaneous defect. There is also induration of the left infragluteal soft tissues. No organized fluid collection is seen. Correlate clinically for evidence of decubitus ulceration. 13. Additional findings as above. Electronically signed by: Madi Curtis M.D. 02/06/2019 8:50 PM Dictated: 02/06/192029 Transcribed: 02/06/192029 Code Status & VTE Plan Code Status Full code VTE Prophylaxis Plan VTE Prophylaxis will be ordered: Yes PG Care Time/CCT Total # of Minutes Spent Total Time Spent with Patient: Total time spent is greater than 50% in coordination of care (as documented) at patient's floor/unit and/or counseling patient: (1) UTI (urinary tract infection) Hematuria presence: with hematuria Urinary tract infection type: site unspecified Qualified Code(s): N39.0 - Urinary tract infection, site not specified; R31.9 - Hematuria, unspecified (2) Pulmonary emboli Pulmonary embolism type: unspecified Chronicity: unspecified Acute cor pulmonale presence: unspecified Qualified Code(s): I26.99 - Other pulmonary embolism without acute cor pulmonale (3) Bladder cancer Bladder location: unspecified site Qualified Code(s): C67.9 - Malignant neoplasm of bladder, unspecified (4) Diabetes mellitus Diabetes mellitus type: due to underlying condition 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 use: without senior care use Diabetes mellitus complication status: without complication Qualified Code(s): E08.9 - Diabetes mellitus due to underlying condition without complications (5) Asthma Asthma severity: mild Asthma persistence: intermittent Asthma complication type: uncomplicated Qualified Code(s): J45.20 - Mild intermittent asthma, uncomplicated (6) Depression Depression Type: major depressive disorder Major depression recurrence: unspecified whether recurrent Active/Remission status: remission status unspecified Qualified Code(s): F32.9 - Major depressive disorder, single episode, unspecified (7) Hypothyroidism Hypothyroidism type: unspecified Qualified Code(s): E03.9 - Hypothyroidism, unspecified (8) Spina bifida of lumbar region Presence of hydrocephalus: with hydrocephalus Qualified Code(s): Q05.2 - Lumbar spina bifida with hydrocephalus
[2019-02-07] MEDS ORDERED: BACLOFEN 10 MG TAB PO PRN (03:47)
[2019-02-07] MEDS ORDERED: SENNA 8.6 MG TAB PO PRN (03:47)
[2019-02-07] MEDS ORDERED: PHENAZOPYRIDINE HCL 200 MG TAB PO PRN (03:47)
[2019-02-07] MEDS ORDERED: OXYCODONE HCL IR 5 MG TAB (IMMEDIATE RELEASE) PO PRN (04:40)
[2019-02-07] MEDS: ENOXAPARIN INJ 60 MG/0.6 ML SYR SQ SCH ×2 (05:01→16:40)
[2019-02-07] MEDS: HEPARIN 100 UNIT/ML 5ML FLUSH IV PRN ×3 (05:02→16:40)
[2019-02-07] MEDS: DEXAMETHASONE SOD PHOSPHATE 6 MG in SYRINGE 0 ML IV SCH ×3 (05:02→16:41)
[2019-02-07] MEDS ORDERED: DEXAMETHASONE SOD INJ 4 MG/ML VIAL IV SCH (06:00)
[2019-02-07] MEDS ORDERED: LEVOTHYROXINE SODIUM 75 MCG TABLET PO SCH (06:30)
[2019-02-07] MEDS ORDERED: OXYBUTYNIN CHLORIDE 5 MG TAB PO SCH (09:00)
[2019-02-07] MEDS ORDERED: FERROUS FUMARATE/ASCORBIC ACID 65 MG CAPCR PO SCH (09:00)
[2019-02-07] MEDS ORDERED: FOLIC ACID 1 MG TAB PO SCH (09:00)
[2019-02-07] MEDS ORDERED: DULOXETINE HCL 30 MG CAP PO SCH (09:00)
[2019-02-07] MEDS ORDERED: MAGNESIUM OXIDE 400 MG TAB PO SCH (09:00)
[2019-02-07] MEDS ORDERED: FAMOTIDINE 20 MG TAB PO SCH (09:00)
[2019-02-07] MEDS ORDERED: MULTIVITAMIN TAB PO SCH (09:00)
[2019-02-07] MEDS ORDERED: ZINC SULFATE 220 MG CAPSULE PO SCH (09:00)
[2019-02-07 10:57] LABS: iSTAT Creatinine 0.9 mg/dl (0.6-1.3); iSTAT Hemoglobin 10.2 g/dl (12.0-16.0); iSTAT Ionized Calcium 1.22 mmol/l (1.12-1.32); iSTAT Potassium 4.2 mEq/L (3.3-5.0)
--- NOTE | 2019-02-07 11:09 | Radiation OncologyConsultation ---
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 Treatment Options: 1. Palliative radiation to the L3 vertebral body. 2. Pain medication as required. 3. Medical oncology evaluation. Recommendations: I recommended a course of palliative radiation to the L3 vertebral body. Plan: 1. CT simulation scheduled for this morning at 11 AM. 2. Completion of treatment planning. 3. The patient will start her course of palliative radiation next week. 4. The patient will be discharged and we will contact her at home and arrange for transportation and initiation of palliative radiation. Rationale/Explanation of Treatment: Patient was found to have metastatic disease with a large lesion in the posterior aspect of L3 vertebrae. There was mild compression deformity and breakthrough of the posterior cortex and epidural extension of the tumor. This was causing at least moderate central canal stenosis. I spoke with the patient about the use of palliative radiation to treat bony pain and cord impingement. I described a course of radiation consisting of 10 fractions at 300 cGy per fraction for a total dose of 30 Gy. The risks of treatment were reviewed with the patient. The consent form was presented to the patient. The risks were reviewed and initialed and the consent form was reviewed signed and witnessed. Thank you for asking us to see this pleasant woman. This chart was completed in part utilizing [employer] Voice Recognition sof [employer]. Grammatical errors, random word insertions, pronoun errors and incomplete sentences are occasional consequence of this system due to software limitations, ambient noise and hardware issues. Any formal questions or concerns about the content, text or information contained within the body of this dictation should be directly addressed to the provider for clarification. Danish Hawk MD Department of Radiation Oncology [facility] Anu Castaneda [facility] History of Present Illness Reason for Consultation: Metastatic disease to L3 Attending Physician: Semaj Alexis DO History of Present Illness Ms. Chen is a 48-year-old female with a past medical history of metastatic bladder cancer and multiple comorbidities. She recently presented to the emergency department with symptoms of a UTI and complaint of burning and back pain. She was treated for the UTI and a CT scan of the abdomen and pelvis was performed. This showed progressive metastatic disease. Most significantly a large lesion was appreciated in the posterior aspect of the L3 vertebral body with mild compression deformity. There was breakthrough of the posterior cortex with epidural extension of tumor causing at least moderate central canal stenosis. The patient describes pain in the lower back exacerbated by movement without radiation down into the legs. She denies any numbness or change in motor strength. We were asked to see the patient for evaluation and consideration of palliative radiation. It is for this reason the patient is being seen today. This chart was completed in part utilizing [employer] Voice Recognition software. Grammatical errors, random word insertions, pronoun errors and incomplete sentences are occasional consequence of this system due to software limitations, ambient noise and hardware issues. Any formal questions or concerns about the content, text or information contained within the body of this dictation should be directly addressed to the provider for clarification. Danish Hakw MD Department of Radiation Oncology [facility] and Carissa Castaneda [facility] Allergies Allergy/AdvReac Type Severity Reaction Status Date / Time vancomycin Allergy Severe MATT Verified 02/06/19 22:24 citalopram Allergy Intermediate Hives Verified 02/06/19 22:24 adhesive tape AdvReac Mild Rash Verified 02/06/19 22:24 Home Medications Home Medications Medication Instructions Recorded Confirmed Type zinc 50 mg PO QAM 08/15/18 02/06/19 History albuterol sulfate 90 mcg/actuation 1 inh INHALATION QID PRN #1 ea 09/21/18 02/06/19 Rx breath activated powder inhaler cyanocobalamin (vitamin B-12) 1,000 mcg SQ .COMPLEX 09/21/18 02/06/19 History 1,000 mcg/mL injection solution levothyroxine 75 mcg tablet 75 mcg PO QAM #30 tab 09/21/18 02/06/19 Rx multivitamin 1 tab PO QAM 09/21/18 02/06/19 History oxybutynin chloride 5 mg tablet 5 mg PO BID #60 tab 09/21/18 02/06/19 Rx CPAP Machine #1 ea 01/04/19 01/26/19 Rx miscellaneous medical supply #1 ea 01/04/19 01/26/19 Rx ergocalciferol (vitamin D2) 50,000 unit PO WE 01/17/19 02/06/19 History [Vitamin D2] famotidine [Pepcid] 40 mg PO DAILY PRN 01/17/19 02/06/19 History duloxetine 30 mg capsule,delayed 30 mg PO QAM #30 cap 01/18/19 02/06/19 Rx release hydroxyzine HCl 25 mg tablet 25 mg PO TID PRN #30 tab 01/18/19 02/06/19 Rx naproxen 250 mg tablet 250 mg PO Q12H PRN #60 tab 01/19/19 02/06/19 Rx enoxaparin 60 mg SUBCUT Q12H #100 ml 01/20/19 02/06/19 Rx folic acid 1 mg PO QAM #30 tab 01/20/19 02/06/19 Rx sennosides [Senokot] 17.2 mg PO QAM PRN #30 tab 01/20/19 02/06/19 Rx baclofen 5 mg tablet 5 mg PO BID PRN 3 Days #6 tab 01/24/19 02/06/19 Rx magnesium oxide 400 mg (241.3 mg 400 mg PO BID tab 01/24/19 02/06/19 History magnesium) tablet ondansetron HCl 8 mg tablet 8 mg PO Q8H PRN tab 01/24/19 02/06/19 History phenazopyridine 200 mg tablet 200 mg PO TID PRN tab 01/24/19 02/06/19 History prochlorperazine maleate 10 mg 10 mg PO QAM tab 01/24/19 02/06/19 History tablet venlafaxine 37.5 mg 37.5 mg PO HS cap 01/24/19 02/06/19 History capsule,extended release 24 hr oxycodone 5 mg tablet 5 mg PO Q6H PRN #20 tab 02/02/19 02/06/19 Rx ferrous fumarate-vitamin C 1 tab PO QAM 02/05/19 02/06/19 History [Marya-Sequels (iron-vit c)] pembrolizumab [Keytruda] 0 mg IV UD 02/05/19 02/06/19 History Patient History Medical History Anxiety Asthma Rarely use inhaler. Only during allergy seasons. Last use was about 3 weeks ago. 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 P Chronic UTI REASON FOR MACROBID Depression Diabetes mellitus Dyslipidemia GERD (gastroesophageal reflux disease) Hiatal hernia History of left below knee amputation secondary to osteomyelitis from traumatic injury Hydrocephalus (Chronic 05/20/12) s/p SHORTS SIFTER shunt AND REPLACED AT AGE 2 Hypothyroidism Migraine HX OF Neurogenic bladder ST CATH 6X DAILY AND PRN Osteoarthritis Progressive lipodystrophy Seasonal allergies REASON FOR INHALER RX (HAS NOT USED FOR A LONG TIME) Sleep apnea Spina bifida of lumbar region Urinary incontinence Vitamin D deficiency Surgical History H/O transurethral destruction of bladder lesion TURBT 08/17/18 History of amputation below knee 2/2 osteomylitis History of cystoscopy History of dilatation and curettage UTERINE ABLATION History of esophagogastroduodenoscopy (EGD) History of open reduction and internal fixation (ORIF) procedure LEFT LEG History of reduction of breast (Resolved 05/20/12) History of surgery MULTIPLE SURGERIES ON LEFT LEG (I&D'S) History of tooth extraction Hx laparoscopic cholecystectomy Hx of bilateral breast reduction surgery S/P panniculectomy Status post gastric bypass for obesity Family History Grandmother (Paternal) Diabetes Grandfather (Paternal) Diabetes Coronary heart disease Aunt Diabetes Uncle Diabetes Uncle Diabetes Other No significant family history Social History Preferred Language: Estonian Communication Ability: Effective Visual Impairment: No Limitations Hearing Ability: Normal Canal [employer] Required: No Beliefs That Will Affect Care: None marital status: Current Living Situation: Spouse current occupational status: disabled Feels Safe at Home: Yes Safety Concerns: Feels Safe At This Time Smoking Status: Never smoker Tobacco Type: cigarettes ; Cigarettes Per Day: 10 CIG IN THE PAST MONTH ; Second Hand Exposure: Yes ; Hx Alcohol Use: Yes Alcohol type: beer and wine Hx Substance Use: No Childhood Exposure to Second-Hand Smoke: Yes caffeine: Yes Dental Care, Regularly: No Physical Activity Frequency: Does not Exercise Seatbelt Use: sometimes Sunscreen Use: Yes Review of Systems Review of Systems: All systems reviewed & are unremarkable except as noted in HPI & below Patient has a history of metastatic bladder cancer. She was recently seen in the emergency department with symptoms of a UTI. This was causing urinary burning and back pain. The back pain have been present for about a week and was moderately severe. The pain did not radiate down into the legs but did radiate across the back. Physical Exam Constitutional: The patient is alert and awake and is oriented x3. She is presently lying in her bed and not complaining of any acute pain. Eyes: PERRL, conjunctivae normal, anicteric sclerae ENMT: external ear and nose normal, oropharynx normal Neck: trachea midline, no thyromegaly There is no cervical or supraclavicular adenopathy appreciated. There is no carotid bruits appreciated. Respiratory: Patient has adequate air movement which is clear to auscultation and percussion. Cardiovascular: RRR, no murmur, no edema Chest (Breasts): normal inspection/palpation of breasts Gastrointestinal (Abdomen): normal bowel sounds, soft, nontender, no hepatosplenomegaly Musculoskeletal: There is evidence of bilateral muscle atrophy and a left BKA. Skin: no rashes, warm and dry Neurologic: CN's II-XI intact bilaterally Psychiatric: A+Ox3, euthymic affect Lymphatic: no cervical or axillary lymphadenopathy Results Additional Studies 02/06/19 19:45 CT SCAN OF THE ABDOMEN AND PELVIS WITH IV CONTRAST CLINICAL HISTORY: Right flank pain. COMPARISON STUDY: Abdominal CT dated 01/25/2008. TECHNIQUE: Following the IV administration of 93 cc of Optiray 320, CT scan of the abdomen and pelvis is performed from the lung bases to the proximal femora. Images are reviewed in the axial, sagittal, and coronal planes. IV contrast was administered without complication. A dose lowering technique was utilized adhering to the principles of ALARA. The examination is degraded by streak artifact from the arms which could not be elevated above the abdomen. CT DOSE: 711.23 mGy.cm FINDINGS: Lung bases: The heart is normal in size noting trace pericardial effusion. There are small pleural effusions with dependent consolidation. A centrally necrotic subcarinal node is partially visualized and measures up to 2.1 cm in short axis. Liver: The contrast-enhanced liver is normal in size, contour, and attenuation. There is no intrahepatic biliary ductal dilatation. The hepatic veins and portal veins are patent. There are 3 hypervascular liver lesions. There is a 2.6 cm enhancing lesion in the left lobe seen on image #70. A 1.4 cm enhancing lesion in the left lobe as seen on image #83, and a 1.2 cm enhancing lesion in the right lobe as seen on image #63. The largest left lobe lesion has been present dating back to 2007 and may represent a hemangioma. Gallbladder: Surgically absent noting clips in the gallbladder fossa. Spleen: Normal in size and attenuation. Pancreas: Mild atrophic and grossly unremarkable. Adrenal glands: Unremarkable. Kidneys: The contrast enhanced kidneys are normal in size and without hydronephrosis. Both kidneys demonstrate heterogeneous enhancement. Foci of cortical scarring are noted in the left kidney. Abdominal vasculature: The abdominal aorta is normal in course and caliber. Stomach and bowel: Postoperative changes consistent with a history of Tania-en-Y gastric bypass surgery. The small bowel and colon are normal in course and caliber. The appendix is well-visualized and normal. Peritoneum: There is no intraperitoneal free air or abdominal ascites. There is a fat-containing supraumbilical hernia. Lymphadenopathy: There is centrally necrotic retroperitoneal, pelvic sidewall, and iliac chain lymphadenopathy. An aortocaval node on image #176 measures 2.7 x 1.9 cm. A node in the region of the left inguinal canal on image #360 measures 2.8 x 2.3 cm. A centrally necrotic left inguinal node on image #357 measures 1.2 cm. Pelvic viscera: The bladder wall is markedly thickened, heterogeneous, and hyperemic. Bladder diverticula are noted. There are several enhancing uterine masses. There may be an enhancing lesion involving the left ovary. This is not well delineated. Skeletal structures: The skeletal structures are osteopenic. There is chronic deformity of the bony pelvis. 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 This measures up to 5.7 cm in length. There are mild superior endplate compression deformities of T8 and T10. 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 Several lesions are identified throughout the ribs, the lumbar spine, and in the pelvis. There is a lesion within the body of L3 which causes a minimal compression deformity, with loss of the posterior cortex. There is posterior epidural extension of tumor at L3 seen on image #206. This causes at least moderate acquired compromise of the central canal. There is a pathologic fracture of the anterior left fourth rib. A lesion in the anterior right iliac wing as seen on image #304. Soft tissues: There is infiltration of the perianal soft tissues with an apparent cutaneous defect. There is also infiltration of the soft tissues inferomedial soft tissues. No organized fluid collection is identified. IMPRESSION: 1. There is spinal dysraphism, a large meningocele, and chronic deformity of the bony pelvis. 2. The bladder wall is markedly thickened and hyperemic. There are several bladder diverticula. This likely represents a neurogenic bladder. Correlate clinically and with urinalysis for evidence of cystitis. 3. The kidneys enhance heterogeneously. Correlate clinically and with urinalysis for evidence of ascending urinary tract infection/pyelonephritis. 4. 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 Correlation with the patient's oncological history will be required. 5. There is a pathologic fracture of the left anterior fourth rib. 6. There is a large lesion in the posterior aspect of the L3 vertebral with a mild compression deformity at this level. There is breakthrough of the posterior cortex and epidural extension of tumor. This likely causes at least moderate central canal stenosis. Follow-up with radiation oncology is recommended. 7. There is centrally necrotic subcarinal, retroperitoneal, iliac chain, and left inguinal lymphadenopathy. This is consistent with metastatic disease. 8. There are at least 3 hypervascular hepatic lesions identified. These are pathologically indeterminant and the largest has been present dating back to 2007. This may represent a hemangioma. Metastatic disease is not excluded. 9. There are nonspecific uterine masses, with a possible mass lesion involving the left ovary. This could represent fibroids versus neoplasm. 10. There are small pleural effusions with dependent consolidation. This could represent atelectasis versus pneumonia. Clinical correlation will be required. 11. Postoperative changes consistent with a history of Tania-en-Y gastric bypass procedure. No bowel obstruction is seen. 12. There is induration of the perianal soft tissues with an apparent overlying cutaneous defect. There is also induration of the left infragluteal soft tissues. No organized fluid collection is seen. Correlate clinically for evidence of decubitus ulceration. 13. Additional findings as above. Time Spent Attending I spent 45 minutes with greater than 50% in direct face to face interaction with the patient which included obtaining clinical information, performing a physical exam, recommending a plan of action and answering questions. MEDINA
[2019-02-07] MEDS ORDERED: AMOXICILLIN 500 MG CAP PO SCH (12:00)
[2019-02-07 15:14] VITALS: BP 110/74; PULSE 88; TEMP 97.9; O2SAT 94
--- NOTE | 2019-02-07 18:00 | Discharge Summary ---
Date of Service February 07, 2019 Admission HPI Per Admitting Provider The patient is a 48-year-old female with a past medical history including metastatic bladder cancer, who had presented to the emergency department the previous evening with symptoms of UTI consisting of burning and back pain. It was felt that a urine culture is most likely going to grow enterococcus again as noted, but because of recurrence of the symptoms, she underwent a CT of the abdomen pelvis.the CT was significant for worsening metastatic disease, and in particular showed a large lesion in the posterior aspect of the L3 vertebrae with a mild compression deformity there, and breakthrough of the posterior cortex and epidural extension of the tumor, causing at least moderate central canal stenosis, with follow-up suggested with radiation oncology. Admission Exam Per Admitting Provider The patient is awake, alert and oriented 3, normocephalic and atraumatic, lying in bed and in no acute distress. HEENT--PERRL, EOMI, mucous membranes and oropharynx dry. Neck--supple. No JVD. No bruits. Thyroid normal, trachea midline, no adenopathy. Heart--normal S1 and S2. No murmurs, rubs or gallops. Lungs--clear bilaterally, no respiratory distress, no accessory muscle use. Abdomen--normal bowel sounds and soft. Nontender. Nondistended. Extremities--no cyanosis or clubbing. Left BKA. Dermatologic--normal skin turgor, normal color, no abnormal lymph nodes, no rash. Neurologic--cranial nerves II through XII grossly intact. Rheumatologic--limited due to spina bifida Psychiatric--normal affect. Principal Diagnosis Complicated UTI Metastatic Bladder Cancer Discharge Exam General: Alert, oriented. No acute distress, laying in bed using ipad. Skin: No noted rashes or bruises Psych: Somewhat subdued mood and affect Neuro: No gross deficits, left bka amputation but able to move all extremities. HEENT: NC/AT, Chest: Nontender to palpation. CV: RRR, Normal s1, s2. No murmurs appreciated Resp: Breath sounds clear bilaterally, no increased effort of breathing. No crackles/rhonchi/rales. Abdomen:Soft, nontender, nondistended. No guarding. No organomegaly appreciated. Extremities: BKA left leg amputation. Discharge Data Allergies Allergy/AdvReac Type Severity Reaction Status Date / Time vancomycin Allergy Severe MATT Verified 02/06/19 22:24 citalopram Allergy Intermediate Hives Verified 02/06/19 22:24 adhesive tape AdvReac Mild Rash Verified 02/06/19 22:24 Consultations 02/06/19 20:25 ED Decision to Admit Stat 02/06/19 23:27 Consult Case Management - Discharge Planning Routine 02/07/19 08:06 Consult Radiation Oncology Routine Ordered Studies 02/06/19 19:45 CT abd pelvis IV con only Stat 02/07/19 11:03 CT guide rad therapy breast Routine Hospital Course (1) UTI (urinary tract infection): Ms. Chen is a 48yo with a PMHx significant for bladder cancer and chronic UTIs who was admitted for new metastases to the spine and a new UTI. UTI Pt symptomatic with dysuria, even on discharge. Afebrile, no increased WBC. UA with blood, nitrites, leukocyte esterase with Urine Cx growing Enterococcus faecalis. Treated with Rocephin and Daptomycin before switched to PO amoxicillin based on sensitivities. Discharged with 9 days of PO amoxicillin 500mg TID f/u with PCP suggested. New metastases likely secondary to bladder cancer -Pt with Hx of bladder cancer -CT abdomen/pelvis suggestive of new metastatic disease to L3 vertebra -Radiation oncology consulted- she received treatment planning with CT simulation while hospitalized and will begin palliative radiation next week. -Pt will be contacted to arrange that. -followup with pcp recommended Continue other home medications before admission. Total Time Total Time Spent Total Time Spent (In Minutes): <30 Discharge Plan Discharge Items Patient Disposition: Home - Self-Care Reason For Visit: MDR UTI,EPIDURAL EXTENSION OF METASTASES Discharge Diagnosis: Complicated UTI Metastatic Bladder Cancer Activity: Per Instructions section Non-emergency contact: Primary Care Provider and Oncologist Call non-emergency contact if: your symptoms worsen and you have a fever Follow-up/Referrals: Flor Salinas DO [Primary Care Provider] - Diet: Regular Addtl Attending Provider Instructions: Ms. Chen, you were admitted to [facility] for a recurrent urinary tract infection, and unfortunately, it was noted that you have metastatic bladder cancer to your spine. For your bladder infection, we treated you here with IV antibiotics and will be discharging you on oral amoxicillin to take at home. Please continue to take it for the next 9 days for your UTI, starting tonight. Please follow up with your radiation oncologist as scheduled. They will call you to set that up. Should your symptoms return or worsen, please seek emergent care once more. It was a pleasure taking care of you during your stay here! Pending Studies at Discharge: No Stand-Alone Forms: My [facility], Opioid Pain Management, Smoking Cessation Medications and DC Order Prescriptions: New amoxicillin 500 mg Capsule 500 mg PO Q8H 9 Days Qty: 27 RF: 0 oxycodone [Roxicodone] 5 mg tablet 5 mg PO Q6H PRN (Reason: pain) Qty: 20 RF: 0 Continued (DME) CPAP Machine Misc See Dose Instructions .ROUTE .MEDSUPPLY Qty: 1 RF: 0 (DME) CPAP Supplies Misc See Dose Instructions .ROUTE .MEDSUPPLY Qty: 1 RF: 0 hydroxyzine HCl 25 mg tablet 25 mg PO TID PRN (Reason: itching) Qty: 30 RF: 1 duloxetine [Cymbalta] 30 mg capsule,delayed release(DR/EC) 30 mg PO QAM Qty: 30 RF: 5 naproxen 250 mg tablet 250 mg PO Q12H PRN (Reason: Pain) Qty: 60 RF: 1 oxycodone 5 mg tablet 5 mg PO Q6H PRN (Reason: pain) Qty: 20 RF: 0 cyanocobalamin (vitamin B-12) 1,000 mcg/mL solution 1,000 mcg SQ .COMPLEX RF: 0 multivitamin tablet,chewable 1 tab PO QAM RF: 0 albuterol sulfate 90 mcg/actuation aerosol powdr breath activated 1 inh INHALATION QID PRN (Reason: SHORT OF BREATH) Qty: 1 RF: 0 levothyroxine 75 mcg tablet 75 mcg PO QAM Qty: 30 RF: 0 oxybutynin chloride 5 mg tablet 5 mg PO BID Qty: 60 RF: 0 magnesium oxide 400 mg (241.3 mg magnesium) tablet 400 mg PO BID RF: 0 ondansetron HCl 8 mg tablet 8 mg PO Q8H PRN (Reason: Nausea) RF: 0 venlafaxine 37.5 mg capsule,extended release 24hr 37.5 mg PO HS RF: 0 prochlorperazine maleate 10 mg tablet 10 mg PO QAM RF: 0 phenazopyridine [Pyridium] 200 mg tablet 200 mg PO TID PRN (Reason: UTI) RF: 0 baclofen 5 mg tablet 5 mg PO BID PRN (Reason: muscle spasm) 3 Days Qty: 6 RF: 2 zinc 50 mg Tablet 50 mg PO QAM RF: 0 Keytruda 25 mg/mL Solution 0 mg IV UD RF: 0 Marya-Sequels (iron-vit c) 200 mg (65 mg iron)-25 mg tablet extended release 1 tab PO QAM RF: 0 famotidine [Pepcid] 40 mg tablet 40 mg PO DAILY PRN (Reason: gerd) RF: 0 ergocalciferol (vitamin D2) [Vitamin D2] 50,000 unit capsule 50,000 unit PO WE RF: 0 sennosides [Senokot] 8.6 mg Tablet 17.2 mg PO QAM PRN (Reason: constipation) Qty: 30 RF: 0 folic acid 1 mg Tablet 1 mg PO QAM Qty: 30 RF: 1 enoxaparin 60 mg/0.6 mL Syringe 60 mg subcut Q12H Qty: 100 RF: 1 Discharge Orders: Discharge Order (Routine); Ordered 02/07/19 Ordered By: Semaj Glaser/Other Patient Handouts: UTI Admission Data Admit Date/Time: 02/06/19 22:22 Attending Provider: Semaj Alexis Admit Provider: Khanh Walker Primary Care Provider: Flor Salinas Other Providers: Khanh Walker ; Luis Fernando Hawk Other Interventions: Discharge Summary Assessment (RN) Last Done: 02/07/19 17:13 DC Date/Time DO NOT enter until pt leaves facility: 02/07/19 18:11 Supervising Physician Co-Signing Physician Notes I personally examined the patient and verified all virk points of history and exam, discussed case, and agree with decision making with Dr Herbert. feeling better and would very much like to go home discussed urine culture results - she was quite pleased that bacteria is sensitive to fairly easy to take abx. is set for outpt XRT. vitals noted nad heent nc at mmm breathing unlabored no accessory muscles good effort skin no rashes no pallor or icterus recurrent UTI - fortunately sensitive to PCN, ampicillin - will dc home on amoxicillin to treat for complicated UTI bladder cancer now with mets to spine - for XRT - set up by rads/onc. stable for home, otherwise as above Resident Activity Tracking Resident Involvement: Resident Care Provided Care Provided: Adult Hospital Medicine
--- NOTE | 2019-02-07 18:48 | Billing Data ---
Coding Level of Care Code D/C Day Management <30 mins
[2019-02-07] MEDS ORDERED: DAPTOmycin 225 MG in SYRINGE 0 ML IV SCH (20:00)
[2019-02-07] MEDS ORDERED: VENLAFAXINE HCL XR 37.5 MG CAPXR PO SCH (21:00)
[2019-02-07] MEDS ORDERED: cefTRIAXone SODIUM 2,000 MG/70 ML BAG IV SCH (22:00)
== END 2019-02-07 18:11 | disposition home or self-care (01) | DRG 689 ==
LOC: ED 18:26 → 3N 22:22 → SUATTDRO 22:22 → 3N 23:04

== ENCOUNTER 2019-03-08 13:41 | Inpatient (IN) ==
[2019-03-08] MEDS ORDERED: NALOXONE HCL 0.4 MG/1 ML VIAL/CARP ONE (13:42)
[2019-03-08] MEDS ORDERED: SODIUM CHLORIDE 0.9% 1000ML 1,000 ML IV ONE ×3 (13:47→15:06)
[2019-03-08] MEDS ORDERED: ACETAMINOPHEN 1000 MG/100 ML IV IV ONE (14:15)
[2019-03-08 14:16] LABS: iSTAT Creatinine 1.1 mg/dl (0.6-1.3); iSTAT Hemoglobin 9.9 g/dl (12.0-16.0); iSTAT Ionized Calcium 2.07 mmol/l (1.12-1.32)
[2019-03-08] MEDS ORDERED: CEFEPIME 2,000 MG/20 ML VIAL IV STA (14:21)
[2019-03-08 14:28] LABS: Basophils # (auto) 0.02 K/uL (0-0.2); Basophils % (auto) 0.2 %; Eosinophils # (auto) 0.04 K/uL (0-0.5); Eosinophils % (auto) 0.4 %; Hematocrit (blood only) 28.9 % (37-47); Hemoglobin 9.4 g/dL (12.0-16.0); Immature Granulocytes # (auto) 0.29 K/uL (0.00-0.02); Immature Granulocytes % (auto) 2.6 %; Mean Corpuscular Hemoglobin 29.7 pg (25-34); Mean Corpuscular Hgb Conc 32.5 g/dL (32-36); Mean Corpuscular Volume 91.2 fL (80-100); Mean Platelet Volume 9.4 fL (7.4-10.4); Monocytes # (auto) 0.51 K/uL (0.11-0.59); Monocytes % (auto) 4.6 %; Neutrophils # (auto) 9.43 K/uL (1.4-6.5); Neutrophils % (auto) 84.2 %; Nucleated RBC # (auto) 0.03 K/uL (0-0); Nucleated RBC % (auto) 0.3 %; Platelet Count 263 K/uL (130-400); RDW Coefficient of Variation 14.7 % (11.5-14.5); RDW Standard Deviation 48.8 fL (36.4-46.3); Red Blood Count 3.17 M/uL (4.2-5.4); White Blood Count 11.19 K/uL (4.8-10.8)
[2019-03-08 14:29] LABS: Base Excess VBG -0.1 mEq/L; Oxygen Saturation VBG 95.3 %; pH VBG 7.48 (7.36-7.41)
[2019-03-08] MEDS ORDERED: LINEZOLID 600 MG/300 ML D5W IV SCH (15:00)
--- NOTE | 2019-03-08 15:04 | XRay Report ---
XR chest 1V portable CLINICAL HISTORY: Altered mental status. COMPARISON STUDY: Chest CT January 17, 2019. Chest radiograph February 05, 2019. FINDINGS: Lung volumes are diminished. Patient is rotated. Left internal jugular central line remains in place. There is no lobar consolidation or evidence for pulmonary edema. Bibasilar opacities impro cayla. Cardiomediastinal silhouette is stable with mild mediastinal widening. Cardiac size is normal. A nterior left fourth rib fracture is noted. This is minimally displaced and is probably subacute. IMPRESSION: 1. Minimal left basilar opacity, improved since exam of February 05, 2019. Low lung volumes. 3. Suspected subacute minimally displaced anterior left fourth rib fracture. No pneumothorax. 3. Low lung volumes. ACT 112: Negative or not required by law. Electronically signed by: Leon Srinivasan M.D. 03/08/2019 3:03 PM
[2019-03-08 15:09] LABS: INR 1.7 (0.9-1.1); Partial Thromboplastin Ratio 1.8; Prothrombin Time 16.5 Seconds (9.0-12.0)
[2019-03-08 15:09] LABS: Appearance Urine Turbid (Clear); Bacteria Urine Automated 4+ (Negative); Blood Urine 3+ (Negative); Color Urine Dark Yellow; Epithelial Cell Urine Auto >30 /lpf (0-5); Glucose Urine UA Negative (Negative); Ketones Urine Negative (Negative); Leukocyte Esterase Urine 3+ (Negative); Nitrite Urine Negative (Negative); Protein Urine 2+ (Negative); Specific Gravity Urine 1.017 (1.000-1.030); Urobilinogen Urine Negative (Negative); WBC Urine Automated >30 /hpf (0-5)
[2019-03-08 15:11] LABS: Bilirubin Urine Negative (Negative); Ictotest Urine Negative (Negative)
[2019-03-08 15:14] LABS: Partial Thromboplastin Time 49.5 Seconds (21.0-31.0)
--- NOTE | 2019-03-08 15:16 | History & Physical Report ---
Date of Service March 08, 2019 Assessment & Plan (1) Complicated UTI (urinary tract infection): This is likely source of sepsis. Patient will be admitted to the ICU under sepsis protocol. Patient was given 2 g of cefepime in the emergency room, this can be continued for now. Will defer further orders of medications to ICU team. Patient's blood pressure is improved with aggressive hydration, will continue per protocol. (2) Septic shock: Improved as noted above with antibiotics and aggressive fluid resuscitation. Defer further to ICU team. (3) Bladder cancer: I did review some of the old documentation regarding this. There is a CT scan of the head that did not show any metastasis. Continue to monitor mental status, consider further imaging versus oncology consultation depending on course. (4) Encephalopathy, toxic: Monitor mental status, confusion will hopefully improve as blood pressure improves and infection is treated. (5) DVT (deep venous thrombosis): Per documentation, patient has a previous history of a DVT/PE. She is on full dose Lovenox which will be continued. 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 The patient can provide no history. I did get history from the emergency room physician. Family was present previously but has since left prior to my evaluation. Per the ER physician, the patient had been altered through most of the day. The family noted that she was unresponsive during holiday dinner. They brought her to the emergency room when the ER doctor noted that the patient was covered in urine and feces. At the time of her initial evaluation, her heart rate was in the 170s with a blood pressure of 50 over palp. Patient was treated emergently with aggressive IV hydration per sepsis protocol. Lactic acid was over 4, but has been trending down on repeat. At the time my evaluation, a Aguilar catheter just been placed with very sedimented, purulent urine. The patient was awake but very disoriented and cannot answer questions or follow commands. Blood pressure improved into the low 100s with a heart rate of around 100. Patient was saturating well on 2 L. Allergies Allergy/AdvReac Type Severity Reaction Status Date / Time vancomycin Allergy Severe MATT Verified 03/08/19 14:02 citalopram Allergy Intermediate Hives Verified 03/08/19 14:02 adhesive tape AdvReac Mild Rash Verified 03/08/19 14:02 Home Medications Home Medications Medication Instructions Recorded Confirmed Type zinc 50 mg PO QAM 08/15/18 03/08/19 History albuterol sulfate 90 mcg/actuation 1 inh INHALATION QID PRN #1 ea 09/21/18 03/08/19 Rx breath activated powder inhaler cyanocobalamin (vitamin B-12) 1,000 mcg SQ .COMPLEX 09/21/18 03/08/19 History 1,000 mcg/mL injection solution multivitamin 1 tab PO QAM 09/21/18 03/08/19 History CPAP Machine #1 ea 01/04/19 02/20/19 Rx miscellaneous medical supply #1 ea 01/04/19 02/20/19 Rx ergocalciferol (vitamin D2) 50,000 unit PO WE 01/17/19 03/08/19 History [Vitamin D2] duloxetine 30 mg capsule,delayed 30 mg PO QAM #30 cap 01/18/19 03/08/19 Rx release hydroxyzine HCl 25 mg tablet 25 mg PO TID PRN #30 tab 01/18/19 03/08/19 Rx enoxaparin 60 mg SUBCUT Q12H #100 ml 01/20/19 03/08/19 Rx folic acid 1 mg PO QAM #30 tab 01/20/19 03/08/19 Rx sennosides [Senokot] 17.2 mg PO QAM PRN #30 tab 01/20/19 03/08/19 Rx magnesium oxide 400 mg (241.3 mg 400 mg PO BID tab 01/24/19 03/08/19 History magnesium) tablet ondansetron HCl 8 mg tablet 8 mg PO Q8H PRN tab 01/24/19 03/08/19 History Marya-Sequels (iron-vit c) 1 tab PO QAM 02/05/19 03/08/19 History naproxen 250 mg tablet 250 mg PO Q12H PRN #60 tab 02/15/19 03/08/19 Rx oxycodone 10 mg tablet 10 mg PO TID #30 tab 02/24/19 03/08/19 Rx oxybutynin chloride 15 mg PO DAILY 03/08/19 03/08/19 History Past Med/Surg History Medical History Amputee Anxiety Asthma Rarely use inhaler. Only during allergy seasons. Last use was about 3 weeks ago. 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 05/20/12) s/p SOUBRETTE shunt AND REPLACED AT AGE 2 Hypothyroidism Migraine HX OF Neurogenic bladder ST CATH 6X DAILY AND PRN Osteoarthritis Progressive lipodystrophy Seasonal allergies REASON FOR INHALER RX (HAS NOT USED FOR A LONG TIME) Sleep apnea Spina bifida of lumbar region Urinary incontinence Vitamin D deficiency Surgical History H/O transurethral destruction of bladder lesion TURBT 08/17/18 History of amputation below knee 2/2 osteomylitis History of amputation below knee History of cystoscopy History of dilatation and curettage UTERINE ABLATION History of esophagogastroduodenoscopy (EGD) History of left below knee amputation secondary to osteomyelitis from traumatic injury History of open reduction and internal fixation (ORIF) procedure LEFT LEG History of reduction of breast (Resolved 05/20/12) History of surgery MULTIPLE SURGERIES ON LEFT LEG (I&D'S) History of tooth extraction Hx laparoscopic cholecystectomy Hx of bilateral breast reduction surgery S/P panniculectomy Status post gastric bypass for obesity Family History Grandmother (Paternal) Diabetes Grandfather (Paternal) Diabetes Coronary heart disease Aunt Diabetes Uncle Diabetes Uncle Diabetes Other No significant family history Social History Preferred Language: Wolof Communication Ability: Effective Visual Impairment: No Limitations Hearing Ability: Normal 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 Beliefs That Will Affect Care: None marital status: Current Living Situation: Spouse current occupational status: disabled Feels Safe at Home: Yes Smoking Status: Unknown if ever smoked Hx Alcohol Use: Yes Alcohol type: beer and wine Hx Substance Use: No Childhood Exposure to Second-Hand Smoke: Yes caffeine: Yes Dental Care, Regularly: No Physical Activity Frequency: Does not Exercise Seatbelt Use: sometimes Sunscreen Use: Yes Review of Systems Review of Systems: Unobtainable due to reduced consciousness Physical Exam Constitutional: + ill appearing and + altered mental status Neck: trachea midline, no thyromegaly Respiratory: normal respiratory effort Auscultation: lungs clear to auscultation bilaterally Very limited exam Cardiovascular: Rate/Rhythm: regular rhythm Heart Sounds: normal S1 and normal S2 Gastrointestinal (Abdomen): Percussion/Palpation: abdomen soft; abdomen nontender, no guarding and abdomen not rigid Musculoskeletal: Extremities: + amputation noted Neurologic: awake and + confused Genitourinary: Aguilar catheter with purulent urine Results & Data Vital Signs (Past 12 Hours) Vital Signs Temp Pulse Pulse Resp BP BP Pulse Ox 03/08/19 15:03 100 H 14 94/61 L 100 03/08/19 14:56 109 H 17 100 03/08/19 14:54 109 H 27 H 92/60 L 100 03/08/19 14:50 113 H 19 91 03/08/19 14:45 34 H 93 03/08/19 14:40 113 H 20 104/63 97 03/08/19 14:35 115 H 20 107/70 97 03/08/19 14:30 116 H 27 H 105/66 96 03/08/19 14:25 117 H 23 105/67 96 03/08/19 14:20 115 H 18 94/65 L 95 03/08/19 14:17 128 H 40 H 94 03/08/19 14:16 131 H 23 107/66 94 03/08/19 14:14 131 H 25 H 81/54 L 96 03/08/19 14:11 136 H 20 78/48 L 96 03/08/19 14:10 139 H 18 96 03/08/19 14:05 160 H 35 H 92 03/08/19 14:00 167 H 17 97 03/08/19 13:59 38.7 C H 158 H 36 H 50/40 L 97 03/08/19 13:55 175 H 18 95 03/08/19 13:51 169 H 28 H 47/39 L 100 03/08/19 13:50 169 H 38 H 98 03/08/19 13:49 168 H 27 H 97 03/08/19 13:46 168 H 36 H 97 PG Care Time/CCT Total # of Minutes Spent Total Time Spent with Patient: Total time spent is greater than 50% in coordination of care (as documented) at patient's floor/unit and/or counseling patient:
[2019-03-08 15:17] LABS: Alanine Aminotransferase 17 U/L (12-78); Albumin Level 1.2 gm/dl (3.4-5.0); Alkaline Phosphatase 144 U/L (45-117); Aspartate Aminotransferase 31 U/L (15-37); BUN Creatinine Ratio 41.4 (10-20); Bilirubin Direct < 0.1 mg/dl (0-0.2); Bilirubin,Total 0.3 mg/dl (0.2-1); Blood Urea Nitrogen 36 mg/dl (7-18); Calcium 12.3 mg/dl (8.5-10.1); Carbon Dioxide 23 mmol/L (21-32); Chloride 107 mmol/L (98-107); Creatine Kinase 231 U/L (26-192); Est GFR (African American) 90.7; Est GFR (Non-African American) 78.2; Glucose 119 mg/dl (70-99); Lipase 133 U/L (73-393); Magnesium 1.1 mg/dl (1.8-2.4); Potassium 3.3 mmol/L (3.5-5.1); Sodium 137 mmol/L (136-145); Troponin I 0.162 ng/ml (0-0.045)
[2019-03-08] MEDS: MAGNESIUM SULFATE / D5W 1 GM/100 ML BAG IV SCH ×2 (15:24→16:31)
[2019-03-08 15:26] LABS: RBC Urine Automated >30 /hpf (0-4)
[2019-03-08] MEDS: NOREPINEPHRINE BIT INJ 8 MG in DEXTROSE 5% 500 ML IV SCH (15:30)
--- NOTE | 2019-03-08 16:22 | CT Scan Report ---
CT OF THE HEAD WITHOUT CONTRAST CLINICAL HISTORY: Altered mental status. COMPARISON STUDY: No previous studies for comparison. CT DOSE: 994.59 mGy.cm TECHNIQUE: Helical axial images of the head were obtained without IV contrast. Automated exposure con trol was utilized for the study. A dose lowering technique was utilized adhering to the principles o f ALARA. FINDINGS: No acute intracranial hemorrhage, midline shift or mass effect is present. Asymmetric promi nence of the extra-axial space overlying the right cerebral hemisphere is probably chronic. There is moderate dilatation of the lateral ventricles, most pronounced within the occipital horns. The calibe r of the fourth ventricle is normal. There is minimal dilatation of the third ventricle. A left poste rior approach ventriculostomy catheter is in place. Tip is within the body of the right lateral ventr icle. The basilar cisterns are patent. There are no findings to suggest acute dural sinus thrombosis or acute territorial infarct. Multiple indeterminate lucent calvarial lesions are noted, including a 1.2 cm left occipital bone lesion on image 13. Sinuses are clear. There is no significant mastoid flu id. There is no calvarial fracture. IMPRESSION: 1. No acute intracranial hemorrhage. 2. Moderate dilatation of the lateral ventricles with left-sided ventriculostomy catheter in place. Comparison with prior head CT/MRI, if available, would be of benefit. However, these findings are lik vishal chronic. No definite acute intracranial findings. 3. Multiple small indeterminate lytic calvarial lesions. ACT 112: Negative or not required by law. Electronically signed by: Leon Srinivasan M.D. 03/08/2019 4:21 PM
[2019-03-08] MEDS ORDERED: ICU PROTOCOL FOR HYPERGLYCEMIA PRN (16:42)
[2019-03-08] MEDS ORDERED: MAGNESIUM SULFATE / D5W 1 GM/100 ML BAG IV ONE (17:20)
[2019-03-08] MEDS ORDERED: SODIUM CHLORIDE 0.9% 1000ML 1,000 ML IV SCH (17:30)
--- NOTE | 2019-03-08 17:41 | Communication Note ---
Date of Service: March 08, 2019 Critical CARE addendum: Pocus: Heart: Hyperdynamic left ventricle, mild pericardial effusion, normal RVOT, IVC less than 1 cm and collapsible. Lungs: No B-lines appreciated bilaterally anteriorly and posteriorly. No pleural effusion. Abdomen: No peritoneal fluid appreciated, bladder empty Please look at the images separately.
[2019-03-08] MEDS: LINEZOLID 600 MG/300 ML BAG IV SCH (17:43)
--- NOTE | 2019-03-08 17:48 | Critical Care Consultation ---
Date of Consultation March 08, 2019 Assessment & Plan (1) Septic shock: --Septic shock Likely secondary to urine tract infection --> previous urine cultures grew E. coli and Enterococcus faecalis which were sensitive to penicillin --> continue with cefepime give 1 dose of linezolid given the patient is allergic to vancomycin Follow-up septic work-up, urine culture, procalcitonin is greater than 200, CRP: 10.3 Patient got total of 2 L in the ER. Heart is still hyperdynamic with collapsible IVC cold extremities will give patient 1 more liter of normal saline Patient is on norepinephrine for pressure support keep map greater than 65 --Hypercalcemia Could be secondary to mets to the spine, given that his elevated alk phos. Follow-up PTH Continue with hydration The calcium is still high and PTH is suppressed will consider biphosphonate along with IV fluids hourly --Metabolic encephalopathy Secondary to sepsis in addition to hypercalcemia Continue with antibiotics give IV fluids Mental status is better than at the time of presentation to the ER. Aspiration precautions -- Hx of metastatic bladder cancer On palliative radiation therapy --Severe protein calorie malnutrition Albumin is only 1.2 -- ESMER c/w CPAP with pressure of 11cm --History of spina bifida at Patient has atrophy of the right lower extremity Has ventricular shunt --History of recent DVT/PE On Lovenox therapeutic twice daily -- DNI/NO CPR Patient is a conditional code. Does not want to be resuscitated with CPR or intubated. She is okay with giving antibiotics and being on vasopressor if need be. (2) Encephalopathy, toxic: (3) Pulmonary emboli: (4) Bladder cancer: History of Present Illness Attending Physician: Tate Ji DO History of Present Illness 48-year-old female with past medical history of metastatic bladder cancer on palliative radiation, recurrent UTI with sepsis, spina bifida was brought into the ER because of altered mental status and lethargy by the family. As per the family patient has been not feeling well since last couple of days complaining of burning sensation on urination. And suprapubic pain. Patient is nauseous but not throwing up. In the ER patient's systolic blood pressure was in the high 50s initially with heart rate of 150s. Patient was given 1.5 L of bolus to which she responded and her heart rate also went down to 110s. At the time of examination when the patient was in the ICU patient's map was 75 while the patient was on Levophed. Patient was more alert answering questions appropriately. Patient denies any chest pain, no dizziness, no headache, no blurry vision, no nausea vomiting. Patient did complain of severe tenderness along with dysuria and polyuria. Denies any diarrhea. Patient also complains of epigastric tenderness. Patient denied any palpitation. Patient is a poor historian. history obtained from previous records and ER chart. Allergies Allergy/AdvReac Type Severity Reaction Status Date / Time vancomycin Allergy Severe MATT Verified 03/08/19 14:02 citalopram Allergy Intermediate Hives Verified 03/08/19 14:02 adhesive tape AdvReac Mild Rash Verified 03/08/19 14:02 Home Medications Home Medications Medication Instructions Recorded Confirmed Type zinc 50 mg PO QAM 08/15/18 03/08/19 History albuterol sulfate 90 mcg/actuation 1 inh INHALATION QID PRN #1 ea 09/21/18 03/08/19 Rx breath activated powder inhaler cyanocobalamin (vitamin B-12) 1,000 mcg SQ .COMPLEX 09/21/18 03/08/19 History 1,000 mcg/mL injection solution multivitamin 1 tab PO QAM 09/21/18 03/08/19 History CPAP Machine #1 ea 01/04/19 02/20/19 Rx miscellaneous medical supply #1 ea 01/04/19 02/20/19 Rx ergocalciferol (vitamin D2) 50,000 unit PO WE 01/17/19 03/08/19 History [Vitamin D2] duloxetine 30 mg capsule,delayed 30 mg PO QAM #30 cap 01/18/19 03/08/19 Rx release hydroxyzine HCl 25 mg tablet 25 mg PO TID PRN #30 tab 01/18/19 03/08/19 Rx enoxaparin 60 mg SUBCUT Q12H #100 ml 01/20/19 03/08/19 Rx folic acid 1 mg PO QAM #30 tab 01/20/19 03/08/19 Rx sennosides [Senokot] 17.2 mg PO QAM PRN #30 tab 01/20/19 03/08/19 Rx magnesium oxide 400 mg (241.3 mg 400 mg PO BID tab 01/24/19 03/08/19 History magnesium) tablet ondansetron HCl 8 mg tablet 8 mg PO Q8H PRN tab 01/24/19 03/08/19 History Marya-Sequels (iron-vit c) 1 tab PO QAM 02/05/19 03/08/19 History naproxen 250 mg tablet 250 mg PO Q12H PRN #60 tab 02/15/19 03/08/19 Rx oxycodone 10 mg tablet 10 mg PO TID #30 tab 02/24/19 03/08/19 Rx oxybutynin chloride 15 mg PO DAILY 03/08/19 03/08/19 History Patient History Medical History Amputee Anxiety Asthma Rarely use inhaler. Only during allergy seasons. Last use was about 3 weeks ago. 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2 Hypothyroidism Migraine HX OF Neurogenic bladder ST CATH 6X DAILY AND PRN Osteoarthritis Progressive lipodystrophy Seasonal allergies REASON FOR INHALER RX (HAS NOT USED FOR A LONG TIME) Sleep apnea Spina bifida of lumbar region Urinary incontinence Vitamin D deficiency Surgical History H/O transurethral destruction of bladder lesion TURBT 08/17/18 History of amputation below knee 2/2 osteomylitis History of amputation below knee History of cystoscopy History of dilatation and curettage UTERINE ABLATION History of esophagogastroduodenoscopy (EGD) History of left below knee amputation secondary to osteomyelitis from traumatic injury History of open reduction and internal fixation (ORIF) procedure LEFT LEG History of reduction of breast (Resolved 05/20/12) History of surgery MULTIPLE SURGERIES ON LEFT LEG (I&D'S) History of tooth extraction Hx laparoscopic cholecystectomy Hx of bilateral breast reduction surgery S/P panniculectomy Status post gastric bypass for obesity Family History Grandmother (Paternal) Diabetes Grandfather (Paternal) Diabetes Coronary heart disease Aunt Diabetes Uncle Diabetes Uncle Diabetes Other No significant family history Social History Preferred Language: Niuean Communication Ability: Effective Visual Impairment: No Limitations Hearing 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: 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 Beliefs That Will Affect Care: None marital status: Current Living Situation: Spouse current occupational status: disabled Other Information That Helps Us Care for You: No Feels Safe at Home: Yes Safety Concerns: Feels Safe At This Time Smoking Status: Never smoker Tobacco Type: cigarettes ; Cigarettes Per Day: 10 CIG IN THE PAST MONTH ; Second Hand Exposure: Yes ; Hx Alcohol Use: No Hx Substance Use: No Childhood Exposure to Second-Hand Smoke: Yes caffeine: Yes Dental Care, Regularly: No Physical Activity Frequency: Does not Exercise Seatbelt Use: sometimes Sunscreen Use: Yes Review of Systems Review of Systems: All systems reviewed & are unremarkable except as noted in HPI & below Physical Exam Physical Exam: Constitutional: No acute distress HEENT: EOMI, PERRLA, skull deformity appreciated Respiratory system: Good air entry bilaterally, no wheeze, no rhonchi, no crackles CVS: S1-S2 positive, no murmurs or gallops, tachycardia Abdomen: Soft, positive suprapubic tenderness, no rebound, mild epigastric tende rness, nondistended, positive bowel sounds x4 Extremities: +2 pulses bilateral radialis, decreased pulse right lower extremity, left BKA, cold right lower extremity, no edema, no cyanosis Neuro: Awake alert oriented to place and self and time. Patient is slow to respond Psych: Normal mood and affect G/U: Positive [place] Skin: + turgor decreased Lymphatic: no cervical or axillary lymphadenopathy Results & Data Vital Signs (Past 12 Hours) Vital Signs Temp Pulse Pulse Resp BP BP Pulse Ox 03/08/19 17:00 35.8 C L 113 H 22 98 03/08/19 16:55 105 H 26 H 92 03/08/19 16:54 107 H 21 91/68 L 93 03/08/19 16:50 108 H 22 93 03/08/19 16:45 110 H 21 97 03/08/19 16:41 110 H 22 97 03/08/19 16:40 108 H 19 95/66 L 100 03/08/19 16:35 106 H 26 H 100 03/08/19 16:30 35.8 C L 112 H 16 161/88 H 99 03/08/19 15:56 105 H 18 111/78 100 03/08/19 15:41 105 H 18 109/78 100 03/08/19 15:36 103 H 14 93/64 L 100 03/08/19 15:33 105 H 14 95/60 L 100 03/08/19 15:28 37.2 C 109 H 18 75/64 L 100 03/08/19 15:12 106 H 14 78/58 L 100 03/08/19 15:03 100 H 14 94/61 L 100 03/08/19 14:56 109 H 17 100 03/08/19 14:54 109 H 27 H 92/60 L 100 03/08/19 14:50 113 H 19 91 03/08/19 14:45 34 H 93 03/08/19 14:40 113 H 20 104/63 97 03/08/19 14:35 115 H 20 107/70 97 03/08/19 14:30 116 H 27 H 105/66 96 03/08/19 14:25 117 H 23 105/67 96 03/08/19 14:20 115 H 18 94/65 L 95 03/08/19 14:17 128 H 40 H 94 03/08/19 14:16 131 H 23 107/66 94 03/08/19 14:14 131 H 25 H 81/54 L 96 03/08/19 14:11 136 H 20 78/48 L 96 03/08/19 14:10 139 H 18 96 03/08/19 14:05 160 H 35 H 92 03/08/19 14:00 167 H 17 97 03/08/19 13:59 38.7 C H 158 H 36 H 50/40 L 97 03/08/19 13:55 175 H 18 95 03/08/19 13:51 169 H 28 H 47/39 L 100 03/08/19 13:50 169 H 38 H 98 03/08/19 13:49 168 H 27 H 97 03/08/19 13:46 168 H 36 H 97 03/08/19 14:18 VBG pH 7.48 H VBG pCO2 32 L VBG pO2 78 VBG HCO3 23 VBG O2 Saturation 95.3 VBG Base Excess -0.1 03/08/19 14:18 03/08/19 14:39 Coding Level of Care Code Critical Care 1st 30-74 mins Diagnoses Septic shock A41.9; R65.21 Encephalopathy, toxic G92 Pulmonary emboli I26.99 Pulmonary embolism type: unspecified Chronicity: unspecified Acute cor pulmonale presence: unspecified Bladder cancer C67.9 Bladder location: unspecified site Time Spent (min) 70 (1) Pulmonary emboli Pulmonary embolism type: unspecified Chronicity: unspecified Acute cor pulmonale presence: unspecified Qualified Code(s): I26.99 - Other pulmonary embolism without acute cor pulmonale (2) Bladder cancer Bladder location: unspecified site Qualified Code(s): C67.9 - Malignant neoplasm of bladder, unspecified
[2019-03-08] MEDS: POTASSIUM CHLORIDE / WTR 20 MEQ/100 ML PLCT IV SCH ×2 (18:35→20:23)
--- NOTE | 2019-03-08 18:46 | Emergency Department Note ---
Entered by Dunia Fung acting as a scribe for History of Present Illness General Chief complaint: Unresponsive Time Seen by Provider: 03/08/19 13:44 Source: EMS Mode of arrival: EMS Limitations: other (semi-responsiveness) History of Present Illness Provider complaint: Semi-responsive Onset (ago): hour(s) (this morning) Location: head Radiation: non-radiation Pain Consistency: + other (episode) Quality: + other (semi-responsiveness) The patient is a 48 year old female with a history of bladder cancer, amputation below left knee, diabetes, dyslipidemia, GERD, hypothyroidism, lipodystrophy, transurethral destruction of bladder lesion, breast reduction, left leg surgery, cholecystectomy, panniculectomy, gastric bypass, anxiety, depression, chronic UTI, and hydrocephalus who presents to the Emergency Room with complaints of an episode of semi-responsiveness starting this morning. Per EMS, the patient was found semi-responsive in her car. EMS reports that her had taken her to her son's but she became overwhelmed and went home. The patient reportedly became worse when she arrived at home. EMS states that the was adamant that there were no drugs involved. HPI limited secondary to semi-responsiveness. Home Medications Home Medications Medication Instructions Recorded Confirmed Type zinc 50 mg PO QAM 08/15/18 03/08/19 History albuterol sulfate 90 mcg/actuation 1 inh INHALATION QID PRN #1 ea 09/21/18 03/08/19 Rx breath activated powder inhaler cyanocobalamin (vitamin B-12) 1,000 mcg SQ .COMPLEX 09/21/18 03/08/19 History 1,000 mcg/mL injection solution multivitamin 1 tab PO QAM 09/21/18 03/08/19 History CPAP Machine #1 ea 01/04/19 02/20/19 Rx miscellaneous medical supply #1 ea 01/04/19 02/20/19 Rx ergocalciferol (vitamin D2) 50,000 unit PO WE 01/17/19 03/08/19 History [Vitamin D2] duloxetine 30 mg capsule,delayed 30 mg PO QAM #30 cap 01/18/19 03/08/19 Rx release hydroxyzine HCl 25 mg tablet 25 mg PO TID PRN #30 tab 01/18/19 03/08/19 Rx enoxaparin 60 mg SUBCUT Q12H #100 ml 01/20/19 03/08/19 Rx folic acid 1 mg PO QAM #30 tab 01/20/19 03/08/19 Rx sennosides [Senokot] 17.2 mg PO QAM PRN #30 tab 01/20/19 03/08/19 Rx magnesium oxide 400 mg (241.3 mg 400 mg PO BID tab 01/24/19 03/08/19 History magnesium) tablet ondansetron HCl 8 mg tablet 8 mg PO Q8H PRN tab 01/24/19 03/08/19 History Marya-Sequels (iron-vit c) 1 tab PO QAM 02/05/19 03/08/19 History naproxen 250 mg tablet 250 mg PO Q12H PRN #60 tab 02/15/19 03/08/19 Rx oxycodone 10 mg tablet 10 mg PO TID #30 tab 02/24/19 03/08/19 Rx oxybutynin chloride 15 mg PO DAILY 03/08/19 03/08/19 History Allergies Allergy/AdvReac Type Severity Reaction Status Date / Time vancomycin Allergy Severe MATT Verified 03/08/19 14:02 citalopram Allergy Intermediate Hives Verified 03/08/19 14:02 adhesive tape AdvReac Mild Rash Verified 03/08/19 14:02 Past Med/Surg History Medical History Amputee Anxiety Asthma Rarely use inhaler. Only during allergy seasons. Last use was about 3 weeks ago. 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 05/20/12) s/p SAMPLE TAILOR shunt AND REPLACED AT AGE 2 Hypothyroidism Migraine HX OF Neurogenic bladder ST CATH 6X DAILY AND PRN Osteoarthritis Progressive lipodystrophy Seasonal allergies REASON FOR INHALER RX (HAS NOT USED FOR A LONG TIME) Sleep apnea Spina bifida of lumbar region Urinary incontinence Vitamin D deficiency Surgical History H/O transurethral destruction of bladder lesion TURBT 08/17/18 History of amputation below knee 2/2 osteomylitis History of amputation below knee History of cystoscopy History of dilatation and curettage UTERINE ABLATION History of esophagogastroduodenoscopy (EGD) History of left below knee amputation secondary to osteomyelitis from traumatic injury History of open reduction and internal fixation (ORIF) procedure LEFT LEG History of reduction of breast (Resolved 05/20/12) History of surgery MULTIPLE SURGERIES ON LEFT LEG (I&D'S) History of tooth extraction Hx laparoscopic cholecystectomy Hx of bilateral breast reduction surgery S/P panniculectomy Status post gastric bypass for obesity Family History Grandmother (Paternal) Diabetes Grandfather (Paternal) Diabetes Coronary heart disease Aunt Diabetes Uncle Diabetes Uncle Diabetes Other No significant family history Social History Preferred Language: Arabic Communication Ability: Effective Visual Impairment: No Limitations Hearing Ability: Normal 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 Beliefs That Will Affect Care: None marital status: Current Living Situation: Spouse current occupational status: disabled Other Information That Helps Us Care for You: No Feels Safe at Home: Yes Safety Concerns: Feels Safe At This Time Smoking Status: Never smoker Tobacco Type: cigarettes ; Cigarettes Per Day: 10 CIG IN THE PAST MONTH ; Second Hand Exposure: Yes ; Hx Alcohol Use: No Hx Substance Use: No Childhood Exposure to Second-Hand Smoke: Yes caffeine: Yes Dental Care, Regularly: No Physical Activity Frequency: Does not Exercise Seatbelt Use: sometimes Sunscreen Use: Yes Review of Systems Other (Limited secondary to semi-responsiveness) Physical Exam Vital Signs Vital Signs - 24 hr 03/08/19 13:46 03/08/19 13:49 03/08/19 13:50 Temperature Temperature Source Pulse Rate 168 H 168 H 169 H Pulse Rate [Apical] Pulse Rate from SpO2 Sensor 167 H 168 H 161 H Pulse Rhythm Pulse Rhythm [Apical] Pulse Strength Pulse Strength [Apical] Respiratory Rate 36 H 27 H 38 H Respiratory Effort / Characteristics Respiratory Depth Respiratory Pattern Blood Pressure Blood Pressure [Right Arm] Blood Pressure Mean 57 Blood Pressure Mean [Right Arm] Blood Pressure Position Blood Pressure Position [Right Arm] Pulse Oximetry 97 97 98 Oxygen Delivery Method Nasal Cannula Nasal Cannula Nasal Cannula Oxygen Flow Rate 2 2 2 Sepsis Recent Fever Within 48 Hours Sepsis New/Unexplained Change in Mental Status Sepsis Action Taken by Nursing 03/08/19 13:51 03/08/19 13:55 03/08/19 13:59 Temperature 38.7 C H Temperature Source Rectal Pulse Rate 169 H 175 H 158 H Pulse Rate [Apical] Pulse Rate from SpO2 Sensor 130 H 163 H Pulse Rhythm Regular Pulse Rhythm [Apical] Pulse Strength Normal Pulse Strength [Apical] Respiratory Rate 28 H 18 36 H Respiratory Effort / Characteristics Non-Labored Spontaneous Respiratory Depth Normal Respiratory Pattern Tachypnea Blood Pressure 47/39 L 50/40 L Blood Pressure [Right Arm] Blood Pressure Mean 42 43 Blood Pressure Mean [Right Arm] Blood Pressure Position Lying Blood Pressure Position [Right Arm] Pulse Oximetry 100 95 97 Oxygen Delivery Method Nasal Cannula Nasal Cannula Nasal Cannula Oxygen Flow Rate 2 2 2 Sepsis Recent Fever Within 48 Hours Yes Sepsis New/Unexplained Change in Mental Status Yes Sepsis Action Taken by Nursing Physician Notified 03/08/19 14:00 03/08/19 14:05 03/08/19 14:10 Temperature Temperature Source Pulse Rate 167 H 160 H 139 H Pulse Rate [Apical] Pulse Rate from SpO2 Sensor 168 H 161 H 139 H Pulse Rhythm Pulse Rhythm [Apical] Pulse Strength Pulse Strength [Apical] Respiratory Rate 17 35 H 18 Respiratory Effort / Characteristics Respiratory Depth Respiratory Pattern Blood Pressure Blood Pressure [Right Arm] Blood Pressure Mean Blood Pressure Mean [Right Arm] Blood Pressure Position Blood Pressure Position [Right Arm] Pulse Oximetry 97 92 96 Oxygen Delivery Method Nasal Cannula Nasal Cannula Nasal Cannula Oxygen Flow Rate 2 2 2 Sepsis Recent Fever Within 48 Hours Sepsis New/Unexplained Change in Mental Status Sepsis Action Taken by Nursing 03/08/19 14:11 03/08/19 14:14 03/08/19 14:16 Temperature Temperature Source Pulse Rate 131 H 131 H Pulse Rate [Apical] 136 H Pulse Rate from SpO2 Sensor 131 H 131 H Pulse Rhythm Pulse Rhythm [Apical] Regular Pulse Strength Pulse Strength [Apical] Normal Respiratory Rate 20 25 H 23 Respiratory Effort / Characteristics Non-Labored Spontaneous Respiratory Depth Normal Respiratory Pattern Regular Blood Pressure 81/54 L 107/66 Blood Pressure [Right Arm] 78/48 L Blood Pressure Mean 63 74 Blood Pressure Mean [Right Arm] 58 Blood Pressure Position Blood Pressure Position [Right Arm] Lying Pulse Oximetry 96 96 94 Oxygen Delivery Method Nasal Cannula Nasal Cannula Nasal Cannula Oxygen Flow Rate 2 2 2 Sepsis Recent Fever Within 48 Hours Sepsis New/Unexplained Change in Mental Status Sepsis Action Taken by Nursing 03/08/19 14:17 03/08/19 14:20 03/08/19 14:25 Temperature Temperature Source Pulse Rate 128 H 115 H 117 H Pulse Rate [Apical] Pulse Rate from SpO2 Sensor 129 H 115 H 116 H Pulse Rhythm Pulse Rhythm [Apical] Pulse Strength Pulse Strength [Apical] Respiratory Rate 40 H 18 23 Respiratory Effort / Characteristics Respiratory Depth Respiratory Pattern Blood Pressure 94/65 L 105/67 Blood Pressure [Right Arm] Blood Pressure Mean 71 87 Blood Pressure Mean [Right Arm] Blood Pressure Position Blood Pressure Position [Right Arm] Pulse Oximetry 94 95 96 Oxygen Delivery Method Nasal Cannula Nasal Cannula Nasal Cannula Oxygen Flow Rate 2 2 2 Sepsis Recent Fever Within 48 Hours Sepsis New/Unexplained Change in Mental Status Sepsis Action Taken by Nursing 03/08/19 14:30 03/08/19 14:35 03/08/19 14:40 Temperature Temperature Source Pulse Rate 116 H 115 H 113 H Pulse Rate [Apical] Pulse Rate from SpO2 Sensor 117 H 115 H 109 H Pulse Rhythm Pulse Rhythm [Apical] Pulse Strength Pulse Strength [Apical] Respiratory Rate 27 H 20 20 Respiratory Effort / Characteristics Respiratory Depth Respiratory Pattern Blood Pressure 105/66 107/70 104/63 Blood Pressure [Right Arm] Blood Pressure Mean 76 81 72 Blood Pressure Mean [Right Arm] Blood Pressure Position Blood Pressure Position [Right Arm] Pulse Oximetry 96 97 97 Oxygen Delivery Method Nasal Cannula Nasal Cannula Nasal Cannula Oxygen Flow Rate 2 2 2 Sepsis Recent Fever Within 48 Hours Sepsis New/Unexplained Change in Mental Status Sepsis Action Taken by Nursing 03/08/19 14:45 03/08/19 14:50 03/08/19 14:54 Temperature Temperature Source Pulse Rate 113 H 109 H Pulse Rate [Apical] Pulse Rate from SpO2 Sensor 114 H 102 H 111 H Pulse Rhythm Pulse Rhythm [Apical] Pulse Strength Pulse Strength [Apical] Respiratory Rate 34 H 19 27 H Respiratory Effort / Characteristics Respiratory Depth Respiratory Pattern Blood Pressure 92/60 L Blood Pressure [Right Arm] Blood Pressure Mean 74 Blood Pressure Mean [Right Arm] Blood Pressure Position Blood Pressure Position [Right Arm] Pulse Oximetry 93 91 100 Oxygen Delivery Method Nasal Cannula Nasal Cannula Nasal Cannula Oxygen Flow Rate 2 2 2 Sepsis Recent Fever Within 48 Hours Sepsis New/Unexplained Change in Mental Status Sepsis Action Taken by Nursing 03/08/19 14:56 03/08/19 15:03 03/08/19 15:12 Temperature Temperature Source Pulse Rate 109 H Pulse Rate [Apical] 100 H 106 H Pulse Rate from SpO2 Sensor 111 H Pulse Rhythm Pulse Rhythm [Apical] Pulse Strength Pulse Strength [Apical] Respiratory Rate 17 14 14 Respiratory Effort / Characteristics Non-Labored Respiratory Depth Normal Normal Respiratory Pattern Blood Pressure Blood Pressure [Right Arm] 94/61 L 78/58 L Blood Pressure Mean Blood Pressure Mean [Right Arm] 72 64 Blood Pressure Position Blood Pressure Position [Right Arm] Pulse Oximetry 100 100 100 Oxygen Delivery Method Nasal Cannula Nasal Cannula Nasal Cannula Oxygen Flow Rate 2 2 2 Sepsis Recent Fever Within 48 Hours Sepsis New/Unexplained Change in Mental Status Sepsis Action Taken by Nursing GENERAL: Patient appears distressed. She is dirty and covered in her own urine and feces. HENT: Exam performed. - Head: Normocephalic and atraumatic. - Mouth/Throat: The oropharynx is clear. Mucous membrane is dry. No trismus in the jaw. No dental abscesses or uvula swelling. No oropharyngeal exudate or tonsillar abscesses. EYES: Pupils are 2 and reactive. NECK: Normal range of motion. Neck supple. No JVD present. No spinous process tenderness present. No carotid bruit present. No rigidity. No tracheal deviation and normal range of motion present. CV: Tachycardic rate, regular rhythm, normal heart sounds and intact distal pulses. There is no peripheral edema. Palpable radial pulses bue. PULM/CHEST: Ronchi. Chest Wall: Port in the left anterior chest with no surrounding erythema. ABD: The abdomen is soft. Bowel sounds are normal. MUSC/SKEL:Left BKA. NEURO: GCS is 12. Procedures Central Line Placement Right Femoral: Time Out Performed: Yes Patient Placed on Monitor/Pulse Ox: Yes MD Prep: mask, gown and gloves Central Line Prep: Chlorhexidine scrub Local Anesthetic: lidocaine 1% Amount of anesthesia used (mL): 4 Ultrasound Used for Placement: Yes Central Line Lumen Inserted: triple Post Procedure: sutured in place, good blood return (no pulsatile blood return, blood appeared dark and venous), all ports aspirated, flushed, capped and sterile dressing applied Patient Tolerated Procedure: well Complications: none Course Course 1344: The patient was evaluated in room B1, and a complete history and physical examination were performed. 1359: I spoke to the about the patient's condition. 1410: Dr. Metcalf put in an IO at this time. 1416: I performed a central line placement at this time. See procedure note for details. 1448: I reviewed the patient's case with Dr. Guillen - Critical Care, [facility]. 1500: I reviewed the patient's case with Dr. Ji - Hospitalist, [facility]. Dr. Ji will evaluate the patient for further management. 1516: The patient's blood pressure is now 75/64, so we will start her on Levophed. Consultations Consultation #1: I reviewed the patient's case with Dr. Giullen - Critical Care, [facility]. Time: 14:48 Consultation #2: I reviewed the patient's case with Dr. Ji - Hospitalist, [facility]. Dr. Ji will evaluate the patient for further management. Time: 15:00 Administered Medications Norepinephrine Bitartrate 8 mg (/ Dextrose) 508 mls @ 8.489 mls/hr IV .Q24H JANAY; Protocol Stop: 04/07/19 15:29 Last Titration: 03/08/19 17:30 Dose: 0.04 mcg/kg/min, 8.5 mls/hr Documented by: [id number] Titration: 03/08/19 16:32 Dose: 0.03 mcg/kg/min, 6.4 mls/hr Documented by: [id number] Admin: 03/08/19 15:30 Dose: 0.05 mcg/kg/min, 10.6 mls/hr Documented by: [id number] Cosigned by: [id number] Linezolid (Zyvox) 600 mg in 300 mls @ 200 mls/hr IV Q12H JANAY; Protocol Stop: 03/10/19 16:59 Last Admin: 03/08/19 17:43 Dose: 200 mls/hr Documented by: [id number] Potassium Chloride (K Maximo / Wtr) 20 meq in 100 mls @ 50 mls/hr IV Q2H JANAY Stop: 03/08/19 21:51 Last Admin: 03/08/19 18:35 Dose: 50 mls/hr Documented by: [id number] Sodium Chloride (Nss 1000ml) 1,000 mls @ 90 mls/hr IV .Q11H7M JANAY Stop: 04/07/19 18:44 Last Admin: 03/08/19 19:00 Dose: 90 mls/hr Documented by: Discontinued Medications Acetaminophen (Ofirmev) Confirm Administered Dose 1,000 mg IV .STK-MED ONE Stop: 03/08/19 14:16 Last Admin: 03/08/19 14:18 Dose: 1,000 mg Documented by: [id number] Sodium Chloride (Nss 1000ml) 1,000 mls @ 999 mls/hr IV .Q1H1M ONE Stop: 03/08/19 14:47 Last Infusion: 03/08/19 15:06 Dose: 0 mls/hr Documented by: [id number] Admin: 03/08/19 14:18 Dose: 999 mls/hr Documented by: [id number] Cefepime HCl (Maxipime) 2,000 mg in 20 mls @ 5 mls/min IV NOW STA; Protocol Stop: 03/08/19 14:24 Last Admin: 03/08/19 14:28 Dose: 5 mls/min Documented by: [id number] Sodium Chloride (Nss 1000ml) 1,000 mls @ 999 mls/hr IV .Q1H1M ONE Stop: 03/08/19 15:30 Last Infusion: 03/08/19 15:06 Dose: 0 mls/hr Documented by: [id number] Admin: 03/08/19 14:18 Dose: 999 mls/hr Documented by: [id number] Sodium Chloride (Nss 1000ml) 1,000 mls @ 999 mls/hr IV .Q1H1M ONE Stop: 03/08/19 16:06 Last Infusion: 03/08/19 17:32 Dose: 0 mls/hr Documented by: [id number] Admin: 03/08/19 16:31 Dose: 999 mls/hr Documented by: [id number] Magnesium Sulfate/Dextrose (Magnesium Sulfate / D5w) 1 gm in 100 mls @ 100 mls/hr IV Q1H JANAY Stop: 03/08/19 17:29 Last Infusion: 03/08/19 18:01 Dose: 0 mls/hr Documented by: [id number] Admin: 03/08/19 16:31 Dose: 100 mls/hr Documented by: [id number] Infusion: 03/08/19 16:24 Dose: 100 mls/hr Documented by: [id number] Admin: 03/08/19 15:24 Dose: 100 mls/hr Documented by: [id number] Sodium Chloride (Nss 1000ml) 1,000 mls @ 999 mls/hr IV .Q1H1M JANAY Stop: 03/08/19 18:30 Last Admin: 03/08/19 17:43 Dose: 999 mls/hr Documented by: [id number] Magnesium Sulfate/Dextrose (Magnesium Sulfate / D5w) 1 gm in 100 mls @ 100 mls/hr IV ONE ONE Stop: 03/08/19 18:19 Last Admin: 03/08/19 17:55 Dose: 100 mls/hr Documented by: [id number] Linezolid (Zyvox) 600 mg IV Q12H [facility]; Protocol Stop: 03/10/19 14:59 Last Admin: 03/08/19 18:01 Dose: Not Given Documented by: [id number] Naloxone HCl (Narcan) Confirm Administered Dose 0.8 mg .ROUTE .STK-MED ONE Stop: 03/08/19 13:43 Last Admin: 03/08/19 13:50 Dose: 0.4 mg Documented by: [id number] Critical Care Time Critical Care Time: Yes I have personally spent 114 minutes of critical care time in the direct management of this patient. This includes bedside care, interpretation of diagnostic studies, and testing, discussion with consultants, patient, and family members, and other required patient management activities. This 114 minutes is in excess of all separately billable procedures. Medical Decision Making Medical Records Attestation: I reviewed the patient's medical records. Home Medications Current Medication List: was personally reviewed by me Laboratory Data Attestation: I reviewed the patient's lab results. Result diagrams: 03/08/19 14:18 03/08/19 18:31 Lab Results 03/08/19 03/08/19 03/08/19 Range/Units 14:00 14:14 14:15 WBC (4.8-10.8) K/uL RBC (4.2-5.4) M/uL Hgb (12.0-16.0) g/dL POC Hgb 9.9 L (12.0-16.0) g/dl Hct (37-47) % POC Hct 29 L (37-47) % MCV (80-100) fL MCH (25-34) pg MCHC (32-36) g/dL RDW Std Deviation (36.4-46.3) fL RDW Coeff of Jennifer (11.5-14.5) % Plt Count (130-400) K/uL MPV (7.4-10.4) fL Immature Gran % (Auto) % Neut % (Auto) % Lymph % (Auto) % [place] % (Auto) % Eos % (Auto) % Baso % (Auto) % Immature Gran # (Auto) (0.00-0.02) K/uL Neut # (Auto) (1.4-6.5) K/uL Lymph # (Auto) (1.2-3.4) K/uL [place] # (Auto) (0.11-0.59) K/uL Eos # (Auto) (0-0.5) K/uL Baso # (Auto) (0-0.2) K/uL Absolute Nucleated RBC (0-0) K/uL Nucleated RBC % (auto) % ESR (0-21) mm/hr PT (9.0-12.0) Seconds INR (0.9-1.1) APTT (21.0-31.0) Seconds PTT Ratio VBG pH (7.36-7.41) VBG pCO2 (38-50) mmHg VBG pO2 mmHg VBG HCO3 mmol/L VBG O2 Saturation % VBG Base Excess mEq/L Carboxyhemoglobin % THgb Barometric Pressure mm/Hg POC Sodium 130 L (135-144) mEq/L Sodium (136-145) mmol/L POC Potassium 4.0 (3.3-5.0) mEq/L Potassium (3.5-5.1) mmol/L POC Chloride 100 L (101-112) mEq/L Chloride (98-107) mmol/L Carbon Dioxide (21-32) mmol/L POC Total CO2 23 L (24-31) mEq/l Anion Gap (3-11) POC Anion Gap 12.0 L (16-25) mmol/L POC BUN 36 H (7-18) mg/dl BUN (7-18) mg/dl Creatinine (0.6-1.2) mg/dl POC Creatinine 1.1 (0.6-1.3) mg/dl Est Cr Clr Drug Dosing Est GFR ( Amer) Est GFR (Non-Af Amer) BUN/Creatinine Ratio (10-20) Glucose (70-99) mg/dl POC Glucose (other) 158 H (70-99) mg/dl POC Lactic Acid Marcin 4.49 H (0.90-1.70) mmol/L Lactate (0.4-2.0) mmol/L Calcium (8.5-10.1) mg/dl POC Ioniz Calcium Bruna 2.07 H* (1.12-1.32) mmol/l Magnesium (1.8-2.4) mg/dl Total Bilirubin (0.2-1) mg/dl Direct Bilirubin (0-0.2) mg/dl AST (15-37) U/L ALT (12-78) U/L Alkaline Phosphatase (45-117) U/L Ammonia (11-32) umol/L Total Creatine Kinase (26-192) U/L POC Troponin I 0.10 H (0-0.045) ng/ml Troponin I (0-0.045) ng/ml C-Reactive Protein (0-0.29) mg/dl Total Protein (6.4-8.2) gm/dl Albumin (3.4-5.0) gm/dl Lipase (73-393) U/L Procalcitonin (0-0.5) ng/ml Urine Color Urine Appearance (Clear) Urine pH (4.5-7.5) Ur Specific [place] (1.000-1.030) Urine Protein (Negative) Urine Glucose (UA) (Negative) Urine Ketones (Negative) Urine Blood (Negative) Urine Nitrite (Negative) Urine Bilirubin (Negative) Urine Urobilinogen (Negative) Ur Leukocyte Esterase (Negative) Urine WBC (Auto) (0-5) /hpf Urine RBC (Auto) (0-4) /hpf U Hyaline Cast (Auto) (0-5) /lpf U Epithel Cells (Auto) (0-5) /lpf Urine Bacteria (Auto) (Negative) Urine Yeast 03/08/19 03/08/19 03/08/19 Range/Units 14:18 14:18 14:18 WBC 11.19 H (4.8-10.8) K/uL RBC 3.17 L (4.2-5.4) M/uL Hgb 9.4 L (12.0-16.0) g/dL POC Hgb (12.0-16.0) g/dl Hct 28.9 L (37-47) % POC Hct (37-47) % MCV 91.2 (80-100) fL MCH 29.7 (25-34) pg MCHC 32.5 (32-36) g/dL RDW Std Deviation 48.8 H (36.4-46.3) fL RDW Coeff of Jennifer 14.7 H (11.5-14.5) % Plt Count 263 (130-400) K/uL MPV 9.4 (7.4-10.4) fL Immature Gran % (Auto) 2.6 % Neut % (Auto) 84.2 % Lymph % (Auto) 8.0 % [place] % (Auto) 4.6 % Eos % (Auto) 0.4 % Baso % (Auto) 0.2 % Immature Gran # (Auto) 0.29 H (0.00-0.02) K/uL Neut # (Auto) 9.43 H (1.4-6.5) K/uL Lymph # (Auto) 0.90 L (1.2-3.4) K/uL [place] # (Auto) 0.51 (0.11-0.59) K/uL Eos # (Auto) 0.04 (0-0.5) K/uL Baso # (Auto) 0.02 (0-0.2) K/uL Absolute Nucleated RBC 0.03 H (0-0) K/uL Nucleated RBC % (auto) 0.3 % ESR (0-21) mm/hr PT (9.0-12.0) Seconds INR (0.9-1.1) APTT (21.0-31.0) Seconds PTT Ratio VBG pH 7.48 H (7.36-7.41) VBG pCO2 32 L (38-50) mmHg VBG pO2 78 mmHg VBG HCO3 23 mmol/L VBG O2 Saturation 95.3 % VBG Base Excess -0.1 mEq/L Carboxyhemoglobin 0.4 % THgb Barometric Pressure 733.7 mm/Hg POC Sodium (135-144) mEq/L Sodium (136-145) mmol/L POC Potassium (3.3-5.0) mEq/L Potassium (3.5-5.1) mmol/L POC Chloride (101-112) mEq/L Chloride (98-107) mmol/L Carbon Dioxide (21-32) mmol/L POC Total CO2 (24-31) mEq/l Anion Gap (3-11) POC Anion Gap (16-25) mmol/L POC BUN (7-18) mg/dl BUN (7-18) mg/dl Creatinine (0.6-1.2) mg/dl POC Creatinine (0.6-1.3) mg/dl Est Cr Clr Drug Dosing Est GFR ( Amer) Est GFR (Non-Af Amer) BUN/Creatinine Ratio (10-20) Glucose (70-99) mg/dl POC Glucose (other) (70-99) mg/dl POC Lactic Acid Marcin (0.90-1.70) mmol/L Lactate (0.4-2.0) mmol/L Calcium (8.5-10.1) mg/dl POC Ioniz Calcium Bruna (1.12-1.32) mmol/l Magnesium (1.8-2.4) mg/dl Total Bilirubin (0.2-1) mg/dl Direct Bilirubin (0-0.2) mg/dl AST (15-37) U/L ALT (12-78) U/L Alkaline Phosphatase (45-117) U/L Ammonia (11-32) umol/L Total Creatine Kinase (26-192) U/L POC Troponin I (0-0.045) ng/ml Troponin I (0-0.045) ng/ml C-Reactive Protein (0-0.29) mg/dl Total Protein (6.4-8.2) gm/dl Albumin (3.4-5.0) gm/dl Lipase (73-393) U/L Procalcitonin (0-0.5) ng/ml Urine Color Urine Appearance (Clear) Urine pH (4.5-7.5) Ur Specific [place] (1.000-1.030) Urine Protein (Negative) Urine Glucose (UA) (Negative) Urine Ketones (Negative) Urine Blood (Negative) Urine Nitrite (Negative) Urine Bilirubin (Negative) Urine Urobilinogen (Negative) Ur Leukocyte Esterase (Negative) Urine WBC (Auto) (0-5) /hpf Urine RBC (Auto) (0-4) /hpf U Hyaline Cast (Auto) (0-5) /lpf U Epithel Cells (Auto) (0-5) /lpf Urine Bacteria (Auto) (Negative) Urine Yeast 03/08/19 03/08/19 03/08/19 Range/Units 14:39 14:39 14:39 WBC (4.8-10.8) K/uL RBC (4.2-5.4) M/uL Hgb (12.0-16.0) g/dL POC Hgb (12.0-16.0) g/dl Hct (37-47) % POC Hct (37-47) % MCV (80-100) fL MCH (25-34) pg MCHC (32-36) g/dL RDW Std Deviation (36.4-46.3) fL RDW Coeff of Jennifer (11.5-14.5) % Plt Count (130-400) K/uL MPV (7.4-10.4) fL Immature Gran % (Auto) % Neut % (Auto) % Lymph % (Auto) % [place] % (Auto) % Eos % (Auto) % Baso % (Auto) % Immature Gran # (Auto) (0.00-0.02) K/uL Neut # (Auto) (1.4-6.5) K/uL Lymph # (Auto) (1.2-3.4) K/uL [place] # (Auto) (0.11-0.59) K/uL Eos # (Auto) (0-0.5) K/uL Baso # (Auto) (0-0.2) K/uL Absolute Nucleated RBC (0-0) K/uL Nucleated RBC % (auto) % ESR (0-21) mm/hr PT 16.5 H (9.0-12.0) Seconds INR 1.7 H (0.9-1.1) APTT 49.5 H* (21.0-31.0) Seconds PTT Ratio 1.8 VBG pH (7.36-7.41) VBG pCO2 (38-50) mmHg VBG pO2 mmHg VBG HCO3 mmol/L VBG O2 Saturation % VBG Base Excess mEq/L Carboxyhemoglobin % THgb Barometric Pressure mm/Hg POC Sodium (135-144) mEq/L Sodium 137 (136-145) mmol/L POC Potassium (3.3-5.0) mEq/L Potassium 3.3 L (3.5-5.1) mmol/L POC Chloride (101-112) mEq/L Chloride 107 (98-107) mmol/L Carbon Dioxide 23 (21-32) mmol/L POC Total CO2 (24-31) mEq/l Anion Gap 7.0 (3-11) POC Anion Gap (16-25) mmol/L POC BUN (7-18) mg/dl BUN 36 H (7-18) mg/dl Creatinine 0.87 (0.6-1.2) mg/dl POC Creatinine (0.6-1.3) mg/dl Est Cr Clr Drug Dosing Not Reportable Est GFR ( Amer) 90.7 Est GFR (Non-Af Amer) 78.2 BUN/Creatinine Ratio 41.4 H (10-20) Glucose 119 H (70-99) mg/dl POC Glucose (other) (70-99) mg/dl POC Lactic Acid Marcin (0.90-1.70) mmol/L Lactate 4.2 H* (0.4-2.0) mmol/L Calcium 12.3 H* (8.5-10.1) mg/dl POC Ioniz Calcium Bruna (1.12-1.32) mmol/l Magnesium 1.1 L (1.8-2.4) mg/dl Total Bilirubin 0.3 (0.2-1) mg/dl Direct Bilirubin < 0.1 (0-0.2) mg/dl AST 31 (15-37) U/L ALT 17 (12-78) U/L Alkaline Phosphatase 144 H (45-117) U/L Ammonia (11-32) umol/L Total Creatine Kinase 231 H (26-192) U/L POC Troponin I (0-0.045) ng/ml Troponin I 0.162 H* (0-0.045) ng/ml C-Reactive Protein (0-0.29) mg/dl Total Protein 4.0 L (6.4-8.2) gm/dl Albumin 1.2 L (3.4-5.0) gm/dl Lipase 133 (73-393) U/L Procalcitonin (0-0.5) ng/ml Urine Color Urine Appearance (Clear) Urine pH (4.5-7.5) Ur Specific [place] (1.000-1.030) Urine Protein (Negative) Urine Glucose (UA) (Negative) Urine Ketones (Negative) Urine Blood (Negative) Urine Nitrite (Negative) Urine Bilirubin (Negative) Urine Urobilinogen (Negative) Ur Leukocyte Esterase (Negative) Urine WBC (Auto) (0-5) /hpf Urine RBC (Auto) (0-4) /hpf U Hyaline Cast (Auto) (0-5) /lpf U Epithel Cells (Auto) (0-5) /lpf Urine Bacteria (Auto) (Negative) Urine Yeast 03/08/19 03/08/19 03/08/19 Range/Units 14:39 14:39 14:39 WBC (4.8-10.8) K/uL RBC (4.2-5.4) M/uL Hgb (12.0-16.0) g/dL POC Hgb (12.0-16.0) g/dl Hct (37-47) % POC Hct (37-47) % MCV (80-100) fL MCH (25-34) pg MCHC (32-36) g/dL RDW Std Deviation (36.4-46.3) fL RDW Coeff of Jennifer (11.5-14.5) % Plt Count (130-400) K/uL MPV (7.4-10.4) fL Immature Gran % (Auto) % Neut % (Auto) % Lymph % (Auto) % [place] % (Auto) % Eos % (Auto) % Baso % (Auto) % Immature Gran # (Auto) (0.00-0.02) K/uL Neut # (Auto) (1.4-6.5) K/uL Lymph # (Auto) (1.2-3.4) K/uL [place] # (Auto) (0.11-0.59) K/uL Eos # (Auto) (0-0.5) K/uL Baso # (Auto) (0-0.2) K/uL Absolute Nucleated RBC (0-0) K/uL Nucleated RBC % (auto) % ESR 8 (0-21) mm/hr PT (9.0-12.0) Seconds INR (0.9-1.1) APTT (21.0-31.0) Seconds PTT Ratio VBG pH (7.36-7.41) VBG pCO2 (38-50) mmHg VBG pO2 mmHg VBG HCO3 mmol/L VBG O2 Saturation % VBG Base Excess mEq/L Carboxyhemoglobin % THgb Barometric Pressure mm/Hg POC Sodium (135-144) mEq/L Sodium (136-145) mmol/L POC Potassium (3.3-5.0) mEq/L Potassium (3.5-5.1) mmol/L POC Chloride (101-112) mEq/L Chloride (98-107) mmol/L Carbon Dioxide (21-32) mmol/L POC Total CO2 (24-31) mEq/l Anion Gap (3-11) POC Anion Gap (16-25) mmol/L POC BUN (7-18) mg/dl BUN (7-18) mg/dl Creatinine (0.6-1.2) mg/dl POC Creatinine (0.6-1.3) mg/dl Est Cr Clr Drug Dosing Est GFR ( Amer) Est GFR (Non-Af Amer) BUN/Creatinine Ratio (10-20) Glucose (70-99) mg/dl POC Glucose (other) (70-99) mg/dl POC Lactic Acid Marcin (0.90-1.70) mmol/L Lactate (0.4-2.0) mmol/L Calcium (8.5-10.1) mg/dl POC Ioniz Calcium Bruna (1.12-1.32) mmol/l Magnesium (1.8-2.4) mg/dl Total Bilirubin (0.2-1) mg/dl Direct Bilirubin (0-0.2) mg/dl AST (15-37) U/L ALT (12-78) U/L Alkaline Phosphatase (45-117) U/L Ammonia 38.8 H (11-32) umol/L Total Creatine Kinase (26-192) U/L POC Troponin I (0-0.045) ng/ml Troponin I (0-0.045) ng/ml C-Reactive Protein 10.30 H (0-0.29) mg/dl Total Protein (6.4-8.2) gm/dl Albumin (3.4-5.0) gm/dl Lipase (73-393) U/L Procalcitonin (0-0.5) ng/ml Urine Color Urine Appearance (Clear) Urine pH (4.5-7.5) Ur Specific [place] (1.000-1.030) Urine Protein (Negative) Urine Glucose (UA) (Negative) Urine Ketones (Negative) Urine Blood (Negative) Urine Nitrite (Negative) Urine Bilirubin (Negative) Urine Urobilinogen (Negative) Ur Leukocyte Esterase (Negative) Urine WBC (Auto) (0-5) /hpf Urine RBC (Auto) (0-4) /hpf U Hyaline Cast (Auto) (0-5) /lpf U Epithel Cells (Auto) (0-5) /lpf Urine Bacteria (Auto) (Negative) Urine Yeast 03/08/19 03/08/19 03/08/19 Range/Units 14:39 14:40 14:55 WBC (4.8-10.8) K/uL RBC (4.2-5.4) M/uL Hgb (12.0-16.0) g/dL POC Hgb (12.0-16.0) g/dl Hct (37-47) % POC Hct (37-47) % MCV (80-100) fL MCH (25-34) pg MCHC (32-36) g/dL RDW Std Deviation (36.4-46.3) fL RDW Coeff of Jennifer (11.5-14.5) % Plt Count (130-400) K/uL MPV (7.4-10.4) fL Immature Gran % (Auto) % Neut % (Auto) % Lymph % (Auto) % [place] % (Auto) % Eos % (Auto) % Baso % (Auto) % Immature Gran # (Auto) (0.00-0.02) K/uL Neut # (Auto) (1.4-6.5) K/uL Lymph # (Auto) (1.2-3.4) K/uL [place] # (Auto) (0.11-0.59) K/uL Eos # (Auto) (0-0.5) K/uL Baso # (Auto) (0-0.2) K/uL Absolute Nucleated RBC (0-0) K/uL Nucleated RBC % (auto) % ESR (0-21) mm/hr PT (9.0-12.0) Seconds INR (0.9-1.1) APTT (21.0-31.0) Seconds PTT Ratio VBG pH (7.36-7.41) VBG pCO2 (38-50) mmHg VBG pO2 mmHg VBG HCO3 mmol/L VBG O2 Saturation % VBG Base Excess mEq/L Carboxyhemoglobin % THgb Barometric Pressure mm/Hg POC Sodium (135-144) mEq/L Sodium (136-145) mmol/L POC Potassium (3.3-5.0) mEq/L Potassium (3.5-5.1) mmol/L POC Chloride (101-112) mEq/L Chloride (98-107) mmol/L Carbon Dioxide (21-32) mmol/L POC Total CO2 (24-31) mEq/l Anion Gap (3-11) POC Anion Gap (16-25) mmol/L POC BUN (7-18) mg/dl BUN (7-18) mg/dl Creatinine (0.6-1.2) mg/dl POC Creatinine (0.6-1.3) mg/dl Est Cr Clr Drug Dosing Est GFR ( Amer) Est GFR (Non-Af Amer) BUN/Creatinine Ratio (10-20) Glucose (70-99) mg/dl POC Glucose (other) (70-99) mg/dl POC Lactic Acid Marcin 3.78 H (0.90-1.70) mmol/L Lactate (0.4-2.0) mmol/L Calcium (8.5-10.1) mg/dl POC Ioniz Calcium Bruna (1.12-1.32) mmol/l Magnesium (1.8-2.4) mg/dl Total Bilirubin (0.2-1) mg/dl Direct Bilirubin (0-0.2) mg/dl AST (15-37) U/L ALT (12-78) U/L Alkaline Phosphatase (45-117) U/L Ammonia (11-32) umol/L Total Creatine Kinase (26-192) U/L POC Troponin I (0-0.045) ng/ml Troponin I (0-0.045) ng/ml C-Reactive Protein (0-0.29) mg/dl Total Protein (6.4-8.2) gm/dl Albumin (3.4-5.0) gm/dl Lipase (73-393) U/L Procalcitonin > 200.00 H (0-0.5) ng/ml Urine Color Dark Yellow Urine Appearance Turbid A (Clear) Urine pH 7.0 (4.5-7.5) Ur Specific [place] 1.017 (1.000-1.030) Urine Protein 2+ H (Negative) Urine Glucose (UA) Negative (Negative) Urine Ketones Negative (Negative) Urine Blood 3+ H (Negative) Urine Nitrite Negative (Negative) Urine Bilirubin Negative (Negative) Urine Urobilinogen Negative (Negative) Ur Leukocyte Esterase 3+ H (Negative) Urine WBC (Auto) >30 H (0-5) /hpf Urine RBC (Auto) >30 H (0-4) /hpf U Hyaline Cast (Auto) 5-10 H (0-5) /lpf U Epithel Cells (Auto) >30 H (0-5) /lpf Urine Bacteria (Auto) 4+ H (Negative) Urine Yeast Not Reportable Imaging Data Radiologist's Impression: Radiology results as stated below per my review and the radiologist's interpretation: XR chest 1V portable CLINICAL HISTORY: Altered mental status. COMPARISON STUDY: Chest CT January 17, 2019. Chest radiograph February 05, 2019. FINDINGS: Lung volumes are diminished. Patient is rotated. Left internal jugular central line remains in place. There is no lobar consolidation or evidence for pulmonary edema. Bibasilar opacities improved. Cardiomediastinal silhouette is stable with mild mediastinal widening. Cardiac size is normal. Anterior left fourth rib fracture is noted. This is minimally displaced and is probably subacute. IMPRESSION: 1. Minimal left basilar opacity, improved since exam of February 05, 2019. Low lung volumes. 3. Suspected subacute minimally displaced anterior left fourth rib fracture. No pneumothorax. 3. Low lung volumes. ACT 112: Negative or not required by law. Electronically signed by: Leon Srinivasan M.D. 03/08/2019 3:03 PM ECG Data Attestation: I personally reviewed and interpreted this ECG as follows: Indication: + altered mental status (semi-unresponsive) Rate (beats per minute): 176 Rhythm: + sinus tachycardia ECG Intervals/blocks: + Normal QRS, + Normal FL and + Normal QT-c ECG ST segments: no ST depression and no ST elevation Blood Pressure Blood Pressure Findings: Low blood pressure Blood Pressure Disposition: further management by hospitalist Head Trauma GCS Score: 12 MDM Narrative Patient was immediately seen in the resuscitation bay in room A1. On arrival the patient was tachycardic with a rate in the 170s. We were unable to obtain a automatic blood pressure. Manual blood pressure showed 50 over palp. Patient initially presented with chief complaint of altered mental status. Her POC glucose was within normal limits. Patient was semi-responsive on arrival, Narcan was given with no noticeable change in the patient's mental status. IV fluids were started through the patient's port. The patient had a rectal tempe rature of 38.2. 30 cc/kg bolus was started as sepsis was thought to be the cause of the patient's altered mental status hypotension and tachycardia. It was extremely difficult to obtain vascular access on the patient. Dr. Metcalf attempted to place IO for me. It was thought that the IO was not in place. A central line was placed by me. See procedure note. The patient's POC lactic acid was greater than 4. Status post 30 cc/kg bolus the patient's POC lactic only improved to 3.7. The patient's blood pressure and heart rate did improve with the IV fluids. The patient also became more alert. Patient does have a history of UTI induced sepsis. Aguilar catheter was placed. Family states that the patient does have advanced directives and does not want mechanical ventilation but they do not have the paperwork with them. Broad-spectrum antibiotics cefepime was given in the emergency department. I discussed with the hospitalist team and given that the patient's lactic acid only minimally improved after 30 cc/kg bolus this is thought that the patient should go to the ICU. I discussed with the senior adults director who agreed to accept the patient into the ICU. Labs were sent showed a lab lactic acid of 4.2. There is no leukocytosis. Patient's ionized calcium was 2.07. Patient's magnesium was also 1.4. Magnesium repletion began in the emergency department. Troponin was elevated 0. 162 which is thought to be due to acute kidney injury and septic shock. Chest x-ray showed no pneumonia. Prior to the patient going to the ICU, the patient became hypotensive again despite receiving a full 30 cc/kg fluid bolus and being on maintenance fluids. The patient was started on Levophed drip in the emergency department to her central line. Impression & Plan Septic shock, DAVID (acute kidney injury), Hypomagnesemia, UTI (urinary tract infection) Discharge Plan Visit Data *Final* Discharge Date/Time: 03/08/19 15:56 Chief Complaint: Unresponsive ED Provider: Corey Coronado Discharge Problem: Septic shock, DAVID (acute kidney injury), Hypomagnesemia, UTI (urinary tract infection) Patient Disposition: Admitted As Inpatient Discharge Instructions Interventions: ED Discharge Assessment Last Done: 03/08/19 15:56 Discharge Problem: UTI (urinary tract infection) Qualifiers: Urinary tract infection type: site unspecified Hematuria presence: without hematuria Qualified Code(s): N39.0 - Urinary tract infection, site not specified The scribe's documentation has been prepared under my direction and personally reviewed by me in its entirety. I confirm that the note above accurately reflects all work, treatment, procedures, and medical decision making performed by me.
[2019-03-08 19:00] LABS: Albumin Level 1.3 gm/dl (3.4-5.0); BUN Creatinine Ratio 48.1 (10-20); Creatinine Clr Calc Pharmacy 71.1 ml/min; Est GFR (African American) 118.5; Est GFR (Non-African American) 102.2; Magnesium 2.4 mg/dl (1.8-2.4); Potassium 3.3 mmol/L (3.5-5.1)
[2019-03-08] MEDS: SODIUM CHLORIDE 0.9% 1000ML 1,000 ML IV SCH (19:00)
[2019-03-08 19:03] LABS: Albumin Globulin Ratio 0.4 (0.9-2); Bilirubin,Total 0.4 mg/dl (0.2-1); Globulin 3.1 gm/dl (2.5-4.0); Phosphorus 1.8 mg/dl (2.5-4.9); Total Protein 4.4 gm/dl (6.4-8.2)
[2019-03-08] MEDS: fentaNYL citrate 100 MCG/2 ML VIAL IV PRN (19:46)
--- NOTE | 2019-03-08 19:54 | Communication Note ---
Date of Service: March 08, 2019 Had long discussion with patients family and patient regarding goals of care. Patient here with urosepsis with history of metastatic bladder cancer on palliative radiation and chemotherapy. is power of immigration attorney, he brought in patient's living will, power of immigration attorney and advanced directrive paperwork. They are both aware that her current radiation and chemotherapy is not curative. While reviewing advanced directive with patient and it was noted that patient's advanced directive clearly stated she would not like any antibiotics. and patient both agreed that that they have changed their minds on that point and would like us to continue with antibiotics, IV fluids and pressors. However they both agree that they would not want her to receive CPR under any circumstance, breathing tube under any circumstance, NG or OG tube under any circumstance, also declining any kind of surgery or procedure and declining any blood products. Discussed that these decisions could possibly result in patient's demise and they acknowledged this. Have updated patient's chart to DNR/DNI and updated night team.
[2019-03-08] MEDS ORDERED: CALCITONIN SALMON 400 UNITS/2 ML SQ ONE (20:17)
[2019-03-08] MEDS: ENOXAPARIN INJ 60 MG/0.6 ML SYR SQ SCH (20:24)
[2019-03-08] MEDS ORDERED: ZOLEDRONIC ACID 4 MG in 0.9 % SODIUM CHLORIDE 100 ML IV ONE (20:30)
[2019-03-08] MEDS ORDERED: CALCITONIN SALMON SQ ONE (21:00)
[2019-03-08] MEDS: CEFEPIME 1,000 MG in SYRINGE 0 ML IV SCH (22:11)
[2019-03-08 23:22] LABS: Calcium 11.4 mg/dl (8.5-10.1); Creatinine Clr Calc Pharmacy 81.7 ml/min; Potassium 4.4 mmol/L (3.5-5.1)
[2019-03-09] MEDS: fentaNYL citrate 100 MCG/2 ML VIAL IV PRN (00:41)
[2019-03-09] MEDS ORDERED: SODIUM CHLORIDE 0.9% 1000ML 500 ML IV ONE ×2 (01:16→03:49)
[2019-03-09] MEDS: SODIUM CHLORIDE 0.9% 1000ML 1,000 ML IV SCH (03:26)
[2019-03-09 04:54] LABS: BUN Creatinine Ratio 53.6 (10-20); Calcium 10.7 mg/dl (8.5-10.1); Creatinine Clr Calc Pharmacy 90.8 ml/min; Est GFR (African American) 128.4; Est GFR (Non-African American) 110.8; Potassium 4.1 mmol/L (3.5-5.1)
[2019-03-09] MEDS: LINEZOLID 600 MG/300 ML BAG IV SCH (05:56)
[2019-03-09] MEDS: CEFEPIME 1,000 MG in SYRINGE 0 ML IV SCH (05:56)
[2019-03-09] MEDS: ENOXAPARIN INJ 60 MG/0.6 ML SYR SQ SCH ×2 (09:29→21:07)
[2019-03-09] MEDS: D5W AND NSS 1,000 ML IV SCH ×2 (10:09→21:08)
[2019-03-09] MEDS ORDERED: CALCITONIN SALMON 400 UNITS/2 ML SQ ONE (10:15)
[2019-03-09] MEDS ORDERED: PIPERACILL/TAZOBAC CONSULT ACTIVE PRN (10:27)
[2019-03-09] MEDS ORDERED: PIPERACILLIN/TAZOBACTAM 3.375 GM in DEXTROSE 5% 100 ML IV ONE (11:00)
--- NOTE | 2019-03-09 13:59 | Hospitalist Progress Note ---
Date of Service March 09, 2019 Assessment & Plan (1) UTI (urinary tract infection): Sepsis due to bladder infection. The patient straight caths for neurogenic bladder from her cancer. - Abx per ICU team (2) Septic shock: In septic shock on presentation. On pressors. - As above (3) Diabetes mellitus: In the chart. A1c was only 5.1% in 06/2018. - Not on home meds - Monitor blood sugars if/when eating (4) Bladder cancer: Metastatic. On palliative chemo and radiation. - No inpatient needs at present (5) DVT (deep venous thrombosis): Unclear time frame for this. CTA chest on 01/17/2019 shows a few scattered age-indeterminant PEs, but there is a negative LE Doppler from the same day. - Continue Lovenox 60mg SQ Q12h Subjective Unresponsive for me in the morning. Review of Systems Review of Systems: Unobtainable due to cognitive status Physical Exam Constitutional: + acute distress and + lethargic Eyes: EOM intact bilaterally; no conjunctival abnormality ENMT: external ear and nose normal, oropharynx normal Neck: trachea midline, no thyromegaly normal visual inspection Respiratory: + respiratory distress Auscultation: + rhonchi Cardiovascular: Rate/Rhythm: regular rhythm and + tachycardic Heart Sounds: normal S1 and normal S2 Extremities: no edema Gastrointestinal (Abdomen): Inspection/Auscultation: abdomen normal to inspection; abdomen not distended Musculoskeletal: no cyanosis or clubbing, extremities motor strength 5/5 Skin: no rashes, warm and dry Neurologic: + does not move all extremities and + not awake Psychiatric: Orientation: + not alert, + not oriented to person and + uncooperative Results & Data Vital Signs (Past 12 Hours) Vital Signs Temp Pulse Resp BP Pulse Ox 03/09/19 12:24 83 31 H 83/59 L 93 03/09/19 12:00 120 H 26 H 96 03/09/19 11:56 37.6 C H 108 H 24 89/51 L 98 03/09/19 11:54 111 H 31 H 79/53 L 95 03/09/19 11:24 118 H 28 H 101/58 L 96 03/09/19 10:54 112 H 24 90/54 L 95 03/09/19 10:24 112 H 26 H 92/52 L 95 03/09/19 09:54 123 H 22 87/52 L 96 03/09/19 09:14 116 H 29 H 88/58 L 94 03/09/19 09:00 106 H 20 95 03/09/19 08:40 121 H 22 79/58 L 97 03/09/19 08:25 121 H 30 H 94/54 L 95 03/09/19 08:10 124 H 32 H 86/59 L 96 03/09/19 08:03 37.4 C 121 H 28 H 92/57 L 94 03/09/19 08:00 120 H 03/09/19 07:43 117 H 23 91/72 L 97 03/09/19 07:40 116 H 24 106/69 97 03/09/19 07:30 118 H 28 H 94 03/09/19 07:26 120 H 23 95 03/09/19 07:25 112 H 24 105/75 96 03/09/19 07:10 120 H 26 H 117/67 95 03/09/19 07:00 119 H 24 97 03/09/19 06:55 124 H 23 101/68 95 03/09/19 06:40 127 H 24 123/73 94 03/09/19 06:25 120 H 27 H 97/70 L 94 03/09/19 06:10 124 H 25 H 100/75 96 03/09/19 06:00 121 H 27 H 95 03/09/19 05:54 128 H 23 105/70 99 03/09/19 05:40 128 H 24 88/74 L 97 03/09/19 05:25 128 H 26 H 101/74 98 03/09/19 05:09 123 H 22 98/77 L 98 03/09/19 05:00 119 H 22 98 03/09/19 04:55 117 H 21 109/71 98 03/09/19 04:39 117 H 22 118/77 98 03/09/19 04:24 116 H 19 116/79 98 03/09/19 04:09 130 H 20 100/67 98 03/09/19 04:02 131 H 20 98 03/09/19 04:00 37 C 128 H 26 H 96 03/09/19 03:54 130 H 21 109/76 98 03/09/19 03:39 131 H 24 106/75 97 03/09/19 03:24 123 H 22 105/71 98 03/09/19 03:09 125 H 19 110/73 98 03/09/19 03:00 127 H 20 97 03/09/19 02:54 128 H 18 108/74 95 03/09/19 02:39 124 H 19 113/76 96 03/09/19 02:24 117 H 20 109/78 96 03/09/19 02:09 117 H 20 115/78 96 03/09/19 02:00 126 H 18 97 03/09/19 01:54 133 H 17 104/73 96 PG Care Time/CCT Total # of Minutes Spent Total Time Spent with Patient: Total time spent is greater than 50% in coordination of care (as documented) at patient's floor/unit and/or counseling patient: (1) UTI (urinary tract infection) Hematuria presence: without hematuria Urinary tract infection type: site unspecified Qualified Code(s): N39.0 - Urinary tract infection, site not specified (2) Diabetes mellitus Diabetes mellitus type: due to underlying condition Diabetes mellitus detention insulin use: without quarantine inspector use Diabetes mellitus complication status: without complication Qualified Code(s): E08.9 - Diabetes mellitus due to underlying condition without complications
--- NOTE | 2019-03-09 14:01 | Critical Care Progress Note ---
Date of Service March 09, 2019 Assessment & Plan (1) Septic shock: --Septic shock Likely secondary to urine tract infection --> previous urine cultures grew E. coli and Enterococcus faecalis which were sensitive to penicillin --> change cefepime to Zosyn so right has good enterococcal coverage Urine culture growing gram-negative bacilli. Follow-up septic work-up, urine culture, procalcitonin is greater than 200, CRP: 10.3 Status post IV fluid bolus. Patient is on norepinephrine for pressure support keep map greater than 65 --Hypercalcemia likely secondary to metastasis Could be secondary to mets to the spine, given that his elevated alk phos. PTH low, corrected calcium for albumin still high Continue with hydration Patient was given zoledronic acid 4 mg yesterday and calcitonin 4 international units/kg. --Metabolic encephalopathy Secondary to sepsis in addition to hypercalcemia Continue with antibiotics give IV fluids Mental status is better than at the time of presentation to the ER. Aspiration precautions -- Hx of metastatic bladder cancer On palliative radiation therapy --Severe protein calorie malnutrition Albumin is only 1.2 -- ESMER c/w CPAP with pressure of 11cm --History of spina bifida at Patient has atrophy of the right lower extremity Has ventricular shunt --History of recent DVT/PE On Lovenox therapeutic twice daily -- DNI/NO CPR Patient is a conditional code. Does not want to be resuscitated with CPR or intubated. She is okay with giving antibiotics and being on vasopressor if need be. Plan: Continue with pressor support to keep map greater than 65 Give 1 more dose of calcitonin today Palliative care consult to discuss goals of care Patient has poor appetite will continue with IV fluids for the time being. (2) Encephalopathy, toxic: (3) Pulmonary emboli: (4) Bladder cancer: Subjective Patient seen and examined at bedside. No acute distress, no adverse events overnight. Patient still on low-dose Levophed. Patient is awake and alert still complaining of abdominal pain. Denies any shortness of breath. No nausea or vomiting. Patient has poor appetite. No chest pain, no headache, no dizziness. Review of Systems Review of Systems: All systems reviewed & are unremarkable except as noted in HPI & below Physical Exam Physical Exam: Constitutional: No acute distress HEENT: EOMI, PERRLA, skull deformity appreciated Respiratory system: Good air entry bilaterally, no wheeze, no rhonchi, mild crackles bilateral lower lobes CVS: S1-S2 positive, no murmurs or gallops, tachycardia Abdomen: Soft, positive suprapubic tenderness, no rebound, mild epigastric tenderness, nondistended, positive bowel sounds x4 Extremities: +2 pulses bilateral radialis, decreased pulse right lower extremity, left BKA, no edema, no cyanosis Neuro: Awake alert oriented to place and self and time. Patient is slow to respond Psych: Normal mood and affect G/U: Positive Aguilar Left sided Port- a cath Skin: no rashes, warm and dry Lymphatic: no cervical or axillary lymphadenopathy Results & Data Vital Signs (Past 12 Hours) Vital Signs Temp Pulse Resp BP Pulse Ox 03/09/19 13:39 37.3 C 117 H 27 H 81/52 L 94 03/09/19 13:37 120 H 24 81/51 L 95 03/09/19 13:24 117 H 29 H 79/55 L 95 03/09/19 13:00 125 H 24 96 03/09/19 12:24 83 31 H 83/59 L 93 03/09/19 12:00 120 H 26 H 96 03/09/19 11:56 37.6 C H 108 H 24 89/51 L 98 03/09/19 11:54 111 H 31 H 79/53 L 95 03/09/19 11:24 118 H 28 H 101/58 L 96 03/09/19 10:54 112 H 24 90/54 L 95 03/09/19 10:24 112 H 26 H 92/52 L 95 03/09/19 09:54 123 H 22 87/52 L 96 03/09/19 09:14 116 H 29 H 88/58 L 94 03/09/19 09:00 106 H 20 95 03/09/19 08:40 121 H 22 79/58 L 97 03/09/19 08:25 121 H 30 H 94/54 L 95 03/09/19 08:10 124 H 32 H 86/59 L 96 03/09/19 08:03 37.4 C 121 H 28 H 92/57 L 94 03/09/19 08:00 120 H 03/09/19 07:43 117 H 23 91/72 L 97 03/09/19 07:40 116 H 24 106/69 97 03/09/19 07:30 118 H 28 H 94 03/09/19 07:26 120 H 23 95 03/09/19 07:25 112 H 24 105/75 96 03/09/19 07:10 120 H 26 H 117/67 95 03/09/19 07:00 119 H 24 97 03/09/19 06:55 124 H 23 101/68 95 03/09/19 06:40 127 H 24 123/73 94 03/09/19 06:25 120 H 27 H 97/70 L 94 03/09/19 06:10 124 H 25 H 100/75 96 03/09/19 06:00 121 H 27 H 95 03/09/19 05:54 128 H 23 105/70 99 03/09/19 05:40 128 H 24 88/74 L 97 03/09/19 05:25 128 H 26 H 101/74 98 03/09/19 05:09 123 H 22 98/77 L 98 03/09/19 05:00 119 H 22 98 03/09/19 04:55 117 H 21 109/71 98 03/09/19 04:39 117 H 22 118/77 98 03/09/19 04:24 116 H 19 116/79 98 03/09/19 04:09 130 H 20 100/67 98 03/09/19 04:02 131 H 20 98 03/09/19 04:00 37 C 128 H 26 H 96 03/09/19 03:54 130 H 21 109/76 98 03/09/19 03:39 131 H 24 106/75 97 03/09/19 03:24 123 H 22 105/71 98 03/09/19 03:09 125 H 19 110/73 98 03/09/19 03:00 127 H 20 97 03/09/19 02:54 128 H 18 108/74 95 03/09/19 02:39 124 H 19 113/76 96 03/09/19 02:24 117 H 20 109/78 96 03/09/19 02:09 117 H 20 115/78 96 03/09/19 02:00 126 H 18 97 03/08/19 14:18 03/09/19 04:06 Coding Level of Care Code Critical Care 1st 30-74 mins Diagnoses Septic shock A41.9; R65.21 Encephalopathy, toxic G92 Pulmonary emboli I26.99 Pulmonary embolism type: unspecified Chronicity: unspecified Acute cor pulmonale presence: unspecified Bladder cancer C67.9 Bladder location: unspecified site Time Spent (min) 45 (1) Pulmonary emboli Pulmonary embolism type: unspecified Chronicity: unspecified Acute cor pulmonale presence: unspecified Qualified Code(s): I26.99 - Other pulmonary embolism without acute cor pulmonale (2) Bladder cancer Bladder location: unspecified site Qualified Code(s): C67.9 - Malignant neoplasm of bladder, unspecified
[2019-03-09] MEDS: PIPERACILLIN/TAZOBACTAM 3.375 GM in DEXTROSE 5% 100 ML IV SCH ×2 (15:58→23:25)
[2019-03-09] MEDS ORDERED: ACETAMINOPHEN 650 MG SUPP PR STA (16:47)
[2019-03-09] MEDS ORDERED: SODIUM CHLORIDE 0.9% 500 ML IV SCH (17:00)
[2019-03-09] MEDS: NOREPINEPHRINE BIT INJ 8 MG in DEXTROSE 5% 500 ML IV SCH (17:56)
[2019-03-09] MEDS ORDERED: fentaNYL citrate 100 MCG/2 ML VIAL IV ONE (22:55)
[2019-03-10 04:16] LABS: INR 1.5 (0.9-1.1); Prothrombin Time 14.9 Seconds (9.0-12.0)
[2019-03-10 04:28] LABS: Albumin Level 1.2 gm/dl (3.4-5.0); Aspartate Aminotransferase 40 U/L (15-37); BUN Creatinine Ratio 34.8 (10-20); Bilirubin Direct < 0.1 mg/dl (0-0.2); Blood Urea Nitrogen 21 mg/dl (7-18); Calcium 8.6 mg/dl (8.5-10.1); Carbon Dioxide 22 mmol/L (21-32); Chloride 115 mmol/L (98-107); Est GFR (African American) 122.7; Est GFR (Non-African American) 105.9; Glucose 123 mg/dl (70-99); Magnesium 1.1 mg/dl (1.8-2.4); Potassium 2.9 mmol/L (3.5-5.1); Sodium 143 mmol/L (136-145)
[2019-03-10 04:39] LABS: Hematocrit (blood only) 19.9 % (37-47); Hemoglobin 6.3 g/dL (12.0-16.0); Mean Corpuscular Hemoglobin 28.9 pg (25-34); Mean Corpuscular Hgb Conc 31.7 g/dL (32-36); Mean Corpuscular Volume 91.3 fL (80-100); Platelet Count 148 K/uL (130-400); RDW Coefficient of Variation 15.8 % (11.5-14.5); RDW Standard Deviation 52.4 fL (36.4-46.3); Red Blood Count 2.18 M/uL (4.2-5.4); White Blood Count 6.57 K/uL (4.8-10.8)
[2019-03-10 04:47] LABS: Alanine Aminotransferase 26 U/L (12-78); Alkaline Phosphatase 165 U/L (45-117); Bilirubin,Total 0.3 mg/dl (0.2-1); Phosphorus 0.8 mg/dl (2.5-4.9); Total Protein 4.1 gm/dl (6.4-8.2)
[2019-03-10] MEDS ORDERED: POTASSIUM PHOS 3 MMOL/1 ML INFUSION IV STA (04:52)
[2019-03-10] MEDS ORDERED: MAGNESIUM SULFATE / D5W 1 GM/100 ML BAG IV ONE ×2 (04:52→04:54)
[2019-03-10] MEDS ORDERED: POTASSIUM PHOSPHATE 21 MMOL in SODIUM CHLORIDE 0.9% 500 ML IV ONE (05:00)
[2019-03-10] MEDS: POTASSIUM CHLORIDE / WTR 20 MEQ/100 ML PLCT IV SCH ×3 (05:26→08:48)
[2019-03-10] MEDS: D5W AND NSS 1,000 ML IV SCH ×2 (06:28→19:51)
[2019-03-10] MEDS ORDERED: SODIUM CHLORIDE 0.9% 500 ML IV ONE (07:43)
[2019-03-10] MEDS ORDERED: PANTOprazole 80 MG in DEXTROSE 5% 100 ML IV ONE (07:45)
[2019-03-10] MEDS: PIPERACILLIN/TAZOBACTAM 3.375 GM in DEXTROSE 5% 100 ML IV SCH ×2 (07:58→15:54)
--- NOTE | 2019-03-10 08:28 | Critical Care Progress Note ---
Date of Service March 10, 2019 Assessment & Plan (1) Septic shock: --Septic shock Likely secondary to urine tract infection --> previous urine cultures grew E. coli and Enterococcus faecalis which were sensitive to penicillin --> change cefepime to Zosyn so right has good enterococcal coverage Urine culture growing gram-negative bacilli. Follow-up septic work-up, urine culture, procalcitonin is greater than 200, CRP: 10.3 Status post IV fluid bolus. Patient is on norepinephrine for pressure support keep map greater than 65 -- Acute blood loss anaemia Likely secondary to GI bleed Type and screen Transfuse as needed to keep hemoglobin greater than 7 Monitor H&H Consult GI --Hypercalcemia likely secondary to metastasis Could be secondary to mets to the spine, given that his elevated alk phos, normal GGT. PTH low, corrected calcium 10.8 today Continue with hydration Patient was given zoledronic acid 4 mg 03/08/19 and calcitonin 4 international units/kg * 2. --Metabolic encephalopathy Secondary to sepsis in addition to hypercalcemia Continue with antibiotics give IV fluids give 500 bolus normal saline. Aspiration precautions -- Hx of metastatic bladder cancer On palliative radiation therapy --Severe protein calorie malnutrition Albumin is only 1.2 -- ESMER c/w CPAP with pressure of 11cm --History of spina bifida at Patient has atrophy of the right lower extremity Has ventricular shunt --History of recent DVT/PE Lovenox on hold because of GI bleed -- DNI/NO CPR -- Hypophosphatemia and hypokalemia and hypomagnesemia Being replaced right now We will repeat BMP in couple of hours. Patient is a conditional code. Does not want to be resuscitated with CPR or intubated or any blood products. She is okay with giving antibiotics and being on vasopressor if need be. Plan: Open hemoglobin of 3 g from last night today with melanotic stools. Likely upper GI bleed. Protonix 80 mg stat followed by 40 mg twice daily we will get GI consult Patient was on Lovenox being held now. Needs palliative care as patient from and in the initial conversation did not want any CPR intubated on any blood products. Hemoglobin being 6.3 usually will need at least 1 unit of PRBC. Patient is not in a state to make any decisions right now. We will get input from . Give 500 bolus normal saline. (2) Encephalopathy, toxic: (3) Pulmonary emboli: (4) Bladder cancer: Subjective Patient seen and examined at bedside. No acute distress. Overnight patient had melanotic stool. Hemoglobin was repeated which showed drop in hemoglobin of more than 2 g. Patient started on Protonix 80 mg stat dose followed by 40 mg twice daily. Looking at mental status patient is more alert and oriented today. This is most likely because the calcium has gone down after zoledronic acid and calcitonin. The phosphorus has gone down likely because of calcitonin use it being replaced right now. Patient denies any shortness of breath, no headache, no nausea or vomiting. No chest pain, abdominal pain has decreased but still persist on deep palpation. Patient still on Levophed 0.03 MCG per KG per minute. Review of Systems Review of Systems: All systems reviewed & are unremarkable except as noted in HPI & below Physical Exam Physical Exam: Constitutional: No acute distress HEENT: EOMI, PERRLA, skull deformity appreciated Respiratory system: Good air entry bilaterally, no wheeze, no rhonchi, minimal crackles bilateral lower lobes CVS: S1-S2 positive, no murmurs or gallops, tachycardia Abdomen: Soft, positive suprapubic tenderness, no rebound, mild epigastric tenderness, nondistended, positive bowel sounds x4 Extremities: +2 pulses bilateral radialis, decreased pulse right lower extremity, left BKA, no edema, no cyanosis Neuro: Awake alert oriented to place and self and time. Patient is slow to respond Psych: Normal mood and affect G/U: Positive [place] Skin: no rashes, warm and dry Lymphatic: no cervical or axillary lymphadenopathy Results & Data Vital Signs (Past 12 Hours) Vital Signs Temp Pulse Resp BP Pulse Ox 03/10/19 07:25 95 H 03/10/19 06:28 96 H 22 100/56 L 97 03/10/19 06:12 96 H 18 82/53 L 97 03/10/19 05:42 94 H 24 92/59 L 97 03/10/19 05:27 105 H 17 88/53 L 97 03/10/19 05:12 107 H 21 83/54 L 99 03/10/19 04:58 99 H 22 75/57 L 99 03/10/19 04:42 97 H 21 101/51 L 97 03/10/19 04:27 103 H 24 71/53 L 98 03/10/19 04:12 90 15 85/61 L 97 03/10/19 04:00 36.5 C 03/10/19 03:57 95 H 19 84/50 L 98 03/10/19 03:42 99 H 20 78/48 L 97 03/10/19 03:27 90 21 77/44 L 97 03/10/19 03:12 99 H 30 H 80/49 L 98 03/10/19 02:57 98 H 25 H 88/52 L 97 03/10/19 02:42 105 H 23 82/47 L 97 03/10/19 02:27 100 H 17 85/51 L 96 03/10/19 02:12 98 H 30 H 79/52 L 96 03/10/19 01:57 121 H 16 75/50 L 98 03/10/19 01:42 92 H 27 H 83/51 L 97 03/10/19 01:29 101 H 28 H 88/55 L 95 03/10/19 01:11 104 H 26 H 83/50 L 96 03/10/19 00:57 104 H 24 89/54 L 97 03/10/19 00:47 108 H 16 91/68 L 98 03/10/19 00:26 100 H 18 76/53 L 97 03/10/19 00:12 106 H 27 H 84/53 L 96 03/10/19 00:00 37.3 C 102 H 03/09/19 23:57 110 H 25 H 83/49 L 95 03/09/19 23:42 99 H 23 86/52 L 95 03/09/19 23:26 100 H 22 91/52 L 95 03/09/19 23:16 107 H 26 H 86/54 L 95 03/09/19 23:11 116 H 29 H 86/54 L 94 03/09/19 22:57 99 H 22 87/52 L 96 03/09/19 22:41 112 H 23 83/55 L 96 03/09/19 22:27 112 H 23 83/51 L 94 03/09/19 22:11 109 H 23 87/57 L 97 03/09/19 21:56 108 H 23 92/55 L 97 03/09/19 21:41 111 H 27 H 90/58 L 96 03/09/19 21:27 108 H 34 H 95/55 L 96 03/09/19 21:01 127 H 31 H 71/62 L 95 03/09/19 20:47 130 H 24 102/58 L 96 03/09/19 20:31 117 H 30 H 107/62 95 03/09/19 20:16 120 H 27 H 86/60 L 96 03/10/19 03:50 03/10/19 03:50 Coding Level of Care Code Critical Care 1st 30-74 mins Diagnoses Septic shock A41.9; R65.21 Encephalopathy, toxic G92 Pulmonary emboli I26.99 Pulmonary embolism type: unspecified Chronicity: unspecified Acute cor pulmonale presence: unspecified Bladder cancer C67.9 Bladder location: unspecified site Time Spent (min) 50 (1) Pulmonary emboli Pulmonary embolism type: unspecified Chronicity: unspecified Acute cor pul monale presence: unspecified Qualified Code(s): I26.99 - Other pulmonary embolism without acute cor pulmonale (2) Bladder cancer Bladder location: unspecified site Qualified Code(s): C67.9 - Malignant neoplasm of bladder, unspecified
--- NOTE | 2019-03-10 10:32 | Palliative Care Consultation ---
Date of Consultation March 10, 2019 Assessment & Plan (1) Goals of care, counseling/discussion: -48 year old female patient with metastatic bladder cancer currently undergoing palliative radiation treatment, spina bifida since , left BKA, chronic UTI, GERD, and other problems, presented to the hospital several days ago with urosepsis and was admitted to ICU on pressors. Patient was also hypercalcemic due to bone metastases which she has been given a bisphosphonate for. Patient seemed to be somewhat improving as far as the infection-- lactate had decreased. However, last evening she began to bleed-- likely upper GI. Her hgb today is 6.3, lactate back up to 5.5. She remains on levophed for blood pressure support. Patient has a living will which clearly states what her wishes are in the event of end stage disease-- which is no life prolonging measures including cpr, intubation, abx, blood products etc. Given patient's widespread metastatic disease and her history of multiple comorbidities, it is reasonable to say at this point that she does have and end stage condition-- and she is not improving with aggressive measures. If we are to push forward with aggressive care, would need blood products, EGD, etc. Patient's is POA. Palliative care is consulted to discuss goals of care. -Met with patient and /POADanish in room 109 this morning. Patient is awake, oriented to person and knows it's February 2019. She did not know where she was, or what time it was. She is unable to understand medical situation or make decisions which her agrees with. -Updated patient's on medical situation including the low hgb, likely GI bleed, and what treatment would entail for this. Even if we did push forward with treatment, it's uncertain how much time we would be buying the patient given that she has end stage cancer and is already so debilitated. After discussion, decided to transition to comfort measures only. -Returned to patient's room when her son, Kiran, was present. He agrees with the plan for [facility]. -Will stop blood work, stop pressors, stop abx. -Recommend: Morphine 2mg IV Q2h PRN pain or SOB. Patient and family counseled on the secondary side effects of morphine such as sedation and respiratory depr ession. Lorazepam 0.5mg IV Q4h PRN anxiety/agitation. Atropine 1% oph soln 4 drops SL Q1h PRN secretions. -Family wants to wait for other family members to arrive prior to stopping the pressors. Patient's grandchildren are going to visit as well. Discussed that patient could still survive for days, possibly even weeks, depending on how her body responds to stopping the pressors. would like to get patient home if possible, but also understands she could pass away quickly in the hospital. We will see how she does. -Palliative care will continue to follow. (2) UTI (urinary tract infection): Hematuria presence: without hematuria Urinary tract infection type: site unspecified Qualified Code(s): N39.0 - Urinary tract infection, site not specified (3) Septic shock: (4) Anemia: Anemia type: unspecified type Qualified Code(s): D64.9 - Anemia, unspecified (5) Bladder cancer: Bladder location: unspecified site Qualified Code(s): C67.9 - Malignant neoplasm of bladder, unspecified Supervising Physician Co-Signing Physician Notes Chart reviewed, pt seen and examined, pt's at bedside PE: pt awake and alert, NAD HEENT: EOMI, hearing WNL Resp: unlabored CV: tachycardic Abd: not distended Neuro: alert and oriented to person Agree with above note assessment and plan as per MULUGETA Chambers - will cont to follow to provide support and assist family with medical decision making History of Present Illness Reason for Consultation: Goals of care Requesting Physician: Dr. Brewer Attending Physician: Santiago Almaraz MD History of Present Illness This 48 year old female patient with metastatic bladder cancer currently undergoing palliative radiation treatment, spina bifida since , left BKA, chronic UTI, GERD, and other problems, presented to the hospital several days ago with urosepsis and was admitted to ICU on pressors. Patient was also hypercalcemic due to bone metastases which she has been given a bisphosphonate for. Patient seemed to be somewhat improving as far as the infection-- lactate had decreased. However, last evening she began to bleed-- likely upper GI. Her hgb today is 6.3, lactate back up to 5.5. She remains on levophed for blood pressure support. Patient has a living will which clearly states what her wishes are in the event of end stage disease-- which is no life prolonging measures including cpr, intubation, abx, blood products etc. Given patient's widespread metastatic disease and her history of multiple comorbidities, it is reasonable to say at this point that she does have and end stage condition-- and she is not improving with aggressive measures. If we are to push forward with aggressive care, would need blood products, EGD, etc. Patient's is POA. Palliative care is consulted to discuss goals of care. Thank you kindly for this consult. Palliative care team will follow as needed. Allergies Allergy/AdvReac Type Severity Reaction Status Date / Time vancomycin Allergy Severe MATT Verified 03/08/19 14:02 citalopram Allergy Intermediate Hives Verified 03/08/19 14:02 adhesive tape AdvReac Mild Rash Verified 03/08/19 14:02 Home Medications Home Medications Medication Instructions Recorded Confirmed Type zinc 50 mg PO QAM 08/15/18 03/08/19 History albuterol sulfate 90 mcg/actuation 1 inh INHALATION QID PRN #1 ea 09/21/18 03/08/19 Rx breath activated powder inhaler cyanocobalamin (vitamin B-12) 1,000 mcg SQ .COMPLEX 09/21/18 03/08/19 History 1,000 mcg/mL injection solution multivitamin 1 tab PO QAM 09/21/18 03/08/19 History CPAP Machine #1 ea 01/04/19 02/20/19 Rx miscellaneous medical supply #1 ea 01/04/19 02/20/19 Rx ergocalciferol (vitamin D2) 50,000 unit PO WE 01/17/19 03/08/19 History [Vitamin D2] duloxetine 30 mg capsule,delayed 30 mg PO QAM #30 cap 01/18/19 03/08/19 Rx release hydroxyzine HCl 25 mg tablet 25 mg PO TID PRN #30 tab 01/18/19 03/08/19 Rx enoxaparin 60 mg SUBCUT Q12H #100 ml 01/20/19 03/08/19 Rx folic acid 1 mg PO QAM #30 tab 01/20/19 03/08/19 Rx sennosides [Senokot] 17.2 mg PO QAM PRN #30 tab 01/20/19 03/08/19 Rx magnesium oxide 400 mg (241.3 mg 400 mg PO BID tab 01/24/19 03/08/19 History magnesium) tablet ondansetron HCl 8 mg tablet 8 mg PO Q8H PRN tab 01/24/19 03/08/19 History Marya-Sequels (iron-vit c) 1 tab PO QAM 02/05/19 03/08/19 History naproxen 250 mg tablet 250 mg PO Q12H PRN #60 tab 02/15/19 03/08/19 Rx oxycodone 10 mg tablet 10 mg PO TID #30 tab 02/24/19 03/08/19 Rx oxybutynin chloride 15 mg PO DAILY 03/08/19 03/08/19 History Patient History Medical History (Updated 03/10/19 @ 10:29 by MULUGETA Constantino) Amputee Anxiety Asthma Rarely use inhaler. Only during allergy seasons. Last use was about 3 weeks ago. 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 Chronic UTI REASON FOR MACROBID Depression Diabetes mellitus Dyslipidemia GERD (gastroesophageal reflux disease) Goals of care, counseling/discussion Hiatal hernia Hydrocephalus (Chronic 05/20/12) s/p [employer] shunt AND REPLACED AT AGE 2 Hypothyroidism Migraine HX OF Neurogenic bladder ST CATH 6X DAILY AND PRN Osteoarthritis Progressive lipodystrophy Seasonal allergies REASON FOR INHALER RX (HAS NOT USED FOR A LONG TIME) Sleep apnea Spina bifida of lumbar region Urinary incontinence Vitamin D deficiency Surgical History H/O transurethral destruction of bladder lesion TURBT 08/17/18 History of amputation below knee 2/2 osteomylitis History of amputation below knee History of cystoscopy History of dilatation and curettage UTERINE ABLATION History of esophagogastroduodenoscopy (EGD) History of left below knee amputation secondary to osteomyelitis from traumatic injury History of open reduction and internal fixation (ORIF) procedure LEFT LEG History of reduction of breast (Resolved 05/20/12) History of surgery MULTIPLE SURGERIES ON LEFT LEG (I&D'S) History of tooth extraction Hx laparoscopic cholecystectomy Hx of bilateral breast reduction surgery S/P panniculectomy Status post gastric bypass for obesity Family History Grandmother (Paternal) Diabetes Grandfather (Paternal) Diabetes Coronary heart disease Aunt Diabetes Uncle Diabetes Uncle Diabetes Other No significant family history Social History Preferred Language: [place] Communication Ability: Effective Visual Impairment: No Limitations Hearing Ability: Normal Film Or Tape Librarian Required: No Beliefs That Will Affect Care: None marital status: Current Living Situation: Spouse current occupational status: disabled Other Information That Helps Us Care for You: No Feels Safe at Home: Yes Safety Concerns: Feels Safe At This Time Smoking Status: Never smoker Tobacco Type: cigarettes ; Cigarettes Per Day: 10 CIG IN THE PAST MONTH ; Second Hand Exposure: Yes ; Hx Alcohol Use: No Hx Substance Use: No Childhood Exposure to Second-Hand Smoke: Yes caffeine: Yes Dental Care, Regularly: No Physical Activity Frequency: Does not Exercise Seatbelt Use: sometimes Sunscreen Use: Yes Review of Systems Review of Systems: Pain in back, not severe, unable to give a number rating. Other ROS difficult to obtain due to cognitive status/confusion. Physical Exam Constitutional: + ill appearing and + physical limitations; no acute distress ENMT: external ear and nose normal, oropharynx normal Respiratory: normal respiratory effort; no labored breathing Auscultation: + diminished lung sounds Cardiovascular: Rate/Rhythm: regular rhythm and + tachycardic Extremities: + edema (trace pitting edema to RLE) Gastrointestinal (Abdomen): Inspection/Auscultation: normal bowel sounds Percussion/Palpation: abdomen soft; abdomen nontender Skin: + pallor Neurologic: moves all extremities, awake and + confused Psychiatric: Orientation: oriented to person; + not oriented to place and + not oriented to time (did know it was February 2019, but did not know time) Insight: + poor insight Judgement: + poor judgement Results & Data Vital Signs (Past 12 Hours) Vital Signs Temp Pulse Resp BP Pulse Ox 03/10/19 09:12 107 H 14 103/81 94 03/10/19 08:57 101 H 16 79/56 L 85 L 03/10/19 08:43 103 H 22 100/49 L 93 03/10/19 08:27 92 H 18 96/63 L 97 03/10/19 08:12 98 H 14 86/62 L 77 L 03/10/19 07:57 93 H 22 84/51 L 97 03/10/19 07:42 101 H 23 94/55 L 98 03/10/19 07:27 36.8 C 101 H 19 97/61 L 95 03/10/19 07:25 95 H 03/10/19 07:12 106 H 25 H 102/58 L 95 03/10/19 06:57 94 H 19 91/58 L 98 03/10/19 06:42 106 H 12 92/46 L 98 03/10/19 06:40 102 H 17 91 03/10/19 06:28 96 H 22 100/56 L 97 03/10/19 06:12 96 H 18 82/53 L 97 03/10/19 05:42 94 H 24 92/59 L 97 03/10/19 05:27 105 H 17 88/53 L 97 03/10/19 05:12 107 H 21 83/54 L 99 03/10/19 04:58 99 H 22 75/57 L 99 03/10/19 04:42 97 H 21 101/51 L 97 03/10/19 04:27 103 H 24 71/53 L 98 03/10/19 04:12 90 15 85/61 L 97 03/10/19 04:00 36.5 C 03/10/19 03:57 95 H 19 84/50 L 98 03/10/19 03:42 99 H 20 78/48 L 97 03/10/19 03:27 90 21 77/44 L 97 03/10/19 03:12 99 H 30 H 80/49 L 98 03/10/19 02:57 98 H 25 H 88/52 L 97 03/10/19 02:42 105 H 23 82/47 L 97 03/10/19 02:27 100 H 17 85/51 L 96 03/10/19 02:12 98 H 30 H 79/52 L 96 03/10/19 01:57 121 H 16 75/50 L 98 03/10/19 01:42 92 H 27 H 83/51 L 97 03/10/19 01:29 101 H 28 H 88/55 L 95 03/10/19 01:11 104 H 26 H 83/50 L 96 03/10/19 00:57 104 H 24 89/54 L 97 03/10/19 00:47 108 H 16 91/68 L 98 03/10/19 00:26 100 H 18 76/53 L 97 03/10/19 00:12 106 H 27 H 84/53 L 96 03/10/19 00:00 37.3 C 102 H 03/09/19 23:57 110 H 25 H 83/49 L 95 03/09/19 23:42 99 H 23 86/52 L 95 03/09/19 23:26 100 H 22 91/52 L 95 03/09/19 23:16 107 H 26 H 86/54 L 95 03/09/19 23:11 116 H 29 H 86/54 L 94 03/09/19 22:57 99 H 22 87/52 L 96 03/09/19 22:41 112 H 23 83/55 L 96 03/09/19 22:27 112 H 23 83/51 L 94 Time Spent Midlevel 70 minutes with >50% of the time spent at bedside with patient and family discussing condition and GOC.
[2019-03-10] MEDS: fentaNYL citrate 100 MCG/2 ML VIAL IV PRN ×2 (11:36→16:15)
--- NOTE | 2019-03-10 13:59 | Hospitalist Progress Note ---
Date of Service March 10, 2019 Assessment & Plan (1) Bladder cancer: Metastatic. On palliative chemo and radiation. - Moving toward comfort care - Morphine PRN - Holding discontinuation of pressors until after family has arrived. (2) UTI (urinary tract infection): Sepsis due to bladder infection. The patient straight caths for neurogenic bladder from her cancer. - Abx per ICU team (3) Septic shock: In septic shock on presentation. On pressors. - As above (4) Diabetes mellitus: In the chart. A1c was only 5.1% in 06/2018. - Not on home meds - Monitor blood sugars if/when eating (5) DVT (deep venous thrombosis): Unclear time frame for this. CTA chest on 01/17/2019 shows a few scattered age-indeterminant PEs, but there is a negative LE Doppler from the same day. - Continue Lovenox 60mg SQ Q12h Subjective Awake and responding today, though able to give limited decision-making. Reports no fevers/chills, chest pain, shortness of breath, abdominal pain, nausea, or vomiting. Physical Exam Constitutional: + acute distress; not lethargic Eyes: EOM intact bilaterally; no conjunctival abnormality ENMT: external ear and nose normal, oropharynx normal Neck: trachea midline, no thyromegaly normal visual inspection Respiratory: no respiratory distress Auscultation: + rhonchi Cardiovascular: Rate/Rhythm: regular rhythm and + tachycardic Heart Sounds: normal S1 and normal S2 Extremities: no edema Gastrointestinal (Abdomen): Inspection/Auscultation: abdomen normal to inspection; abdomen not distended Musculoskeletal: no cyanosis or clubbing, extremities motor strength 5/5 Skin: no rashes, warm and dry Neurologic: moves all extremities and awake Psychiatric: Orientation: alert, oriented to person and cooperative Results & Data Vital Signs (Past 12 Hours) Vital Signs Temp Pulse Resp BP Pulse Ox 03/10/19 13:42 104 H 23 90/56 L 97 03/10/19 13:28 101 H 25 H 90/55 L 97 03/10/19 13:12 101 H 25 H 92/53 L 96 03/10/19 12:57 80 28 H 95/51 L 96 03/10/19 12:43 111 H 24 85/59 L 96 03/10/19 12:27 104 H 22 88/52 L 96 03/10/19 12:13 111 H 22 75/56 L 94 03/10/19 11:57 36.8 C 102 H 26 H 96/60 L 97 03/10/19 11:42 99/61 L 96 03/10/19 11:27 110 H 24 83/59 L 95 03/10/19 11:12 100 H 30 H 89/59 L 97 03/10/19 10:57 93 H 28 H 98/65 L 93 03/10/19 10:42 100 H 21 89/61 L 98 03/10/19 10:27 103 H 24 97/56 L 100 03/10/19 10:12 95 H 29 H 97/59 L 99 03/10/19 09:57 106 H 20 84/58 L 98 03/10/19 09:43 102 H 18 90/52 L 93 03/10/19 09:28 96 H 13 96/51 L 68 L 03/10/19 09:12 107 H 14 103/81 94 03/10/19 08:57 101 H 16 79/56 L 85 L 03/10/19 08:43 103 H 22 100/49 L 93 03/10/19 08:27 92 H 18 96/63 L 97 03/10/19 08:12 98 H 14 86/62 L 77 L 03/10/19 07:57 93 H 22 84/51 L 97 03/10/19 07:42 101 H 23 94/55 L 98 03/10/19 07:27 36.8 C 101 H 19 97/61 L 95 03/10/19 07:25 95 H 03/10/19 07:12 106 H 25 H 102/58 L 95 03/10/19 06:57 94 H 19 91/58 L 98 03/10/19 06:42 106 H 12 92/46 L 98 03/10/19 06:40 102 H 17 91 03/10/19 06:28 96 H 22 100/56 L 97 03/10/19 06:12 96 H 18 82/53 L 97 03/10/19 05:42 94 H 24 92/59 L 97 03/10/19 05:27 105 H 17 88/53 L 97 03/10/19 05:12 107 H 21 83/54 L 99 03/10/19 04:58 99 H 22 75/57 L 99 03/10/19 04:42 97 H 21 101/51 L 97 03/10/19 04:27 103 H 24 71/53 L 98 03/10/19 04:12 90 15 85/61 L 97 03/10/19 04:00 36.5 C 03/10/19 03:57 95 H 19 84/50 L 98 03/10/19 03:42 99 H 20 78/48 L 97 03/10/19 03:27 90 21 77/44 L 97 03/10/19 03:12 99 H 30 H 80/49 L 98 03/10/19 02:57 98 H 25 H 88/52 L 97 03/10/19 02:42 105 H 23 82/47 L 97 03/10/19 02:27 100 H 17 85/51 L 96 03/10/19 02:12 98 H 30 H 79/52 L 96 03/10/19 01:57 121 H 16 75/50 L 98 PG Care Time/CCT Total # of Minutes Spent Total Time Spent with Patient: Total time spent is greater than 50% in coordination of care (as documented) at patient's floor/unit and/or counseling patient: (1) UTI (urinary tract infection) Hematuria presence: without hematuria Urinary tract infection type: site unspecified Qualified Code(s): N39.0 - Urinary tract infection, site not specified (2) Diabetes mellitus Diabetes mellitus type: due to underlying condition Diabetes mellitus longterm insulin use: without longterm use Diabetes mellitus complication status: without complication Qualified Code(s): E08.9 - Diabetes mellitus due to underlying condition without complications
[2019-03-10] MEDS ORDERED: PANTOprazole 40 MG in SYRINGE 0 ML IV SCH (16:00)
[2019-03-10] MEDS: MoRPHine SULFATE 2 MG/ML CARP IV PRN ×2 (17:30→21:20)
[2019-03-10] MEDS ORDERED: LORazepam 0.5 MG/1 ML VIAL IV PRN (19:47)
[2019-03-10] MEDS: NOREPINEPHRINE BIT INJ 8 MG in DEXTROSE 5% 500 ML IV SCH (19:50)
[2019-03-11] MEDS: MoRPHine SULFATE 2 MG/ML CARP IV PRN ×4 (02:57→18:41)
[2019-03-11] MEDS: HEPARIN 100 UNIT/ML 5ML FLUSH FLUSH PRN ×2 (09:07→11:46)
--- NOTE | 2019-03-11 13:54 | Hospitalist Progress Note ---
Date of Service March 11, 2019 Assessment & Plan (1) Bladder cancer: Metastatic. On palliative chemo and radiation. - Moving toward comfort care - Morphine PRN, Ativan PRN, and atropine PRN - Increasing morphine today as family feels she is uncomfortable. (2) UTI (urinary tract infection): Sepsis due to bladder infection. The patient straight caths for neurogenic bladder from her cancer. - Hold abx. (3) Septic shock: In septic shock on presentation. On pressors. - As above (4) Diabetes mellitus: In the chart. A1c was only 5.1% in 06/2018. - Not on home meds (5) DVT (deep venous thrombosis): Unclear time frame for this. CTA chest on 01/17/2019 shows a few scattered age-indeterminant PEs, but there is a negative LE Doppler from the same day. - No Lovenox for comfort Subjective Moaning. She is alert and sometimes responds, but it is usually non-sensical. Review of Systems Review of Systems: Unobtainable due to cognitive status Physical Exam Constitutional: + acute distress; not lethargic Eyes: EOM intact bilaterally; no conjunctival abnormality ENMT: external ear and nose normal, oropharynx normal Neck: trachea midline, no thyromegaly normal visual inspection Respiratory: no respiratory distress Auscultation: + rhonchi Cardiovascular: Rate/Rhythm: regular rhythm and + tachycardic Heart Sounds: normal S1 and normal S2 Extremities: no edema Gastrointestinal (Abdomen): Inspection/Auscultation: abdomen normal to inspection; abdomen not distended Musculoskeletal: no cyanosis or clubbing, extremities motor strength 5/5 Skin: no rashes, warm and dry Neurologic: moves all extremities and awake Psychiatric: Orientation: alert, oriented to person and cooperative PG Care Time/CCT Total # of Minutes Spent Total Time Spent with Patient: Total time spent is greater than 50% in coordination of care (as documented) at patient's floor/unit and/or counseling patient: (1) UTI (urinary tract infection) Hematuria presence: without hematuria Urinary tract infection type: site unspecified Qualified Code(s): N39.0 - Urinary tract infection, site not specified (2) Diabetes mellitus Diabetes mellitus type: due to underlying condition Diabetes mellitus intermediate accountant insulin use: without residential use Diabetes mellitus complication status: without complication Qualified Code(s): E08.9 - Diabetes mellitus due to underlying condition without complications
[2019-03-12] MEDS: MoRPHine SULFATE 2 MG/ML CARP IV PRN ×3 (10:54→21:36)
[2019-03-12] MEDS: HEPARIN 100 UNIT/ML 5ML FLUSH FLUSH PRN (10:58)
--- NOTE | 2019-03-12 14:21 | Hospitalist Progress Note ---
Date of Service March 12, 2019 Assessment & Plan (1) Bladder cancer: Metastatic. On palliative chemo and radiation. - Moving toward comfort care - Morphine PRN, Ativan PRN, and atropine PRN - Increasing morphine today as family feels she is uncomfortable. - Family would like to avoid Ativan as it really knocked her out for several hours. Dispo: Inpatient hospice -> In an unbelievable event, her in the room this morning. We coded him for 20 minutes but were not able to revive him. As such, she has no one in her home that can care for her. Her mother and son are interested in hospice at a assisted which can be arranged on Wednesday. (2) UTI (urinary tract infection): Sepsis due to bladder infection. The patient straight caths for neurogenic bladder from her cancer. - Hold abx. (3) Septic shock: In septic shock on presentation. Was on pressors. - As above (4) Diabetes mellitus: In the chart. A1c was only 5.1% in 06/2018. - Not on home meds (5) DVT (deep venous thrombosis): Unclear time frame for this. CTA chest on 01/17/2019 shows a few scattered age-indeterminant PEs, but there is a negative LE Doppler from the same day. - No Lovenox for comfort Subjective Saying she wants to go home today; however, then follows with nonsensical follow up words. Review of Systems Review of Systems: Unobtainable due to cognitive status Physical Exam Constitutional: + acute distress; not lethargic Eyes: EOM intact bilaterally; no conjunctival abnormality ENMT: external ear and nose normal, oropharynx normal Neck: trachea midline, no thyromegaly normal visual inspection Respiratory: no respiratory distress Auscultation: + rhonchi Cardiovascular: Rate/Rhythm: regular rhythm and + tachycardic Heart Sounds: normal S1 and normal S2 Extremities: no edema Gastrointestinal (Abdomen): Inspection/Auscultation: abdomen normal to inspection; abdomen not distended Musculoskeletal: no cyanosis or clubbing, extremities motor strength 5/5 Skin: no rashes, warm and dry Neurologic: moves all extremities and awake Psychiatric: Orientation: alert, oriented to person and cooperative Results & Data Vital Signs (Past 12 Hours) Vital Signs BP 03/12/19 07:28 90/61 L PG Care Time/CCT Total # of Minutes Spent Total Time Spent with Patient: Total time spent is greater than 50% in coordination of care (as documented) at patient's floor/unit and/or counseling patient: (1) UTI (urinary tract infection) Hematuria presence: without hematuria Urinary tract infection type: site unspecified Qualified Code(s): N39.0 - Urinary tract infection, site not specified (2) Diabetes mellitus Diabetes mellitus type: due to underlying condition Diabetes mellitus long-term insulin use: without watermaster use Diabetes mellitus complication status: without complication Qualified Code(s): E08.9 - Diabetes mellitus due to underlying condition without complications
[2019-03-12] MEDS: LOPERAMIDE LIQUID 120 ML BOTTLE PO PRN (23:33)
[2019-03-13] MEDS: MoRPHine SULFATE 2 MG/ML CARP IV PRN ×4 (00:05→14:51)
[2019-03-13] MEDS: LOPERAMIDE LIQUID 120 ML BOTTLE PO PRN (09:47)
--- NOTE | 2019-03-13 16:49 | Hospitalist Progress Note ---
Date of Service March 13, 2019 Assessment & Plan (1) Bladder cancer: Patient is now on comfort measures. She is on morphine 2 mg every 2 hours. Will increase to 4 mg, monitor for comfort. (2) UTI (urinary tract infection): Antibiotics have been held per hospice. Continue to monitor (3) DVT (deep venous thrombosis): Patient was present on full dose Lovenox, this is also been discontinued. Subjective Patient was seen with multiple family members in room. Patient tells me she was having some pain, mostly in the abdomen. She was just given a dose of morphine but this seems to have helped incompletely. Patient is currently having no shortness of breath. Events of yesterday noted, patient was initially plan to go home with hospice but the suddenly in the hospital. There was some discussion regarding placement with hospice but I do not think the skilled nursing case manager has reevaluated the patient yet. Physical Exam Constitutional: + ill appearing and + altered mental status Neck: trachea midline, no thyromegaly Respiratory: normal respiratory effort Auscultation: lungs clear to auscultation bilaterally Cardiovascular: Rate/Rhythm: regular rhythm Heart Sounds: normal S1 and normal S2 Gastrointestinal (Abdomen): Percussion/Palpation: abdomen soft; abdomen nontender, no guarding and abdomen not rigid Musculoskeletal: Extremities: + amputation noted Neurologic: awake and + confused PG Care Time/CCT Total # of Minutes Spent Total Time Spent with Patient: Total time spent is greater than 50% in coordination of care (as documented) at patient's floor/unit and/or counseling patient:
[2019-03-13] MEDS ORDERED: MoRPHine SULFATE 4 MG/ML 1 ML CARP\\VIAL IV PRN (16:56)
[2019-03-14] MEDS: MoRPHine SULFATE 2 MG/ML CARP IV PRN ×2 (07:47→13:13)
[2019-03-14] MEDS: HEPARIN 100 UNIT/ML 5ML FLUSH FLUSH PRN ×2 (07:48→13:13)
[2019-03-14] MEDS: MoRPHine SULFATE 10 MG/0.5 ML UDP PO PRN ×2 (14:31→22:03)
--- NOTE | 2019-03-14 17:05 | Palliative Care Progress Note ---
Date of Service March 14, 2019 Assessment & Plan (1) Comfort measures only status: -Comfort measures only. -Discontinued IV morphine and started Roxanol 10mg PO Q3h PRN pain or SOB. Patient tolerating well. -Seems to also be having some musculoskeletal pain-- encouraged use of Tylenol or warm compress to neck. -Plan is for patient to transition to [facility] for hospice care later in the week. -Please contact palliative care with any further needs. (2) UTI (urinary tract infection): (3) Septic shock: (4) Anemia: (5) Bladder cancer: Subjective Patient seen in room 457 along with her mother. Patient is awake and comfortable after Roxanol given. Plan is for patient to transition to [facility] for hospice care later in the week. Review of Systems Review of Systems: C/o neck and back pain. Physical Exam Constitutional: + ill appearing and + physical limitations; no acute distress ENMT: external ear and nose normal, oropharynx normal Respiratory: normal respiratory effort; no labored breathing Auscultation: + diminished lung sounds Cardiovascular: Rate/Rhythm: regular rhythm and + tachycardic Extremities: + edema (trace pitting edema to RLE) Gastrointestinal (Abdomen): Inspection/Auscultation: normal bowel sounds Percussion/Palpation: abdomen soft; abdomen nontender Skin: + pallor Neurologic: moves all extremities, awake and + confused Psychiatric: Orientation: oriented to person; + not oriented to place Results & Data Vital Signs (Past 12 Hours) Vital Signs Temp Pulse Resp BP Pulse Ox 03/14/19 13:18 36.8 C 136 H 20 133/101 H 98 Time Spent Midlevel 35 minutes with >50% of the time spent at bedside with patient and family discussing plan of care and comfort measures. (1) UTI (urinary tract infection) Hematuria presence: without hematuria Urinary tract infection type: site unspecified Qualified Code(s): N39.0 - Urinary tract infection, site not specified (2) Anemia Anemia type: unspecified type Qualified Code(s): D64.9 - Anemia, unspecified (3) Bladder cancer Bladder location: unspecified site Qualified Code(s): C67.9 - Malignant neoplasm of bladder, unspecified
--- NOTE | 2019-03-14 21:35 | Hospitalist Progress Note ---
Date of Service March 14, 2019 Assessment & Plan (1) Comfort measures only status: patient admitted to ICU at presentation for septic shock due to ICU. ultimately was transitioned to comfort care measures on 03/10. palliative care team continues to follow. appreciate their recommendations. patient's suffered a code blue earlier this hospital stay and did not survive. she is grieving the loss of her spouse. supportive care given. encouraged her family to contact the cloth handler of her mormon to see if he/she could come to hospital to provide support. dispo - comfort care at [facility]? transition to SNF w/ hospice? social work assisting. (2) Septic shock: (3) UTI (urinary tract infection): (4) DVT (deep venous thrombosis): (5) DAVID (acute kidney injury): (6) Amputee: left BKA status (7) Bladder cancer: (8) Metastatic disease: bladder ca, stage 4 (9) Anemia: severe (10) Hypothyroidism: (11) Neurogenic bladder: cont suarez (12) Hydrocephalus: Subjective patient's mother at bedside during my visit. she has continued to use the morphine liquid prn for pain. very little appetite although did ask for regular food earlier today. no nausea or vomiting. denied dyspnea, chest pain, or abd pain. Review of Systems Constitutional: + fatigue; no fever and no chills Respiratory: no cough Cardiovascular: no chest pain Physical Exam Constitutional: + not well developed, + not well nourished and no acute distress sleepy; frontal bossing of forehead ENMT: Mouth: + dry oral mucous membranes Respiratory: Auscultation: + diminished lung sounds (bases) Cardiovascular: Rate/Rhythm: regular rhythm and + tachycardic Heart Sounds: normal S1 and normal S2 Vessels: no JVD Gastrointestinal (Abdomen): normal bowel sounds, soft, nontender, no hepatosplenomegaly Musculoskeletal: left BKA; deformity of right leg Skin: + pallor Psychiatric: Orientation: alert Results & Data Vital Signs (Past 12 Hours) Vital Signs Temp Pulse Resp BP Pulse Ox 03/14/19 13:18 36.8 C 136 H 20 133/101 H 98 PG Care Time/CCT Total # of Minutes Spent Total Time Spent with Patient: Total time spent is greater than 50% in coordination of care (as documented) at patient's floor/unit and/or counseling patient: (1) Bladder cancer Bladder location: unspecified site Qualified Code(s): C67.9 - Malignant neoplasm of bladder, unspecified (2) Anemia Anemia type: unspecified type Qualified Code(s): D64.9 - Anemia, unspecified (3) Hypothyroidism Hypothyroidism type: unspecified Qualified Code(s): E03.9 - Hypothyroidism, unspecified
[2019-03-15] MEDS: HEPARIN 100 UNIT/ML 5ML FLUSH FLUSH PRN ×2 (08:19→10:00)
[2019-03-15] MEDS: MoRPHine SULFATE 10 MG/0.5 ML UDP PO PRN (08:38)
[2019-03-15] MEDS ORDERED: MoRPHine SULFATE 2 MG/ML CARP ONE (09:57)
--- NOTE | 2019-03-15 15:30 | Hospitalist Progress Note ---
Date of Service March 15, 2019 Assessment & Plan (1) Bladder cancer: Metastatic. On palliative chemo and radiation. - Moving toward comfort care - Morphine PRN, Ativan PRN, and atropine PRN - Increasing morphine today as family feels she is uncomfortable. - Family would like to avoid Ativan as it really knocked her out for several hours. - Re-started IV pain mediation as they felt the PO was not helping. Will have palliative adjust the dose tomorrow. For now, use both as needed. Plan for [facility] tomorrow if able. (2) UTI (urinary tract infection): Sepsis due to bladder infection. The patient straight caths for neurogenic bladder from her cancer. - Hold abx. (3) Septic shock: In septic shock on presentation. Was on pressors. - As above (4) Diabetes mellitus: In the chart. A1c was only 5.1% in 06/2018. - Not on home meds (5) DVT (deep venous thrombosis): Unclear time frame for this. CTA chest on 01/17/2019 shows a few scattered age-indeterminant PEs, but there is a negative LE Doppler from the same day. - No Lovenox for comfort Subjective Unresponsive today at my exam time, though her sons felt she was in pain earlier in the day and she received both PO and IV morphine. Physical Exam Constitutional: + acute distress and + lethargic Eyes: EOM intact bilaterally; no conjunctival abnormality ENMT: external ear and nose normal, oropharynx normal Neck: trachea midline, no thyromegaly normal visual inspection Respiratory: no respiratory distress Auscultation: + rhonchi Cardiovascular: Rate/Rhythm: regular rhythm and + tachycardic Heart Sounds: normal S1 and normal S2 Extremities: no edema Gastrointestinal (Abdomen): Inspection/Auscultation: abdomen normal to inspection; abdomen not distended Musculoskeletal: no cyanosis or clubbing, extremities motor strength 5/5 Skin: no rashes, warm and dry Neurologic: moves all extremities; + not awake Psychiatric: Orientation: cooperative; + not alert and + not oriented to person PG Care Time/CCT Total # of Minutes Spent Total Time Spent with Patient: Total time spent is greater than 50% in coordination of care (as documented) at patient's floor/unit and/or counseling patient: (1) Bladder cancer Bladder location: unspecified site Qualified Code(s): C67.9 - Malignant neoplasm of bladder, unspecified (2) UTI (urinary tract infection) Hematuria presence: without hematuria Urinary tract infection type: site unspecified Qualified Code(s): N39.0 - Urinary tract infection, site not specified (3) Diabetes mellitus Diabetes mellitus type: due to underlying condition Diabetes mellitus intermediate project manager insulin use: without intermediate project manager use Diabetes mellitus complication status: without complication Qualified Code(s): E08.9 - Diabetes mellitus due to underlying condition without complications
[2019-03-15] MEDS: MoRPHine SULFATE 2 MG/ML CARP IV PRN ×2 (15:51→23:56)
[2019-03-16] MEDS: MoRPHine SULFATE 10 MG/0.5 ML UDP PO PRN ×3 (08:25→19:57)
--- NOTE | 2019-03-16 10:36 | Palliative Care Progress Note ---
Date of Service March 16, 2019 Assessment & Plan (1) Goals of care, counseling/discussion: -Patient less responsive today, even obtunded at times. Patient opened eyes prison but did not follow commands. -Apparently the patients mental status has been waxing and waning over the past few days. -The patient had breathing changes during my visit, with shallow respirations, then really deep diaphragmatic breathing. -Support provided to the son, who is understandably overwhelmed having his mother actively dying and losing his step father a few days ago after an unexpected cardiac arrest while he was visiting his . -Plan currently was for possible [facility] transfer in the near future, but I think that we are losing that window of opportunity rapidly to transfer this patient safely. I believe she truly is actively dying with hours to a few days of life expectancy. -patient had IV Morphine and PO Roxanol available, D/C IV Morphine as she is tolerating the Roxanol at this time and IF she would be stable for transfer, IV medicating would need to be discontinued. -Right pedal pulse present. Pt Left AKA. -Support provided to the patients son. -PPS: 10% -Palliative care to follow up tomorrow 03/17/2019 to assess stability. Currently do not feel patient is GIP candidate. 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 Plan for possible [facility] transfer in the near future. Patient son to meet with [facility] today. Patient opened her eyes half way, but did not follow any commands. Some breathing changes noted today. See A/P for further details. Review of Systems Review of Systems: Unobtainable due to reduced consciousness Physical Exam Physical Exam: Constitutional: + ill appearing and + frail appearing Respiratory: + respiratory distress and + labored breathing; + not able to speak in complete sentence Cardiovascular: RRR, no murmur, no edema Gastrointestinal (Abdomen): normal bowel sounds, soft, nontender, no hepatosplenomegaly Skin: + turgor decreased and + dry skin Genitourinary: suarez catheter in place Results & Data Vital Signs (Past 12 Hours) Vital Signs Temp Pulse Resp BP Pulse Ox 03/16/19 06:29 38.3 C H 144 H 22 79/55 L 93 03/15/19 22:48 38.4 C H 141 H 12 64/47 L 93 PG Care Time/CCT Total # of Minutes Spent Total Time Spent with Patient: Total time spent is greater than 50% in coordination of care (as documented) at patient's floor/unit and/or counseling patient: 35 Time Spent Midlevel Total time spent 35 minutes with > 50% of that time spent assessing the patient, discussing goals of care and symptom management discussion with pt son. (1) UTI (urinary tract infection) Hematuria presence: without hematuria Urinary tract infection type: site unspecified Qualified Code(s): N39.0 - Urinary tract infection, site not specified (2) Bladder cancer Bladder location: unspecified site Qualified Code(s): C67.9 - Malignant neoplasm of bladder, unspecified
[2019-03-16] MEDS: MoRPHine SULFATE 2 MG/ML CARP IV PRN (11:26)
[2019-03-16] MEDS ORDERED: LORazepam 1 MG TAB SL PRN (11:33)
--- NOTE | 2019-03-16 20:03 | Hospitalist Progress Note ---
Date of Service March 16, 2019 Assessment & Plan (1) Comfort measures only status: patient admitted to ICU at presentation for septic shock due to UTI, suarez-catheter associated. ultimately was transitioned to comfort care measures on 03/10/19. patient's suffered a code blue earlier this hospital stay (while visiting her) and did not survive. developed fever last pm, tachycardia, and hypotension. she is obtunded today. continue morphine prn and all other comfort care measures. support given to son at bedside. (2) Septic shock: at time of admission to the hospital; likely 2nd to suarez-catheter associated UTI (3) UTI (urinary tract infection): (4) DVT (deep venous thrombosis): (5) DAVID (acute kidney injury): (6) Amputee: left BKA status (7) Bladder cancer: (8) Metastatic disease: bladder ca, stage 4 (9) Anemia: severe (10) Hypothyroidism: (11) Neurogenic bladder: cont suarez (12) Hydrocephalus: Subjective 2 visits today. first visit was on AM rounds; patient obtunded, ?opened eyes to name being called only. 2nd visit was later in day; son at bedside. he reported she blinked her eyes once for him but otherwise nonverbal. pt had fevers last pm. Review of Systems Review of Systems: Unobtainable due to reduced consciousness Physical Exam Constitutional: + not well developed, + not well nourished and no acute distress obtunded ENMT: Mouth: + dry oral mucous membranes Respiratory: Auscultation: + diminished lung sounds (bases) Cardiovascular: Rate/Rhythm: regular rhythm and + tachycardic Heart Sounds: normal S1 and normal S2 Vessels: no JVD Gastrointestinal (Abdomen): normal bowel sounds, soft, nontender, no hepatosplenomegaly Musculoskeletal: left BKA; right leg deformity; trace edema Skin: + pallor Psychiatric: Orientation: + not alert and + not oriented x 3 PG Care Time/CCT Total # of Minutes Spent Total Time Spent with Patient: Total time spent is greater than 50% in coordination of care (as documented) at patient's floor/unit and/or counseling patient: (1) Bladder cancer Bladder location: unspecified site Qualified Code(s): C67.9 - Malignant neoplasm of bladder, unspecified (2) Anemia Anemia type: unspecified type Qualified Code(s): D64.9 - Anemia, unspecified (3) Hypothyroidism Hypothyroidism type: unspecified Qualified Code(s): E03.9 - Hypothyroidism, unspecified
[2019-03-17] MEDS: MoRPHine SULFATE 10 MG/0.5 ML UDP PO PRN ×3 (01:32→09:20)
[2019-03-17] MEDS: HEPARIN 100 UNIT/ML 5ML FLUSH FLUSH PRN (08:17)
[2019-03-17] MEDS: ATROPINE SULFATE 1% OP SOLN 2 ML BTL SL PRN ×3 (09:27→18:12)
[2019-03-17] MEDS ORDERED: SCOPOLAMINE 1.5 MG TDSY TD SCH (13:00)
[2019-03-17] MEDS: MoRPHine SULF/NSS 250 MG/250 ML BTL IV SCH ×2 (13:03→14:21)
[2019-03-17] MEDS ORDERED: CHECK SCOPOLAMINE PATCH PLACEMENT SCH (16:00)
--- NOTE | 2019-03-17 19:37 | Death Summary ---
Date of Service March 17, 2019 Pronouncement Note Date and Time of Date of : 03/17/19 Time of : 18:50 PCOD Preliminary cause of : Septic shock due to urinary tract infection Additional Data Attending physician: Christian Sanabria
--- NOTE | 2019-03-20 12:47 | Discharge Summary ---
Date of Service date of admission - March 08, 2019 date of - March 17, 2019 Admission HPI Per Admitting Provider This is a 48-year-old female with past medical history of metastatic bladder cancer to the spine that presents today with acute change in mental status. The patient can provide no history. I did get history from the emergency room physician. Family was present previously but has since left prior to my evaluation. Per the ER physician, the patient had been altered through most of the day. The family noted that she was unresponsive during holiday dinner. They brought her to the emergency room when the ER doctor noted that the patient was covered in urine and feces. At the time of her initial evaluation, her heart rate was in the 170s with a blood pressure of 50 over palp. Patient was treated emergently with aggressive IV hydration per sepsis protocol. Lactic acid was over 4, but has been trending down on repeat. At the time my evaluation, a Suarez catheter just been placed with very sedimented, purulent urine. The patient was awake but very disoriented and cannot answer questions or follow commands. Blood pressure improved into the low 100s with a heart rate of around 100. Patient was saturating well on 2 L. Discharge Data Consultations [employer] Palliative Care Hospital Course (1) Comfort measures only status: Patient was initially admitted to ICU at presentation for septic shock due to complicated UTI, suarez-catheter associated. Her initial stay was complicated by acute blood loss anemia - likely due to upper GI bleeding (presumed). She required pressor support for her shock. PRBCs were given for acute blood loss anemia. She was quite encephalopathic from the septic shock. Palliative care was consulted in light of her metastatic bladder cancer and numerous other comorbidities. Ultimately was transitioned to comfort care measures on 03/10/19. She was transferred to the floor for comfort care pathway. Very sadly the patient's suffered a code blue while visiting her on the medical unit and he did not survive. About 48 hours prior to her she developed recurrent fever, tachycardia, and hypotension. By the next day she was obtunded, and on 03/17/2019 she passed peacefully. (2) Septic shock: at time of admission to the hospital; likely 2nd to suarez-catheter associated UTI (3) UTI (urinary tract infection): Antibiotics have been held per hospice. Continue to monitor (4) DVT (deep venous thrombosis): Patient was present on full dose Lovenox, this is also been discontinued. (5) DAVID (acute kidney injury): (6) Amputee: left BKA status (7) Bladder cancer: Metastatic. On palliative chemo and radiation. - Moving toward comfort care - Morphine PRN, Ativan PRN, and atropine PRN - Increasing morphine today as family feels she is uncomfortable. - Family would like to avoid Ativan as it really knocked her out for several hours. - Re-started IV pain mediation as they felt the PO was not helping. Will have palliative adjust the dose tomorrow. For now, use both as needed. Plan for [facility] tomorrow if able. 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
== END 2019-03-17 21:40 | disposition expired | DRG 871 ==
LOC: ED 13:41 → 1E 15:21 → SUATTDRO 15:21 → 1E 15:56 → 4W 03-10 20:20